=== PATIENT | male | born 1950 | race Caucasian/White ===

== ENCOUNTER 2020-12-30 09:39 | Observation (INO) | payer MEDICARE, SELFPAY ==
[2020-12-30] VITALS (11 sets, daily range): BP systolic 117–174; BP diastolic 57–105; PULSE 56–68; RESP 16–18; TEMP 36.4–37; O2SAT 93–100; BMI 28.5; BMI 30.1
--- NOTE | 2020-12-30 09:51 | RAD_ITS ---
STUDY: X-RAY CHEST REASON FOR EXAM: Male, 70 years old. Weakness TECHNIQUE: Single AP portable view of the chest. COMPARISON: None. FINDINGS: EKG electrodes are seen. There is elevation of the right hemidiaphragm. Mild increased linear markings at the lung bases suggestive of a bibasilar linear atelectasis. There is no demonstrated pleural abnormality. Normal size heart. Normal mediastinum and german. Normal visualized pulmonary arteries. There is atherosclerotic tortuosity of the aortic arch and descending thoracic aorta. There are diffuse degenerative changes of the visualized thoracic spine. There is degenerative osteoarthritis of the bilateral shoulders. There is no demonstrated abnormality of the visualized soft tissue structures of the upper abdomen. RAD/Chest 1 View (Portable) IMPRESSION: Mild degree of the atelectasis at the lung bases. Electronically Signed: Yordan Negro MD at 10:47 EDT , Service support ,
--- NOTE | 2020-12-30 09:51 | CT_ITS ---
STUDY: CT BRAIN WITHOUT CONTRAST REASON FOR EXAM: Male, 70 years old. Headache. Decreased vision in the left eye. RADIATION DOSAGE (If Supplied By Facility): CTDIvol = ( 44.99 ) mGy, DLP = ( 796.11 ) mGycm TECHNIQUE: Transaxial CT imaging of the brain was performed without administration of intravenous contrast material. Individualized dose optimization techniques were used for this CT. COMPARISON: No relevant priors. FINDINGS: Normal soft tissue structures. Normal calvarium. There is mild cerebral atrophy with widening of the extra-axial spaces and ventricular dilatation. There are areas of decreased attenuation within the white matter tracts of the supratentorial brain, consistent with microvascular disease changes. There are small punctate calcifications of the basal ganglia which are seen in the aging brain as a normal variant. Normal brainstem. Normal cerebellum. There is no intracranial hemorrhage. There are no findings of an acute ischemic infarction. Atherosclerotic changes of the cavernous portions of the internal carotid arteries bilaterally. Minimal mucosal thickening along the lateral wall of the right maxillary sinus. CT/Brain/Head without Contrast IMPRESSION: Chronic involutional changes of the brain. Electronically Signed: Yordan Negro MD at 10:32 EDT , Service support ,
--- NOTE | 2020-12-30 09:52 | ED.VIS.STROK ---
HPI History of Present Illness Chief Complaint: Neuro S/Sx Narrative Narrative: Patient developed vision loss in his left eye yesterday morning around 8 AM which is about 26 hours ago. He called his eye doctor for an appointment was seen this morning and was found to have a retinal artery occlusion. He also told me that for the past few days it has been more difficult to grasp objects with his right hands and he has been dropping objects more than normal. He has no sensory deficits, no weakness in the legs. No confusion. [facility] Medical History HLD (hyperlipidemia) HTN (hypertension) Home Medications atorvastatin 10 mg PO DAILY 12/30/20 [History Last Taken Unknown] epinephrine 0.3 mg IM PRN PRN 12/30/20 [History Last Taken Unknown] furosemide 20 mg PO DAILY 12/30/20 [History Last Taken Unknown] levothyroxine 112 mcg PO DAILY 12/30/20 [History Last Taken Unknown] losartan 25 mg PO DAILY 12/30/20 [History Last Taken Unknown] metoprolol succinate 25 mg PO DAILY 12/30/20 [History Last Taken Unknown] Allergy/AdvReac Type Severity Reaction Status Date / Time bee venom protein (honey bee) Allergy Anaphylaxis Verified 12/30/20 09:43 Penicillins Allergy Rash Verified 12/30/20 09:43 Social History Smoking Status: Never smoker ROS ROS ED ROS Narrative Past medical history: Reviewed, see above Medications: Reviewed Social history: Noncontributory Review of systems: All systems negative except as indicated General: No fever Eyes: Left eye vision changes as above ENT: No upper airway congestion, normal voice Neck: No neck pain Cardiovascular: No chest pain Respiratory: No shortness of breath or cough Gastrointestinal: No abdominal pain, nausea vomiting or diarrhea Genitourinary: No dysuria Musculoskeletal: Denies myalgias no difficulty with ambulation Skin: No rash Neurological: No memory loss, confusion or sensory deficit. Slight decreased strength in right hand. Psych: No recent behavioral changes Hematologic: No easy bleeding or easy bruising EXAM Physical Exam Narrative Exam Narrative: Physical exam General: Well nourished, Well developed, No Acute Distress Head: Normocephalic, Atraumatic Eyes: Left eye is dilated from the eye center. Otherwise no obvious gross deformity. ENT: Moist mucous membranes Neck: Supple, Nontender, No lymphadenopathy Cardiovascular: Regular rate, Regular rhythm Respiratory: No distress, CTA bilaterally Abdomen: Soft, Nontender, Nondistended Back: Nontender, Normal Inspection. Negative for: CVA tenderness Extremities: Nontender, No edema Skin: Normal color, No rash Neurological: Alert, Normal Strength, Normal Sensation, no decreased strength on the right hand that I can appreciate compared to the left. Otherwise see NIH stroke scale Psychological: Normal affect Const Vital Signs: 12/30/20 09:41 12/30/20 11:41 Temperature 97.6 F L Temperature Source Temporal Pulse Rate 57 L 61 Respiratory Rate 18 18 Blood Pressure 174/105 H 121/57 H Blood Pressure Mean 128 78 Pulse Ox 100 96 Oxygen Delivery Method Room Air Room Air STROKE Vital Signs/Narrative: Vital Signs Temp Pulse Resp BP Pulse Ox 12/30/20 11:41 61 18 121/57 H 96 12/30/20 09:41 97.6 F L 57 L 18 174/105 H 100 NIHSS Initial: 1a Level of Consciousness: 0 1b LOC Questions (Score 2 if aphasic/stupor): 0 1c LOC Commands (Only score 1st attempt): 0 2 Best Gaze (If aphasic, use reflexive mvmts.): 0 3 Visual: 0 (complete vision loss no hemianopsia) 4 Facial Palsy: 0 5 Motor Arm Right (UN = amputation/fusion): 0 5 Motor Arm Left: 0 6 Motor Leg Right: 0 6 Motor Leg Left: 0 7 Limb ataxia (Only + if out of proportion): 0 8 Sensory (Aphasia/stupor=0 or 1, coma=2): 0 9 Best Language: 0 10 Dysarthria (mute, coma=2, intubated=UN): 0 11 Extinction and Inattention (only scored if +): 0 Total Score: 0 MDM MDM MDM Narrative Medical decision making narrative: Patient has a normal work-up. I will admit for MRI. I did discuss with [facility] stroke neurologist who agrees with admission no intervention is possible at this time. Lab Data Labs: Laboratory Results - last 24 hr 12/30/20 12/30/20 12/30/20 10:00 10:00 10:00 WBC 5.0 RBC 5.14 Hgb 15.1 Hct 47.0 MCV 91.4 MCH 29.4 MCHC 32.1 RDW Std Deviation 46.1 H RDW Coeff of Kaylee 13.5 Plt Count 199 MPV 9.5 Immature Gran % (Auto) 0.400 Neut % (Auto) 56.6 Lymph % (Auto) 22.3 [place] % (Auto) 12.3 H Eos % (Auto) 7.4 H Baso % (Auto) 1.0 Absolute Neuts (auto) 2.9 Absolute Lymphs (auto) 1.12 Nucleated RBC % 0 PT 12.7 INR 1.0 Sodium 139 Potassium 4.5 Chloride 106 Carbon Dioxide 30.0 Anion Gap 3 L BUN 26 H Creatinine 1.36 H Estim Creat Clear Calc 53.89 Est GFR (MDRD) Af Amer 66 Est GFR (MDRD) Non-Af 55 L BUN/Creatinine Ratio 19.1 Glucose 103 Calcium 9.2 Total Bilirubin 0.70 AST 36 ALT 32 Alkaline Phosphatase 108 Troponin I High Sens 34 Total Protein 7.6 Albumin 3.4 Globulin 4.2 Albumin/Globulin Ratio 0.8 L Radiography Diagnostic Testing: Clinical Impression(s) from Imaging Studies Brain CT 12/30/20 09:51 IMPRESSION: Chronic involutional changes of the brain. Electronically Signed: Yordan Negro MD at 10:32 EDT , Service support , Chest X-Ray 12/30/20 09:51 IMPRESSION: Mild degree of the atelectasis at the lung bases. Electronically Signed: Yordan Negro MD at 10:47 EDT , Service support , Discharge Plan Triage Chief Complaint: Neuro S/Sx ED Provider: Donovan Starr Dx/Rx/DC Orders Clinical Impression: Acute retinal artery occlusion, Acute CVA (cerebrovascular accident) Prescriptions: No Action furosemide 40 mg tablet 20 mg PO DAILY RF: 0 atorvastatin 10 mg tablet 10 mg PO DAILY RF: 0 losartan 25 mg tablet 25 mg PO DAILY RF: 0 metoprolol succinate 25 mg tablet extended release 24 hr 25 mg PO DAILY RF: 0 epinephrine 0.3 mg/0.3 mL auto-injector 0.3 mg IM PRN PRN (Reason: Anaphylaxis) RF: 0 levothyroxine 112 mcg tablet 112 mcg PO DAILY RF: 0 Primary Care Provider: Magdalena Landis NP Referrals: Magdalena Landis NP, [employer] [Primary Care Provider] - Disposition Disposition: [facility]
[2020-12-30 10:05] LABS: Absolute Lymphocyte Count 1.12 X10^3/uL (0.83-4.51); Absolute Neutrophil Count 2.9 X10^3/uL (2.0-7.7); Basophil# 0.05 X10^3/uL; Eosinophil# 0.37 X10^3/uL; Eosinophils% 7.4 % (0-5); Hemoglobin 15.1 g/dL (13.0-16.5); Lymphocyte # 1.12 X10^3/ul (0.83-4.51); Lymphocyte % 22.3 % (19-41); Mean Corp Hgb Conc 32.1 g/dL (32-36); Mean Corpuscular Hgb 29.4 pg (27.0-32.0); Mean Corpuscular Volume 91.4 fL (80-94); Mean Platelet Vol. 9.5 fl (6.2-12.0); Monocyte# 0.62 X10^3/uL; Monocyte% 12.3 % (0-10); NRBC Flagged by Analyzer 0 % (0-5); Neutrophil # 2.85 X10^3/uL (2.7-7.7); Neutrophil % 56.6 % (47-70); Platelet Count 199 K/mm3 (150-450); RBC Distribution Width CV 13.5 % (11.6-14.6); RBC Distribution Width SD 46.1 fl (35.1-43.9); Red Blood Count 5.14 M/mm3 (4.6-6.2)
[2020-12-30 10:15] LABS: Prothrombin Time (Protime)PT. 12.7 SECONDS (11.7-14.9)
[2020-12-30 10:22] LABS: ALB/GLOB Ratio 0.8 RATIO (0.9-2.4); AST(SGOT) 36 U/L (15-37); Alanine Aminotransfer ALT/SGPT 32 U/L (16-61); Albumin, Serum 3.4 g/dL (3.2-5.0); Alkaline Phosphatase 108 U/L (45-117); Anion Gap 3 (5-15); BUN 26 mg/dL (7-18); BUN/Creat Ratio 19.1 RATIO (10-20); Calcium,Total 9.2 mg/dL (8.5-10.1); Chloride 106 mmol/L (98-107); Creatinine, Serum 1.36 mg/dL (0.70-1.30); EST Glomerular Filtration Rate 55 mL/min (>60); Est Glom Filt Rate - Afr Amer 66 mL/min (>60); Estimated Creatinine Clearance 53.89 ml/min; Globulin 4.2 g/dL (2.2-4.2); Glucose 103 mg/dL (74-106); Potassium 4.5 mmol/L (3.5-5.1); Protein, Total 7.6 g/dL (6.4-8.2); Sodium Level 139 mmol/L (136-145); Troponin-I HS 34 pg/mL (3.0-78.0)
--- NOTE | 2020-12-30 12:00 | EKG12_ITS ---
Test Reason : DR WHITE Blood Pressure : / mmHG Vent. Rate : 057 BPM Atrial Rate : 092 BPM P-R Int : 000 ms QRS Dur : 154 ms QT Int : 460 ms P-R-T Axes : 000 085 036 degrees QTc Int : 447 ms Sinus vs Ectopic Atrial Rhythm Right bundle branch block Abnormal ECG Confirmed by WARD MARES, JOHN ([id number]), production editor TIARA HASTINGS ([id number]) on 01/02/2021 11:11:01 AM Referred By: WIN Confirmed By:JOHN HOPPER MD
--- NOTE | 2020-12-30 12:51 | HP.PCM.HOS_ITS ---
HPI - General General Date of Admission: 12/30/20 HPI Narrative BLADIMIR MARTÍNEZ, is a 70 M with history of hypertension and dyslipidemia came to ER after he had sudden left eye blindness about 8 AM on 12/29 about 26 hours prior to arrival in the ER. Patient went to see his eye doctor was found to have retinal artery occlusion was told to come to ER. Patient also had difficulty in grasping objects and right hand and has been dropping objects but has resolved now. Denies other numbness tingling sensory deficit, paresthesia or weakness in legs. No altered mental status or confusion. No syncope. Patient states sometimes he gets dizzy intermittently for last 3 to 4 weeks but denied any acute weakness in lower extremity except mentioned above Twelve-lead EKG shows sinus rhythm 57 bpm with right bundle branch block, wide QRS, QTC 467. No previous EKG to compare. CT brain no acute change. No prior history of a stroke, coronary artery disease/OK/cardiac stent, peripheral arterial disease. Patient was a chronic smoker quit 24 years ago. Smoked 3 packs/day since teenage. ER physician and I talked to [facility] neurologist and reviewed the case and he thinks there is no role for any neuro intervention for left retinal ophthalmic artery artery blindness because it is over 24 hours. Patient needs admission for prevention of secondary prevention of stroke. [facility] Medical History HLD (hyperlipidemia) HTN (hypertension) Home Medications atorvastatin 10 mg PO DAILY 12/30/20 [History Last Taken Unknown] epinephrine 0.3 mg IM PRN PRN 12/30/20 [History Last Taken Unknown] furosemide 20 mg PO DAILY 12/30/20 [History Last Taken Unknown] levothyroxine 112 mcg PO DAILY 12/30/20 [History Last Taken Unknown] losartan 25 mg PO DAILY 12/30/20 [History Last Taken Unknown] metoprolol succinate 25 mg PO DAILY 12/30/20 [History Last Taken Unknown] Allergy/AdvReac Type Severity Reaction Status Date / Time bee venom protein (honey bee) Allergy Anaphylaxis Verified 12/30/20 09:43 Penicillins Allergy Rash Verified 12/30/20 09:43 Social History Smoking Status: Never smoker ROS ROS Narrative Constitutional: Denies fatigue and weakness HEENT: As mentioned in HPI reports systems reviewed and no addt'l complaints, except as documented Respiratory/Chest: Denies chest pain, shortness of breath at rest or with exertion Gastrointestinal: Denies coffee ground emesis, hematemesis or vomiting Genitourinary: Denies burning urination or new urinary tract symptoms Musculoskeletal: Reports joint pain and limited range of motion Neurologic: Denies seizure-like activity skin: No ulcer. No rash Endocrinology: Reports systems reviewed and no addt'l complaints, except as documented Hematologic/Lymphatic: Reports systems reviewed and no addt'l complaints, except as documented Rest 12 ROS are negative except as mentioned in HPI Vital Signs Vital Signs Vital Signs: 12/30/20 09:41 12/30/20 11:41 12/30/20 12:35 Temperature 97.6 F L 98.6 F Temperature Source Temporal Temporal Pulse Rate 57 L 61 56 L Respiratory Rate 18 18 18 Blood Pressure 174/105 H 121/57 H 117/102 H Blood Pressure Mean 128 78 107 Pulse Ox 100 96 95 Oxygen Delivery Method Room Air Room Air Room Air Weight Weight: 209 lb 15.845 oz Body Mass Index (BMI) 28.5 Physical Exam Narrative General: Alert, Oriented x3, Cooperative HEENT: Left eye vision: No hand movement or finger counting. Hazy light perception could not tell which direction of light. Right eye vision baseline, wears glasses. Peripheral vision intact in right eye. Oral: No Gingival or Mucosal Lesions/ Ulcerations Neck: Supple, No JVD, Negative Carotid Bruits Lungs: Air entry diminished in bilateral lung bases. No crepitation/rhonchi Cardiovascular: Sinus rhythm, Normal S1, Normal S2, No murmurs Abdomen: Bowel Sounds Present, Soft, Non Tender, Non-Distended : No renal angle tenderness. No suprapubic tenderness. Extremities: No edema, Capillary Refill Less than 3 Seconds Skin: No rashes, No breakdown Musculoskeletal: Muscle power 5/5 at major joints. No Tenderness to Palpation of Joints or Extremities Neurological: Left cranial nerve II lesion. No facial paralysis. DTR 2+/4 and Symmetrical, Neuro grossly intact Psych/Mental Status: Normal Affect, Appropriate. Results Lab / Micro Data Result Diagrams: 12/30/20 10:00 12/30/20 10:00 Labs: Laboratory Results - last 24 hr 12/30/20 10:00: WBC 5.0, RBC 5.14, Hgb 15.1, Hct 47.0, MCV 91.4, MCH 29.4, MCHC 32.1, RDW Std Deviation 46.1 H, RDW Coeff of Kaylee 13.5, Plt Count 199, MPV 9.5, Immature Gran % (Auto) 0.400, Neut % (Auto) 56.6, Lymph % (Auto) 22.3, [place] % (Auto) 12.3 H, Eos % (Auto) 7.4 H, Baso % (Auto) 1.0, Absolute Neuts (auto) 2.9, Absolute Lymphs (auto) 1.12, Nucleated RBC % 0 12/30/20 10:00: PT 12.7, INR 1.0 12/30/20 10:00: Sodium 139, Potassium 4.5, Chloride 106, Carbon Dioxide 30.0, Anion Gap 3 L, BUN 26 H, Creatinine 1.36 H, Estim Creat Clear Calc 53.89, Est GFR (MDRD) Af Amer 66, Est GFR (MDRD) Non-Af 55 L, BUN/Creatinine Ratio 19.1, Glucose 103, Calcium 9.2, Total Bilirubin 0.70, AST 36, ALT 32, Alkaline Phosphatase 108, Troponin I High Sens 34, Total Protein 7.6, Albumin 3.4, Globulin 4.2, Albumin/Globulin Ratio 0.8 L Radiology Impression Brain CT 12/30/20 09:51 IMPRESSION: Chronic involutional changes of the brain. Electronically Signed: Yordan Negro MD at 10:32 EDT , Service support , Chest X-Ray 12/30/20 09:51 IMPRESSION: Mild degree of the atelectasis at the lung bases. Electronically Signed: Yordan Negro MD at 10:47 EDT , Service support , Assessment & Plan Assessment/Plan (1) Acute retinal artery occlusion: (2) Acute CVA (cerebrovascular accident): PLAN: 1. Acute left retinal artery occlusion/acute ischemic stroke: Pat carmen is being admitted in PCU. Unfortunately out of time window for TPA and no role for neuro intervention for stroke. Stroke work-up including MRI brain, CTA head and neck, 2D echo, PT, OT, speech therapy evaluation and SOC neuro consult after work-up is done.. CTA head and neck after IV fluid normal skin hydration for 4 hours. Aspirin, Plavix and high intensity statin. BP and glucose control as per stroke guidelines. Currently blood pressure and glucose are controlled. Troponin normal. Chest within normal limit. 2. Mild acute kidney injury/CKD; unclear: No baseline available to compare. BUN/creatinine 26/1.36. IV fluid rehydration and follow kidney function. Estimated creatinine clearance 54 mL/min. 3. Hypertension and dyslipidemia: Fasting profile and TSH tomorrow a.m. Home medication continued with holding parameters Clinical Impression(s) from Imaging Studies Brain CT 12/30/20 09:51 IMPRESSION: Chronic involutional changes of the brain. Chest X-Ray 12/30/20 09:51 IMPRESSION: Mild degree of the atelectasis at the lung bases. Living will/advanced directive/end of life care: Patient doeshave living will or advanced directive. His eldest daughter is power of compliance attorney for health. After discussion of benefits/risks procedures involved with full code, DNR CC arrest and DNR CC, the patient opted for DNR-CC Arrest with no intubation Patient does not want artificial life support including intubation, tube feed, ventilator and/chest compression, central venous catheter, vasopressor and DC shock if needed Total time spent in [id number] encounter in discussion of advanced directive 16 minutes.
--- NOTE | 2020-12-30 13:18 | ECHOCS_ITS ---
Reason For Study: TIA/CVA Procedure This was a 2D Doppler, Color Flow transthoracic echocardiogram. The study was technically difficult. Contrast injection was performed. Exam performed portable in patient room. Left Ventricle Based on the 2D echocardiographic and contrast enhanced images obtained there appears to be grossly normal left ventricular size, wall motion, and systolic function. The estimated ejection fraction is 55 %. Diastolic function is indeterminate. Right Ventricle Normal RV size. Normal systolic function. Atria Normal left atrium. Normal right atrium. No doppler evidence for ASD. Bubble contrast study negative for right to left interatrial shunt. Mitral Valve There is moderate mitral annular calcification. Extension of the mitral annular calcification onto the base of the posterior mitral valve leaflet. Trivial mitral valve insufficiency. Tricuspid Valve Normal tricuspid valve. Trivial tricuspid valve insufficiency. Unable to estimate RV systolic pressure/pulmonary artery pressure due to technically difficult study. Aortic Valve The aortic valve is not well visualized. Pulmonic Valve The pulmonic valve is not well visualized. Great Vessels Normal sized aortic root. Pericardium/Pleural No pericardial effusion. Medication Performed a rapid injection of agitated mix of 9 cc saline and 1cc air to assess for atrial septal defect. Diluted definity 2ml given slow IV push to enhance endocardial definition. MMode/2D Measurements & Calculations LVIDd: 4.8 cm IVSd: 1.0 cm Ao root diam: 3.7 cm LVIDs: 2.8 cm LVPWd: 1.2 cm RVDd: 4.4 cm FS: 41.1 % LAV(MOD-bp): 45.4 ml LVAd ap4: 39.0 cm2 SV(MOD-sp4): 80.8 ml LAV(MOD-bp) Indexed: 20.6 ml/m2 LVLd ap4: 9.1 cm LAV(MOD-sp2): 36.5 ml EDV(MOD-sp4): 136.8 ml LAV(MOD-sp4): 56.5 ml EDV(sp4-el): 141.9 ml LVAs ap4: 21.8 cm2 LVLs ap4: 7.1 cm ESV(MOD-sp4): 56.0 ml ESV(sp4-el): 57.0 ml EF(MOD-sp4): 59.0 % EF(sp4-el): 59.8 % SV(sp4-el): 84.9 ml LA A4 area: 19.5 cm2 LA dimension(2D): 4.3 cm RA A4 area: 11.2 cm2 Doppler Measurements & Calculations MV E max perry: 56.2 cm/sec Lat Peak E' Perry: 9.2 cm/sec Med Peak E' Perry: 6.3 cm/sec MV A max perry: 75.9 cm/sec E/E' lat: 6.1 E/E' med: 9.0 MV E/A: 0.74 Ao V2 max: 135.9 cm/sec LV V1 max: 95.1 cm/sec PA V2 max: 72.2 cm/sec Ao max P.4 mmHg LV V1 max P.6 mmHg Ao V2 mean: 90.5 cm/sec Ao mean P.6 mmHg Ao V2 VTI: 30.5 cm ECHO/Echo Complete W/ Contrast Interpretation Summary The study was technically difficult. Contrast injection was performed. Based on the 2D echocardiographic and contrast enhanced images obtained there a ppears to be grossly normal left ventricular size, wall motion, and systolic function. The estimated ejection fraction is 55 %. There is moderate mitral annular calcification. Extension of the mitral annular calcification onto the base of the posterior mi tral valve leaflet. Trivial mitral valve insufficiency. Trivial tricuspid valve insufficiency. Unable to estimate RV systolic pressure/pulmonary artery pressure due to techni tate difficult study. Diastolic function is indeterminate. Bubble contrast study negative for right to left interatrial shunt. Ordering Physician: John Perez Referring Physician: Magdalena Landis Performed By: Francia Hicks, RDCS, RVT
--- NOTE | 2020-12-30 13:18 | MRI_ITS ---
STUDY: MRI BRAIN WITHOUT CONTRAST REASON FOR EXAM: Male, 70 years old. stroke -- sudden left eye blindness yesterday TECHNIQUE: Standardized multiplanar fat and water weighted pulse sequences were obtained. COMPARISON: CT earlier today FINDINGS: There is mild cerebral atrophy with widening of the extra-axial spaces and ventricular dilatation. There are a limited number of small white matter hyperintensities, distributed throughout the deep white matter tracts of the cerebral hemispheres, consistent with mild chronic white matter ischemic changes. There is no evidence for recent intracranial ischemia or other cause of cytotoxic edema on diffusion weighted imaging (DWI). Normal T2* images of the brain without demonstrated susceptibility artifact. There is no demonstrated hemosiderin stain. Normal bilateral basal ganglia. Normal thalami. There is no extra-axial fluid accumulation. Normal flow voids within the major intracranial circulation suggesting patency by spin echo criteria. Normal sella turcica, pituitary gland, infundibular stalk, optic chiasm and hypothalamus. Normal tectal plate and pineal gland. Normal midbrain, kerline and medulla. Normal cerebellum. Normal basal cisterns. Normal bilateral temporal bones. Normal bilateral internal auditory canals. There are bilateral ocular lens implants with otherwise normal intraorbital contents. Normal visualized paranasal sinuses. Normal calvarium and skull base. Normal visualized soft tissue structures. Normal visualized upper cervical spine. MRI/Brain without Contrast IMPRESSION: Involutional changes of the brain, as described above. No acute infarct. Electronically Signed: Otoniel Pak MD at 16:32 EDT Tel , Service support ,
[2020-12-30 13:26] LABS: Magnesium 2.1 mg/dL (1.6-2.6)
[2020-12-30] MEDS: Aspirin 81 MG TAB.CHEW PO (13:57)
[2020-12-30] MEDS: Enoxaparin 40 MG/0.4 ML Syringe SC (13:57)
[2020-12-30] MEDS: 0.9% Normal Saline 1,000 ML 100 ML IV (13:58)
[2020-12-30] MEDS: Clopidogrel Bisulfate 75 MG Tablet PO (13:58)
[2020-12-30] MEDS: LORazepam 2 MG/ML Syringe 1 MG IV (14:54)
--- NOTE | 2020-12-30 15:56 | CT_ITS ---
We are attempting to reach an attending provider to discuss findings. An addendum with communication details will be sent when the communication is complete. STUDY: CTA HEAD AND NECK WITH CONTRAST REASON FOR EXAM: Male, 70 years old. Neuro deficit, acute, stroke suspected RADIATION DOSAGE (If Supplied By Facility): CTDIvol = ( 35.08 ) mGy, DLP = ( 837.53 ) mGycm TECHNIQUE: CT angiography was performed with a multi-detector CT scanner. Data acquisition was obtained from the skull base through the vertex following intravenous administration of IV 100mL Isovue-370. MIP images were reconstructed from the axial data set. Post-processing of the angiographic images was performed, with multiplanar reformation and 3D reconstruction. Individualized dose optimization techniques were used for this CT. COMPARISON: No relevant priors. FINDINGS: Normal bilateral petrous carotid arteries. Normal right cavernous carotid artery with a normal supraclinoid bifurcation. Normal left cavernous carotid artery with a normal supraclinoid bifurcation. Normal right A1 segments of the anterior cerebral artery. Normal left A1 segments of the anterior cerebral artery. Normal intact anterior communicating artery (ACOM). Normal bilateral A2 segments of the anterior cerebral arteries. Normal right M1 and M2 segments of the middle cerebral arteries, with a normal M1 bifurcation. Normal left M1 and M2 segments of the middle cerebral arteries, with a normal M1 bifurcation. Normal right posterior communicating artery (PCOM). Normal left posterior communicating artery (PCOM). Normal bilateral vertebral arteries. Normal basilar artery with a normal basilar bifurcation. The visualized bilateral superior cerebellar (SCA) arteries are normal. Normal bilateral P1, P2 and visualized P3 segments of the posterior cerebral arteries. There is no demonstrated aneurysm of the [place]. There is no demonstrated abnormality of the visualized brain. AORTIC ARCH: Normal visualized aortic arch. Normal origins of the brachiocephalic, left common carotid, and left subclavian arteries. RIGHT CAROTID ARTERIES: Normal right common carotid artery (CCA). There is mild atherosclerotic plaque formation with minimal narrowing of the right carotid bulb. There is mild atherosclerotic plaque formation of the origin of the right internal carotid artery with less than 50% cross sectional diameter stenosis. Normal visualized cervical portion of the right internal carotid artery. Normal origin of the right external carotid artery (ECA). LEFT CAROTID ARTERIES: Normal left common carotid artery (CCA). There is moderate atherosclerotic plaque formation with moderate narrowing of the carotid bulb. There is moderate atherosclerotic plaque formation of the origin of the left internal carotid artery with an estimated stenosis of 50-69% stenosis. Normal visualized cervical portion of the left internal carotid artery. Normal origin of the left external carotid artery (ECA). VERTEBRAL ARTERIES: Calcified plaque of the origin the right vertebral artery produces a focal severe (80%) stenosis. Left vertebral artery is widely patent. CT/STROKE CTA Head AND Neck W/Con IMPRESSION: 1. Normal CTA Head with contrast. 2. Mild (20%) stenosis right carotid stenosis. 3. Moderate (60%) left carotid stenosis. 4. Calcified plaque of the origin of the right vertebral artery producing a focal severe (80%) stenosis. Left vertebral artery is widely patent. Electronically Signed: Otoniel Pak MD at 17:35 EDT Tel , Service support ,
--- NOTE | 2020-12-30 17:28 | PCS.PANDOC ---
PANDEMIC DOCUMENTATION INITIATED: Date: 10/10/2020 Time: 190
--- NOTE | 2020-12-30 19:29 | TELEMED_ITS ---
[facility] Tele[facility] has confirmed receipt of a request for visit. This document confirms receipt of the order initiating the consult. To find the results of the consultation, please view the patient's reports for the scanned Telemed Consult.
[2020-12-31 03:00] VITALS: PULSE 55
[2020-12-31 04:00] VITALS: BP 132/82; PULSE 58; RESP 16; TEMP 36.6; O2SAT 92
--- NOTE | 2020-12-31 05:55 | EKG12_ITS ---
Test Reason : AM EKG Blood Pressure : / mmHG Vent. Rate : 058 BPM Atrial Rate : 058 BPM P-R Int : 216 ms QRS Dur : 162 ms QT Int : 468 ms P-R-T Axes : 043 102 043 degrees QTc Int : 459 ms Sinus bradycardia with sinus arrhythmia with 1st degree A-V block Right bundle branch block Abnormal ECG Confirmed by WARD MARES, JOHN ([id number]), editor & co founder TIARA HASTINGS ([id number]) on 01/03/2021 9:00:08 AM Referred By: DR CARDENAS Confirmed By:JOHN HOPPER MD
[2020-12-31] MEDS: Levothyroxine 112 MCG Tablet PO (06:38)
[2020-12-31 06:50] VITALS: PULSE 58
[2020-12-31 07:26] VITALS: O2SAT 91
[2020-12-31 08:27] LABS: Cholesterol 149 mg/dL (200); High Density Lipoprotein 59 mg/dL; Thyroid Stim Hormone (TSH) 0.75 uIU/mL (0.358-3.74); Triglycerides 46 mg/dL; Very Low Density Lipoprotein 9 mg/dL (5-40)
[2020-12-31 08:52] VITALS: BP 138/90; PULSE 65; RESP 18; TEMP 36.3; O2SAT 93
[2020-12-31] MEDS: Furosemide 20 MG Tablet PO (09:03)
[2020-12-31 09:07] VITALS: BP 138/90; PULSE 65
[2020-12-31] MEDS: Enoxaparin 40 MG/0.4 ML Syringe SC (09:07)
[2020-12-31] MEDS: Metoprolol(XL)Succ 25 MG Tablet PO (09:07)
[2020-12-31] MEDS: Aspirin 81 MG TAB.CHEW PO (09:07)
[2020-12-31] MEDS: Losartan Potassium 25 MG Tablet PO (09:07)
[2020-12-31] MEDS: Clopidogrel Bisulfate 300 MG Tablet PO (09:11)
[2020-12-31] MEDS: 0.9% Saline Lock 10 ML Syringe IV (09:11)
[2020-12-31 09:12] LABS: Erythrocyte Sedimentation Rate 38 mm/hr (0-20)
[2020-12-31 09:58] LABS: Hemoglobin A1c 6.1 % (3.8-5.6)
--- NOTE | 2020-12-31 10:42 | PCM.DC ---
Discharge Instructions Diet Discharge Diet: Low fat / Low cholesterol and 2000 mg Sodium Diet Activity Discharge Activity: Return to Normal Activity Weight Bearing Status: Weight bearing as tolerated Dressing / Incision Call your doctor if you observe: Fever of 101 or Higher, Coldness, Increased Pain, Numbness or Tingling, Change in Color, Inability to urinate, Inability to have a bowel movement, Shortness of breath, Dizziness, Fainting spells, Swelling in the ankles, Chest pain, Prolonged hiccupping, Increased palpitations (irregular heartbeat), Calf discomfort and Uncontrolled pain Follow Up Care Test Results: Test results from this visit will be discussed in further detail at your follow-up appointment, if applicable. Discharge Plan Admission Admit Date/Time: 12/30/20 12:52 Primary Reason for Your Visit: Left retinal artery occlusion Attending Provider: John Perez Primary Care Provider: Magdalena Landis NP Instructions Additional Instructions / Restrictions: 30-day event monitor. 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 Follow-up with Dr. Henson after 30-day event monitor. Discharge Orders/Prescriptions Prescriptions: New clopidogrel 75 mg Tablet 75 mg PO DAILY Qty: 21 RF: 0 aspirin 81 mg Tablet,Chewable 81 mg PO BREAKFAST Qty: 30 RF: 2 atorvastatin 40 mg tablet 40 mg PO QHS Qty: 30 RF: 2 Continued furosemide 40 mg tablet 20 mg PO DAILY RF: 0 losartan 25 mg tablet 25 mg PO DAILY RF: 0 metoprolol succinate 25 mg tablet extended release 24 hr 25 mg PO DAILY RF: 0 epinephrine 0.3 mg/0.3 mL auto-injector 0.3 mg IM PRN PRN (Reason: Anaphylaxis) RF: 0 levothyroxine 112 mcg tablet 112 mcg PO DAILY RF: 0 Discontinued atorvastatin 10 mg tablet 10 mg PO DAILY RF: 0 Other Ambulatory Orders: 30-Day Event Recorder (Routine) Location: None Selected Ordered By: Dr. John Perez Referrals / Follow Up: Jefferson Larkin MD [STAFF PHYSICIAN] - Within 2 Weeks (for left eye vision loss or left optic nerve palsy) Nathaniel Harmon MD [STAFF PHYSICIAN] - Within 1 Month (for Left carotid stenosis or Left vertebral stenosis) Magdalena Landis NP, WAREHOUSE LEAD-C [Primary Care Provider] - Within 2 Weeks Disposition Disposition (needs filled in before D/C Order can be placed): Home, Self Care
--- NOTE | 2020-12-31 10:43 | DS.PCM_ITS ---
Providers Date of Admission: 12/30/20 Date of Discharge: 12/31/20 Primary Care Physician: BHAVANA Corona Reason For Visit: JUAREZ,CVA Diagnosis Discharge Diagnosis (1) Acute retinal artery occlusion: Status: Acute Code(s): H34.9 - Unspecified retinal vascular occlusion (2) Acute CVA (cerebrovascular accident): Status: Acute Code(s): I63.9 - Cerebral infarction, unspecified Medications at Discharge Home Medications epinephrine 0.3 mg IM PRN PRN 12/30/20 furosemide 20 mg PO DAILY 12/30/20 levothyroxine 112 mcg PO DAILY 12/30/20 losartan 25 mg PO DAILY 12/30/20 metoprolol succinate 25 mg PO DAILY 12/30/20 aspirin 81 mg PO BREAKFAST #30 tab 12/31/20 atorvastatin 40 mg PO QHS #30 tab 12/31/20 clopidogrel 75 mg PO DAILY #21 tab 12/31/20 Hospital Course Summary of Care Provided Hospital Course: This 70-year-old question gentleman with history hypertension dyslipidemia was sent to ER by [facility] for sudden left eye blindness happened at about 8 AM on 12/29 patient was seen in ER after 26-hour. Patient was admitted in PCU for further assessment and evaluation and secondary prevention of a stroke. Twelve-lead EKG shows normal sinus rhythm with right bundle branch block. [facility] neurologist was consulted in the ED and found no neuro intervention indicated after 24 hours because of a small ophthalmic artery. His hospital course as follows 1. Acute left retinal artery occlusion: Stroke work-up including MRI brain, CTA head and neck, 2D echo, PT, OT, speech therapy evaluation and [facility] neuro consult was done as per protocol.CT head was negative acute intracranial abnormality. MRI brain did not show acute infarct. CTA head normal but CTA neck showed 50 to 69% stenosis of left ICA and focal calcific plaque of right vertebral artery origin stenosis about 80%. 2D echo no PFO or ASD. EF 55%. A1c 6.1% suggestive of prediabetes. BP in acceptable limit electrolytes within normal limit. TSH 0.75. Fasting profile within normal limit. ESR 38 mm/h, elevated. Patient does not have temporal headache and usually GCA ESR exceed 50 mm or but ESR sensitivity is 84%. Overall it seems a vascular event from left carotid artery stenosis. I discussed with vascular surgeon Dr. Nathaniel Harmon and he agrees with the plan of continuation of medical treatment and follow-up in the office. Patient started on aspirin and Plavix loading dose and continue to hold antiplatelet for 21 days and then lifelong aspirin 81 mg daily. High intensity atorvastatin 40 mg daily. 30-day event monitor authorized by Dr. Henson. Follow-up outpatient neurology Dr. Larkin, [facility], Dr. Nathaniel Harmon and PCP. Discharge medications and follow-up instructions discussed with the patient and his daughter who is RN near the bedside 2. Mild acute kidney injury/CKD; unclear: No baseline available to compare. BUN/creatinine 26/1.36 mildly elevated from my normal 1.30. Patient was well hydrated with normal saline after contrast study. Follow with PCP 3. Hypertension and dyslipidemia: As mentioned above Discharge medication reconciliation done. Discharge follow-up instructions c ompleted. Discharge process discussed with the patient and all questions were answered to patient's satisfaction. Total time spent, exact 35 minutes on discharge meds reconciliation, examination, coordination of care with nurses and ancillary staff, review of imaging and blood test and discussion with the patient on follow-up instructions Clinical Impression(s) from Imaging Studies Brain CT 12/30/20 09:51 IMPRESSION: Chronic involutional changes of the brain. Electronically Signed: Yordan Negro MD at 10:32 EDT , Service support , Chest X-Ray 12/30/20 09:51 IMPRESSION: Mild degree of the atelectasis at the lung bases. Electronically Signed: Yordan Negro MD at 10:47 EDT , Service support , Brain MRI 12/30/20 13:18 IMPRESSION: Involutional changes of the brain, as described above. No acute infarct. Electronically Signed: Otoniel Pak MD at 16:32 EDT Tel , Service support , Echocardiogram 12/30/20 13:18 Interpretation Summary The study was technically difficult. Contrast injection was performed. Based on the 2D echocardiographic and contrast enhanced images obtained there appears to be grossly normal left ventricular size, wall motion, and systolic function. The estimated ejection fraction is 55 %. There is moderate mitral annular calcification. Extension of the mitral annular calcification onto the base of the posterior mitral valve leaflet. Trivial mitral valve insufficiency. Trivial tricuspid valve insufficiency. Unable to estimate RV systolic pressure/pulmonary artery pressure due to technically difficult study. Diastolic function is indeterminate. Bubble contrast study negative for right to left interatrial shunt. Head/Neck CTA 12/30/20 15:56 IMPRESSION: 1. Normal CTA Head with contrast. 2. Mild (20%) stenosis right carotid stenosis. 3. Moderate (60%) left carotid stenosis. 4. Calcified plaque of the origin of the right vertebral artery producing a focal severe (80%) stenosis. Left vertebral artery is widely patent. Physical Exam Narrative General: Alert, Oriented x3, Cooperative HEENT: Left eye vision: No hand movement or finger counting. Hazy light perception could not tell which direction of light. Right eye vision baseline, wears glasses. Peripheral vision intact in right eye. Oral: No Gingival or Mucosal Lesions/ Ulcerations Neck: Supple, No JVD, Negative Carotid Bruits Lungs: Air entry diminished in bilateral lung bases. No crepitation/rhonchi Cardiovascular: Sinus rhythm, Normal S1, Normal S2, No murmurs Abdomen: Bowel Sounds Present, Soft, Non Tender, Non-Distended : No renal angle tenderness. No suprapubic tenderness. Extremities: No edema, Capillary Refill Less than 3 Seconds Skin: No rashes, No breakdown Musculoskeletal: Muscle power 5/5 at major joints. No Tenderness to Palpation of Joints or Extremities Neurological: Left cranial nerve II lesion. No facial paralysis. DTR 2+/4 and Symmetrical, Neuro grossly intact Psych/Mental Status: Normal Affect, Appropriate. Weight / BMI Weight Weight: 216 lb 4 oz Body Mass Index (BMI) 30.1 ABG / Lab / Microbiology Data Result Diagrams: 12/30/20 10:00 12/30/20 10:00 Laboratory: Laboratory Results - last 24 hr 12/30/20 10:00: Magnesium 2.1 12/31/20 07:02: Phosphorus 3.0, Triglycerides 46, Cholesterol 149, LDL Cholesterol 81, VLDL Cholesterol 9, HDL Cholesterol 59, TSH 0.75 12/31/20 07:02: ESR 38 H 12/31/20 07:02: Hemoglobin A1c 6.1 H Radiography Diagnostic Testing: Radiology Impression Chest X-Ray 12/30/20 09:51 IMPRESSION: Mild degree of the atelectasis at the lung bases. Electronically Signed: Yordan Negro MD at 10:47 EDT , Service support , Brain MRI 12/30/20 13:18 IMPRESSION: Involutional changes of the brain, as described above. No acute infarct. Electronically Signed: Otoniel Pak MD at 16:32 EDT Tel , Service support , Echocardiogram 12/30/20 13:18 Interpretation Summary The study was technically difficult. Contrast injection was performed. Based on the 2D echocardiographic and contrast enhanced images obtained there appears to be grossly normal left ventricular size, wall motion, and systolic function. The estimated ejection fraction is 55 %. There is moderate mitral annular calcification. Extension of the mitral annular calcification onto the base of the posterior mitral valve leaflet. Trivial mitral valve insufficiency. Trivial tricuspid valve insufficiency. Unable to estimate RV systolic pressure/pulmonary artery pressure due to technically difficult study. Diastolic function is indeterminate. Bubble contrast study negative for right to left interatrial shunt. __ Ordering Physician: John Perez Referring Physician: Magdalena Landis Performed By: Francia Hicks, RDCS, RVT Head/Neck CTA 12/30/20 15:56 IMPRESSION: 1. Normal CTA Head with contrast. 2. Mild (20%) stenosis right carotid stenosis. 3. Moderate (60%) left carotid stenosis. 4. Calcified plaque of the origin of the right vertebral artery producing a focal severe (80%) stenosis. Left vertebral artery is widely patent. Electronically Signed: Otoniel Pak MD at 17:35 EDT Tel , Service support , ADDENDUM: 12/30/20 1742 IMPRESSION: 1. Normal CTA Head with contrast. 2. Mild (20%) stenosis right carotid stenosis. 3. Moderate (60%) left carotid stenosis. 4. Calcified plaque of the origin of the right vertebral artery producing a focal severe (80%) stenosis. Left vertebral artery is widely patent. N.B. : The above Results were Read Back by Otoniel Pak MD to Bennie Leavitt RN, and understanding confirmed on 12/30/2020 17:36:02 (ET). Electronically Signed: Otoniel Pak MD at 17:35 EDT Tel , Service support , D/C Instructions Discharge Diet: Low fat / Low cholesterol and 2000 mg Sodium Diet Weight Bearing Status: Weight bearing as tolerated Call your doctor if you observe: Fever of 101 or Higher, Coldness, Increased Pain, Numbness or Tingling, Change in Color, Inability to urinate, Inability to have a bowel movement, Shortness of breath, Dizziness, Fainting spells, Swelling in the ankles, Chest pain, Prolonged hiccupping, Increased palpitations (irregular heartbeat), Calf discomfort and Uncontrolled pain Meaningful Use Info Meaningful Use Diagnoses (Choose all that apply): None applicable Discharge Plan Admission Admit Date/Time: 12/30/20 12:52 Primary Reason for Your Visit: Left retinal artery occlusion Attending Provider: John Perez Primary Care Provider: Magdalena Landis NP Instructions Additional Instructions / Restrictions: 30-day event monitor. Come to supervisor opening and picking on 01/02 or 01/13 morning. Follow-up with Dr. Henson after 30-day event monitor. Follow-up in the [facility] in 2 weeks Discharge Orders/Prescriptions Prescriptions: New clopidogrel 75 mg Tablet 75 mg PO DAILY Qty: 21 RF: 0 aspirin 81 mg Tablet,Chewable 81 mg PO BREAKFAST Qty: 30 RF: 2 atorvastatin 40 mg tablet 40 mg PO QHS Qty: 30 RF: 2 Continued furosemide 40 mg tablet 20 mg PO DAILY RF: 0 losartan 25 mg tablet 25 mg PO DAILY RF: 0 metoprolol succinate 25 mg tablet extended release 24 hr 25 mg PO DAILY RF: 0 epinephrine 0.3 mg/0.3 mL auto-injector 0.3 mg IM PRN PRN (Reason: Anaphylaxis) RF: 0 levothyroxine 112 mcg tablet 112 mcg PO DAILY RF: 0 Discontinued atorvastatin 10 mg tablet 10 mg PO DAILY RF: 0 Other Ambulatory Orders: 30-Day Event Recorder (Routine) Location: None Selected Ordered By: Dr. John Perez Referrals / Follow Up: Jefferson Larkin MD [STAFF PHYSICIAN] - Within 2 Weeks (for left eye vision loss or left optic nerve palsy) Nathaniel Harmon MD [STAFF PHYSICIAN] - Within 1 Month (for Left carotid stenosis or Left vertebral stenosis) Magdalena Landis NP, CONCRETE CURER-C [Primary Care Provider] - Within 2 Weeks Disposition Disposition (needs filled in before D/C Order can be placed): Home, Self Care Charges/Coding Visit Charges OBSV E&M: 91711 Observation care discharge
== END 2020-12-31 10:39 | disposition home or self-care (01) ==
LOC: ED 11:58 → PCU 13:21
PROVIDERS: Admitting Provider Internal Medicine; Emergency Provider Emergency Medicine; PCP Nurse Practitioner Family; Visit Provider Internal Medicine
DX: H34.12 Central retinal artery occlusion, left eye (principal); I63.9 Cerebral infarction, unspecified; E78.5 Hyperlipidemia, unspecified; R29.700 NIHSS score 0; I12.9 Hypertensive chronic kidney disease with stage 1 through stage 4 chronic kidney disease, or unspecified chronic kidney disease; N18.9 Chronic kidney disease, unspecified; Z79.899 Other long term (current) drug therapy; Z87.891 Personal history of nicotine dependence; I45.10 Unspecified right bundle-branch block
CPT/HCPCS: 36415; 70450; 70496; 70498; 70551; 71045; 80053; 80061; 83036; 83735; 84100; 84443; 84484; 85025; 85610; 85652; 92522; 92610; 93005; 93306; 94762; 96361; 96372; 96374; 99218; 99285; J7030; Q9957; Q9967; A4216; C8929; G0378; J3490

== ENCOUNTER → 2021-01-10 12:07 | Outpatient (CLI) | payer MEDICARE, SELFPAY ==
[2021-01-10 15:18] LABS: Vitamin B12 253 pg/mL (211-911)
[2021-01-12 14:09] LABS: Free Kappa Light Chains 46.2 mg/L (3.3-19.4); Free Lambda Light Chains 44.7 mg/L (5.7-26.3)
== END ==
PROVIDERS: PCP Nurse Practitioner Family; Referring Provider Psychiatry & Neurology Neurology; Visit Provider Psychiatry & Neurology Neurology
DX: G62.9 Polyneuropathy, unspecified (principal)
CPT/HCPCS: 36415; 82607; 82746; 83883

== ENCOUNTER → 2021-01-13 10:38 | Outpatient (CLI) | payer MEDICARE, SELFPAY ==
--- NOTE | 2021-01-13 10:40 | CDU_ITS ---
Reason For Study: Retinal Artery Occlusion Rt. Velocities/BP Lt. Velocities/BP Prox CCA 79/15 cm/sec. Prox CCA 79/13 cm/sec. Mid CCA 70/15 cm/sec. Mid CCA 56/13 cm/sec. Dist CCA 64/17 cm/sec. Dist CCA 64/18 cm/sec. Prox ICA 50/13 cm/sec. Prox ICA 28/11 cm/sec. Mid ICA 51/20 cm/sec. Mid ICA 52/18 cm/sec. Dist ICA 54/17 cm/sec. Dist ICA 65/26 cm/sec. Rt. ICA/CCA = 0.8. Lt. ICA/CCA = 1.2. Prox ECA 63/8 cm/sec. Prox ECA 71/10 cm/sec. Rt. Vert. 37/10 cm/sec. Lt. Vert. 33/14 cm/sec. Right Extracranial There is heterogeneous, irregular atherosclerotic plaque noted in the right common carotid artery. There is heterogeneous, irregular atherosclerotic plaque noted in the right internal carotid artery. There is heterogeneous, irregular atherosclerotic plaque noted in the right external carotid artery. Antegrade flow is noted in the right vertebral artery. Left Extracranial There is heterogeneous, irregular atherosclerotic plaque noted in the left common carotid artery. There is heterogeneous, irregular atherosclerotic plaque noted in the left internal carotid artery. There is heterogeneous, irregular atherosclerotic plaque noted in the left external carotid artery. Antegrade flow is noted in the left vertebral artery. Procedure Carotid Duplex [id number]. This is a Carotid Duplex examination using B-mode, color flow and specral Doppler. Exam performed in department. VL/Carotid Duplex Ultrasound Interpretation Summary Heterogenous focal calcific plaque in the proximal right internal carotid arter y with mild shadowing but less than 50% stenosis of the right internal carotid artery Less than 50% stenosis right external carotid artery Focal irregular calcific plaque with shouting at the proximal left internal car otid artery with less than 50% stenosis Less than 50% stenosis left external carotid artery Patent antegrade vertebral arteries bilaterally Ordering Physician: Jefferson Larkin Referring Physician: Magdalena Landis NP Performed By: Francia Hicks RDCS, RVT
== END ==
PROVIDERS: PCP Nurse Practitioner Family; Referring Provider Psychiatry & Neurology Neurology; Visit Provider Psychiatry & Neurology Neurology
DX: H34.12 Central retinal artery occlusion, left eye (principal); G62.9 Polyneuropathy, unspecified
CPT/HCPCS: 93880

== ENCOUNTER 2021-01-29 17:49 | Inpatient (IN) | payer MEDICARE, SELFPAY ==
[2021-01-29] VITALS (12 sets, daily range): BP systolic 89–114; BP diastolic 64–72; PULSE 69–105; RESP 19–30; TEMP 36.6–37; O2SAT 84–96; BMI 30.4
--- NOTE | 2021-01-29 18:11 | RAD_ITS ---
STUDY: X-RAY CHEST REASON FOR EXAM: Male, 70 years old. cough LOW SPO2, COUGH, WEAKNESS PT HASN''T BEEN EATING OR DRINKING OVER LAST WEEK TECHNIQUE: Frontal view of the chest COMPARISON: 30 December 2020 FINDINGS: Pulmonary volumes are low with elevation of both hemidiaphragms. There is right lower lung opacity and possible left retrocardiac opacity. There is no pneumothorax, pulmonary edema or moderate/large pleural effusions. Cardiac silhouette cannot be evaluated due to obscuration of both heart borders. However, this probably mild cardiomegaly. RAD/Chest 1 View (Portable) IMPRESSION: Presumed right lower lung pneumonia. Electronically Signed: Kaleb Santizo MD at 20:23 EST Tel , Service support ,
--- NOTE | 2021-01-29 18:11 | EKG12_ITS ---
Test Reason : SOB Blood Pressure : / mmHG Vent. Rate : 100 BPM Atrial Rate : 100 BPM P-R Int : 162 ms QRS Dur : 150 ms QT Int : 396 ms P-R-T Axes : 031 102 033 degrees QTc Int : 510 ms Normal sinus rhythm Right bundle branch block Abnormal ECG Confirmed by ARPITA MARES, ABEBA ([id number]), staff editor TIARA HASTINGS ([id number]) on 01/30/2021 10:45:01 AM Referred By: EULOGIO Confirmed By:ABEBA PALM MD
--- NOTE | 2021-01-29 18:13 | ED.VIS.DYS ---
HPI History of Present Illness Chief Complaint: Shortness of Breath Informant: patient Onset/Context/Timing Onset: Weeks (1) Context: gradual Timing: Continuous Quality: Positive for Dyspnea on exertion Worsened by: Exertion Relieved by: Oxygen Associated Symptoms cough and white sputum; Negative for rhinorrhea, ear pain, fever, sore throat or chills Narrative Narrative: Patient presents with shortness of breath that has been getting worse over the last week. Patient states that his breathing is worse with any exertion. Patient states his breathing is better with oxygen. Daughter states she went to check on him today and he was still laying in bed. Daughter states he was confused. Daughter states the confusion improved with oxygen. Patient admits to a cough with some white and brown sputum. Daughter states patient had a low-grade temperature up to 100 at home. Patient denies any chest pain. Patient denies any nausea or vomiting. Patient does admit to a mild headache. Patient admits to generalized weakness. Patient also admits to some neck and back pain. 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) HLD (hyperlipidemia) Hypothyroidism Mitral annular calcification Obstructive sleep apnea Right bundle branch block (RBBB) Right carpal tunnel syndrome Spinal stenosis Venous insufficiency (chronic) (peripheral) Home Medications epinephrine 0.3 mg IM PRN PRN 12/30/20 [History Last Taken Unknown] levothyroxine 112 mcg tablet 112 mcg PO DAILY 01/10/21 [History Last Taken Unknown] apixaban 5 mg tablet 5 mg PO BID #180 tab 01/18/21 [Rx Last Taken Unknown] atorvastatin 40 mg tablet 40 mg PO QHS #90 tab 01/18/21 [Rx Last Taken Unknown] dorzolamide 2 % eye drops 1 drp OPHTHALMIC (EYE) TID 01/18/21 [History Last Taken Unknown] losartan 25 mg tablet 25 mg PO DAILY PRN 01/18/21 [History Last Taken Unknown] prednisolone acetate 1 % eye drops,suspension drp OPHTHALMIC (EYE) 01/18/21 [History Last Taken Unknown] furosemide 40 mg PO DAILY 01/29/21 [History Last Taken Unknown] metoprolol succinate 25 mg PO DAILY 01/29/21 [History Last Taken Unknown] Allergy/AdvReac Type Severity Reaction Status Date / Time bee venom protein (honey bee) Allergy Anaphylaxis Verified 01/29/21 17:56 Penicillins Allergy Rash Verified 01/29/21 17:56 Surgical History History of arthroscopy of right knee History of cataract extraction History of colonoscopy History of elbow surgery History of left heart catheterization (~2009) History of tonsillectomy and adenoidectomy Social History Smoking Status: Never smoker Tobacco: How many years used: 30 Electronic Cigarette Use: not used how long ago did patient quit smoking: quit 24 years ago second hand exposure: No alcohol intake: never substance use type: does not use ROS ROS ED Constitutional Constitutional ED: Denies chills or fever(s) Eyes Eyes: Denies blurry vision or change in vision ENT ENT ED: Denies rhinorrhea or sore throat Cardiovascular Cardiovascular: Denies chest pain or palpitations Respiratory/Chest Respiratory/Chest: Denies cough or dyspnea Gastrointestinal Gastrointestinal: Denies nausea or vomiting Genitourinary Genitourinary ED: Denies dysuria or hematuria Musculoskeletal Musculoskeletal: Reports back pain and neck pain Integumentary Denies abscess or rash Neurologic Neurologic: Reports headache(s) and weakness Allergic/Immunologic Allergic/Immunologic ED: Denies mouth swelling or urticaria EXAM Physical Exam Const Vital Signs: 01/29/21 17:50 01/29/21 17:55 01/29/21 18:02 Temperature 98.6 F 98.6 F Temperature Source Oral Oral Pulse Rate 105 H 99 Respiratory Rate 28 H 30 H Respiratory Effort Short of Breath Respiratory Pattern Tachypnea Blood Pressure 114/65 114/65 Blood Pressure Mean 81 81 Pulse Ox 88 84 Oxygen Delivery Method Room Air Nasal Cannula Oxygen Flow Rate (L/min) 2 4 01/29/21 19:49 01/29/21 19:55 01/29/21 20:10 Temperature 97.8 F Temperature Source Temporal Pulse Rate 93 94 Respiratory Rate 23 H 26 H Respiratory Effort Respiratory Pattern Blood Pressure 99/66 98/64 Blood Pressure Mean 77 75 Pulse Ox 91 89 91 Oxygen Delivery Method Nasal Cannula Nasal Cannula High Flow Oxygen Flow Rate (L/min) 6 6 9 01/29/21 21:00 01/29/21 21:45 01/29/21 22:00 Temperature 97.8 F 98.2 F Temperature Source Oral Temporal Pulse Rate 94 82 Respiratory Rate 22 H 21 H Respiratory Effort Respiratory Pattern Blood Pressure 100/72 89/66 L 89/65 L Blood Pressure Mean 81 73 73 Pulse Ox 92 93 Oxygen Delivery Method Airvo Nasal Cannula Oxygen Flow Rate (L/min) 9 9 01/29/21 23:00 Temperature Temperature Source Pulse Rate 72 Respiratory Rate 19 H Respiratory Effort Respiratory Pattern Blood Pressure 99/64 Blood Pressure Mean 75 Pulse Ox 93 Oxygen Delivery Method Airvo Oxygen Flow Rate (L/min) 9 Positive well nourished and well developed General Appearance ED: well developed HEENT Reports moist mucous membranes Neck supple and no JVD Resp normal respiratory effort Auscultation: rhonchi throughout Cardio regular rate, regular rhythm and no murmurs GI normal to inspection, nondistended, normoactive bowel sounds, non-tender and non-distended Auscultation: normoactive bowel sounds Palpation: soft Extremity normal to inspection General Extremety ED: Negative for edema or tenderness General Extremity: Negative for edema Neuro oriented x3, CN's II-XII intact bilaterally and no sensory deficits noted Sensorium / Orientation: alert Motor Exam: strength 5/5 throughout Psych mental status grossly normal Skin no rashes or lesions noted MDM MDM MDM Narrative Medical decision making narrative: Patient was given 4 puffs of an albuterol inhaler. Patient was given a dose of Decadron. Patient was given a dose of Tylenol. Patient was given some IV fluids. COVID-19 rapid antigen was obtained and was positive. CBC was within normal limits. Comprehensive metabolic profile showed a creatinine of 1.99 which is increased from previous result. Lactate was normal at 1.6. Portable chest x-ray was obtained. There is 1 view. On my interpretation, there is right lower lobe infiltrate. There is a questionable left lower lobe infiltrate. Bony thorax is normal. There is no cardiomegaly. Radiologist also interpreted the x-ray. He agrees with the right lower lobe infiltrate. He does not comment on the left lower lobe. Patient was placed on high flow nasal cannula oxygen. Patient's oxygen improved to 93%. Patient did drop his blood pressure into the 80s. Patient was given another bolus of normal saline. D-dimer was ordered and was elevated at 3.3. Case was discussed with the hospitalist. He will admit the patient to PCU. Patient understands and is agreeable with the plan. All questions were answered. Lab Data Attestation: I reviewed the patient's lab results. Labs: Laboratory Results - last 24 hr 01/29/21 01/29/21 01/29/21 17:27 17:27 18:30 WBC 5.4 RBC 5.54 Hgb 15.6 Hct 48.3 MCV 87.2 MCH 28.2 MCHC 32.3 RDW Std Deviation 43.1 RDW Coeff of Kaylee 13.3 Plt Count 143 L MPV 10.9 Immature Gran % (Auto) 0.200 Neut % (Auto) 74.6 H Lymph % (Auto) 13.1 L [place] % (Auto) 11.9 H Eos % (Auto) 0.0 Baso % (Auto) 0.2 Absolute Neuts (auto) 4.0 Absolute Lymphs (auto) 0.70 L Nucleated RBC % 0 D-Dimer Quant (PE/DVT) Sodium 138 Potassium 3.9 Chloride 103 Carbon Dioxide 27.0 Anion Gap 8 BUN 57 H Creatinine 1.99 H Estim Creat Clear Calc 34.65 Est GFR (MDRD) Af Amer 43 L Est GFR (MDRD) Non-Af 35 L BUN/Creatinine Ratio 28.6 H Glucose 101 Lactic Acid 1.6 Calcium 8.7 Total Bilirubin 0.70 AST 57 H ALT 35 Alkaline Phosphatase 70 Total Protein 7.4 Albumin 2.7 L Globulin 4.7 H Albumin/Globulin Ratio 0.6 L POC Glucose 01/29/21 01/29/21 18:30 21:56 WBC RBC Hgb Hct MCV MCH MCHC RDW Std Deviation RDW Coeff of Kaylee Plt Count MPV Immature Gran % (Auto) Neut % (Auto) Lymph % (Auto) [place] % (Auto) Eos % (Auto) Baso % (Auto) Absolute Neuts (auto) Absolute Lymphs (auto) Nucleated RBC % D-Dimer Quant (PE/DVT) 3.30 H* Sodium Potassium Chloride Carbon Dioxide Anion Gap BUN Creatinine Estim Creat Clear Calc Est GFR (MDRD) Af Amer Est GFR (MDRD) Non-Af BUN/Creatinine Ratio Glucose Lactic Acid Calcium Total Bilirubin AST ALT Alkaline Phosphatase Total Protein Albumin Globulin Albumin/Globulin Ratio POC Glucose 101 Radiography Chest X-Ray - ED: 1 View, Read by ED Physician, Read by Radiologist and Right Infiltrate Diagnostic Testing: Clinical Impression(s) from Imaging Studies Chest X-Ray 01/29/21 18:11 IMPRESSION: Presumed right lower lung pneumonia. Electronically Signed: Kaleb Santizo MD at 20:23 EST Tel , Service support , EKG Initial EKG: Attestation: I personally reviewed and interpreted this EKG as follows: Interpretation: Sinus Rhythm (100), No Acute Injury Pattern and RBBB Prior EKG tracings: available for review Prior: Unchanged (12/31/2020) Treatment and Re-Evaluation Vital Sign Attestation:: Vital signs were reviewed prior to admission. Patient blood pressure is improving after fluids. Remaining vital signs are stable. Discharge Plan Triage Chief Complaint: Shortness of Breath ED Provider: Christofer Navarrete Dx/Rx/DC Orders Clinical Impression: Pneumonia due to COVID-19 virus, Hypoxia Prescriptions: No Action prednisolone acetate 1 % drops,suspension ophthalmic (eye) RF: 0 dorzolamide 2 % drops 1 drp ophthalmic (eye) TID RF: 0 Eliquis 5 mg tablet 5 mg PO BID Qty: 180 RF: 3 atorvastatin 40 mg tablet 40 mg PO QHS Qty: 90 RF: 2 epinephrine 0.3 mg/0.3 mL auto-injector 0.3 mg IM PRN PRN (Reason: Anaphylaxis) RF: 0 levothyroxine 112 mcg tablet 112 mcg PO DAILY RF: 0 losartan 25 mg tablet 25 mg PO DAILY PRN (Reason: blood pressure) RF: 0 furosemide 40 mg tablet 40 mg PO DAILY RF: 0 metoprolol succinate 50 mg tablet extended release 24 hr 25 mg PO DAILY RF: 0 Primary Care Provider: Magdalena Landis NP Referrals: Magdalena Landis [employer], [employer] [Primary Care Provider] - Disposition Disposition: Acute Care Hospital [facility]
[2021-01-29 18:48] LABS: Basophil# 0.01 X10^3/uL; Basophil% 0.2 % (0-1); Hematocrit 48.3 % (40-54); Hemoglobin 15.6 g/dL (13.0-16.5); Lymphocyte % 13.1 % (19-41); Mean Corp Hgb Conc 32.3 g/dL (32-36); Mean Corpuscular Hgb 28.2 pg (27.0-32.0); Mean Corpuscular Volume 87.2 fL (80-94); Mean Platelet Vol. 10.9 fl (6.2-12.0); Monocyte# 0.64 X10^3/uL; Monocyte% 11.9 % (0-10); NRBC Flagged by Analyzer 0 % (0-5); Neutrophil % 74.6 % (47-70); Platelet Count 143 K/mm3 (150-450); RBC Distribution Width CV 13.3 % (11.6-14.6); RBC Distribution Width SD 43.1 fl (35.1-43.9); Red Blood Count 5.54 M/mm3 (4.6-6.2); White Blood Count 5.4 K/mm3 (4.4-11.0)
[2021-01-29 19:02] LABS: ALB/GLOB Ratio 0.6 RATIO (0.9-2.4); AST(SGOT) 57 U/L (15-37); Alanine Aminotransfer ALT/SGPT 35 U/L (16-61); Albumin, Serum 2.7 g/dL (3.2-5.0); Alkaline Phosphatase 70 U/L (45-117); Anion Gap 8 (5-15); BUN 57 mg/dL (7-18); BUN/Creat Ratio 28.6 RATIO (10-20); Calcium,Total 8.7 mg/dL (8.5-10.1); Chloride 103 mmol/L (98-107); Creatinine, Serum 1.99 mg/dL (0.70-1.30); EST Glomerular Filtration Rate 35 mL/min (>60); Est Glom Filt Rate - Afr Amer 43 mL/min (>60); Estimated Creatinine Clearance 34.65 ml/min; Globulin 4.7 g/dL (2.2-4.2); Glucose 101 mg/dL (74-106); Potassium 3.9 mmol/L (3.5-5.1); Protein, Total 7.4 g/dL (6.4-8.2); Sodium Level 138 mmol/L (136-145)
[2021-01-29 19:11] LABS: Lactic Acid 1.6 mmol/L (0.4-1.9)
[2021-01-29] MEDS: Acetaminophen 500 MG Tablet 1000 MG PO (20:40)
[2021-01-29 22:00] LABS: Bedside Glucose 101 mg/dL (70-110)
[2021-01-29] MEDS: dexAMETHasone 4 MG/ML Vial 6 MG IV (22:21)
[2021-01-29] MEDS: 0.9% Normal Saline 1,000 ML 1000 ML IV (22:22)
--- NOTE | 2021-01-29 22:29 | ED.RN ---
UPDATED DAUGHTER TONY CAPPS ON PT'S POSITIVE COVID RESULT, INFORMED OF NO VISITOR POLICY FOR COVID, UPDATED ON TEST RESULTS.
--- NOTE | 2021-01-29 23:24 | PCM.HP.STD ---
HPI - General HPI Narrative BLADIMIR MARTÍNEZ, is a 70 M with multiple comorbidities including COPD, former smoker quit 20 years ago came to ER with shortness of breath mainly on exertion, hypoxia pulse ox 94% on room air, altered mental status as per EMS and not eating drinking for about 1 week. Patient symptomatology onset is about 1 week. EMS found blood sugar 104. BP 115/74. Patient confusion improved outputting on oxygen by EMS. Patient also had low-grade temperature 100 ?F at home, cough clear/brown/greenish as per the daughter. Patient has generalized weakness, mild headache neck and back pain. Rapid Covid antigen positive. Patient is not Covid vaccinated. On 9 L of oxygen, blood pressure on lower side 89/65 patient had 1 L of normal saline bolus in ED and blood pressure improving. Patient's daughter was in ER but left before I saw the patient but ED physician talked to her. Patient is further admitted. Twelve-lead EKG shows normal sinus rhythm, chronic RBBB, QTC 510 ms. Chest x-ray shows right lower lobe pneumonia. Labs reviewed. 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 Thereafter he followed neurologist, Dr Larkin and vascular surgeon, Dr. Nathaniel Harmon for left ICA 50 to 69% stenosis and right vertebral artery stenosis about 80%. 30-day event monitor showed paroxysmal A. fib and patient on Eliquis 5 mg twice daily. Prior to that patient was on aspirin and Plavix. 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/21) HLD (hyperlipidemia) Hypothyroidism Mitral annular calcification Obstructive sleep apnea Right bundle branch block (RBBB) Right carpal tunnel syndrome Spinal stenosis Venous insufficiency (chronic) (peripheral) Home Medications epinephrine 0.3 mg IM PRN PRN 12/30/20 [History Last Taken Unknown] levothyroxine 112 mcg tablet 112 mcg PO DAILY 01/10/21 [History Last Taken Unknown] apixaban 5 mg tablet 5 mg PO BID #180 tab 01/18/21 [Rx Last Taken Unknown] atorvastatin 40 mg tablet 40 mg PO QHS #90 tab 01/18/21 [Rx Last Taken Unknown] dorzolamide 2 % eye drops 1 drp OPHTHALMIC (EYE) TID 01/18/21 [History Last Taken Unknown] losartan 25 mg tablet 25 mg PO DAILY PRN 01/18/21 [History Last Taken Unknown] prednisolone acetate 1 % eye drops,suspension drp OPHTHALMIC (EYE) 01/18/21 [History Last Taken Unknown] furosemide 40 mg PO DAILY 01/29/21 [History Last Taken Unknown] metoprolol succinate 25 mg PO DAILY 01/29/21 [History Last Taken Unknown] Allergy/AdvReac Type Severity Reaction Status Date / Time bee venom protein (honey bee) Allergy Anaphylaxis Verified 01/29/21 17:56 Penicillins Allergy Rash Verified 01/29/21 17:56 Surgical History History of arthroscopy of right knee History of cataract extraction History of colonoscopy History of elbow surgery History of left heart catheterization (~2009) History of tonsillectomy and adenoidectomy Social History Smoking Status: Never smoker Tobacco: How many years used: 30 Electronic Cigarette Use: not used how long ago did patient quit smoking: quit 24 years ago second hand exposure: No alcohol intake: never substance use type: does not use ROS ROS Narrative Constitutional: Reports fatigue and weakness HEENT: Left eye subconjunctival hemorrhage, around the limbus. Left eye blindness. Reports systems reviewed and no addt'l complaints, except as documented Respiratory/Chest: Denies chest pain. Dyspnea on exertion. Gastrointestinal: Denies coffee ground emesis, hematemesis or vomiting Genitourinary: Denies burning urination or new urinary tract symptoms Musculoskeletal: Reports joint pain and limited range of motion Neurologic: Denies seizure-like activity skin: No ulcer. No rash Endocrinology: Reports systems reviewed and no addt'l complaints, except as documented Hematologic/Lymphatic: Reports systems reviewed and no addt'l complaints, except as documented Rest 12 ROS are negative except as mentioned in HPI Vital Signs Vital Signs Vital Signs: 01/29/21 17:50 01/29/21 17:55 01/29/21 18:02 Temperature 98.6 F 98.6 F Temperature Source Oral Oral Pulse Rate 105 H 99 Respiratory Rate 28 H 30 H Respiratory Effort Short of Breath Respiratory Pattern Tachypnea Blood Pressure 114/65 114/65 Blood Pressure Mean 81 81 Pulse Ox 88 84 Oxygen Delivery Method Room Air Nasal Cannula Oxygen Flow Rate (L/min) 2 4 01/29/21 19:49 01/29/21 19:55 01/29/21 20:10 Temperature 97.8 F Temperature Source Temporal Pulse Rate 93 94 Respiratory Rate 23 H 26 H Respiratory Effort Respiratory Pattern Blood Pressure 99/66 98/64 Blood Pressure Mean 77 75 Pulse Ox 91 89 91 Oxygen Delivery Method Nasal Cannula Nasal Cannula High Flow Oxygen Flow Rate (L/min) 6 6 9 01/29/21 21:00 01/29/21 21:45 01/29/21 22:00 Temperature 97.8 F 98.2 F Temperature Source Oral Temporal Pulse Rate 94 82 Respiratory Rate 22 H 21 H Respiratory Effort Respiratory Pattern Blood Pressure 100/72 89/66 L 89/65 L Blood Pressure Mean 81 73 73 Pulse Ox 92 93 Oxygen Delivery Method Airvo Nasal Cannula Oxygen Flow Rate (L/min) 9 9 01/29/21 23:00 Temperature Temperature Source Pulse Rate 72 Respiratory Rate 19 H Respiratory Effort Respiratory Pattern Blood Pressure 99/64 Blood Pressure Mean 75 Pulse Ox 93 Oxygen Delivery Method Airvo Oxygen Flow Rate (L/min) 9 Weight Weight: 212 lb 4.882 oz Body Mass Index (BMI) 30.4 Physical Exam Narrative General: Alert, Oriented x3, Cooperative HEENT: Atraumatic, PERRLA, EOMI, Normocephalic Oral: No Gingival or Mucosal Lesions/ Ulcerations Neck: Supple, No JVD, Negative Carotid Bruits Lungs: Air entry severely diminished more on right side. Right coarse crepitation present. Severe hypoxia and tachypnea. Cardiovascular: Sinus rhythm, mild hypotension, Normal S1, Normal S2, No murmurs Abdomen: Bowel Sounds Present, Soft, Non Tender, Non-Distended : No renal angle tenderness. No suprapubic tenderness. Extremities: No edema, Capillary Refill Less than 3 Seconds Skin: No rashes, No breakdown Musculoskeletal: No Tenderness to Palpation of Joints or Extremities Neurological: Cranial nerves II-XII grossly intact, DTR 2+/4 and Symmetrical, Neuro grossly intact Psych/Mental Status: Normal Affect, Appropriate. Results Lab / Micro Data Result Diagrams: 01/29/21 17:27 01/29/21 17:27 Labs: Laboratory Results - last 24 hr 01/29/21 17:27: WBC 5.4, RBC 5.54, Hgb 15.6, Hct 48.3, MCV 87.2, MCH 28.2, MCHC 32.3, RDW Std Deviation 43.1, RDW Coeff of Kaylee 13.3, Plt Count 143 L, MPV 10.9, Immature Gran % (Auto) 0.200, Neut % (Auto) 74.6 H, Lymph % (Auto) 13.1 L, [place] % (Auto) 11.9 H, Eos % (Auto) 0.0, Baso % (Auto) 0.2, Absolute Neuts (auto) 4.0, Absolute Lymphs (auto) 0.70 L, Nucleated RBC % 0 01/29/21 17:27: Sodium 138, Potassium 3.9, Chloride 103, Carbon Dioxide 27.0, Anion Gap 8, BUN 57 H, Creatinine 1.99 H, Estim Creat Clear Calc 34.65, Est GFR (MDRD) Af Amer 43 L, Est GFR (MDRD) Non-Af 35 L, BUN/Creatinine Ratio 28.6 H, Glucose 101, Calcium 8.7, Total Bilirubin 0.70, AST 57 H, ALT 35, Alkaline Phosphatase 70, Total Protein 7.4, Albumin 2.7 L, Globulin 4.7 H, Albumin/Globulin Ratio 0.6 L 01/29/21 18:30: Lactic Acid 1.6 01/29/21 18:30: D-Dimer Quant (PE/DVT) 3.30 H* 01/29/21 21:56: POC Glucose 101 Micro: Microbiology 01/29/21 20:15 Nasal Secretion SARS-CoV-2 Antigen (Rapid) - Final SARS-CoV-2 (COVID 19) Radiology Impression Chest X-Ray 01/29/21 18:11 IMPRESSION: Presumed right lower lung pneumonia. Electronically Signed: Kaleb Santizo MD at 20:23 EST Tel , Service support , Assessment & Plan Assessment/Plan (1) Pneumonia due to COVID-19 virus: PLAN: 1. Acute hypoxic respiratory failure secondary to COVID-19 pneumonia with history of possible COPD and ex-smoker: Patient is being admitted in PCU. ABG ordered. Oxygen therapy, airVo, noninvasive pressure. Started on dexamethasone and remdesivir. Pneumonia work-up ordered. Inflammatory markers ordered. ID consult to consider baricitinib. 2. Acute kidney injury on CKD stage III, prerenal with signs of hypotension and hypovolemia: BUN/creatinine elevated, 57/1.99 IV fluid normal saline 1.5 L ordered in the ER. Thereafter Ringer lactate 100 mill per hour. Monitor kidney function electrolytes. 3 acute encephalopathy mostly metabolic from hypoxia: Resolved after putting on oxygen. Continue oxygen therapy 4. Recent left retinal arterial occlusion, persistent left eye blindness for which patient was admitted and discharged on 12/31/2020. Left carotid stenosis and right vertebral artery stenosis: Thereafter patient was found paroxysmal A. fib on Eliquis. Patient is following neurologist Dr. Larkin, vascular surgeon Dr. Nathaniel Harmon and nursing unit coordinator Dr. Stephen. Currently patient in sinus rhythm. Continue Eliquis, Metoprolol succinate and high intensity statin. Home eyedrops continued. Patient had left recent cataract surgery therefore corneal limbus subconjunctival hemorrhages. 5. Hypertension and dyslipidemia currently patient blood pressure is on lower side. Home medication reconciliation done. Advanced directive: Patient does have living will or advanced directive. His eldest daughter is power of contract attorney for health. After discussion of benefits/risks procedures involved with full code, DNR CC arrest and DNR CC, the patient opted for DNR-CC Arrest with no intubation Patient does not want artificial life support including intubation, tube feed, ventilator and/chest compression, central venous catheter, vasopressor and DC shock if needed Total time spent in [id number] encounter in discussion of advanced directive 16 minutes. Charges/Coding Visit Charges Inpatient E&M: 64919 Init Hosp L3 Procedures Hospitalists Procedures: 31684 Advncd Care Plan 30 Min
[2021-01-30] VITALS (22 sets, daily range): BP systolic 86–111; BP diastolic 59–77; PULSE 50–81; RESP 14–23; TEMP 36.1–37.2; O2SAT 90–95; BMI 29.2
[2021-01-30 00:01] LABS: Magnesium 2.4 mg/dL (1.6-2.6)
[2021-01-30 00:47] LABS: CPK Total, Creatine Kinase 390 U/L (39-308); LDH 433 U/L (87-241)
[2021-01-30] MEDS: Lactated Ringers 1,000 ML 100 ML IV (01:01)
[2021-01-30 01:21] LABS: Fibrinogen 562 mg/dl (203-444)
[2021-01-30] MEDS: APIXABAN 5 MG TABLET PO ×3 (02:14→22:57)
[2021-01-30 02:26] LABS: Allen Test Positive; Base Excess -4 mmol/L (-2 to +2); Bicarbonate 21.9 mmol/L (22-26); Blood Gas Specimen Type ART; O2 Delivery Device Cannula; PO2 63 mmHG (75-100); SITE L Radial; SO2 91 % (95-99); Total Carbon Dioxide 23 mmol/L; pCO2 38.5 mmHg (35-45); pH 7.36 (7.35-7.45)
[2021-01-30] MEDS: Dorzolamide 2% 10ml Bottle 1 DRP OPHTHALMIC ×3 (06:57→22:59)
[2021-01-30] MEDS: 0.9% Saline Lock 10 ML Syringe IV ×2 (07:01→23:01)
[2021-01-30 07:11] LABS: Absolute Lymphocyte Count 0.36 X10^3/uL (0.83-4.51); Absolute Neutrophil Count 3.4 X10^3/uL (2.0-7.7); Basophil# 0.01 X10^3/uL; Basophil% 0.2 % (0-1); Hematocrit 44.8 % (40-54); Hemoglobin 14.6 g/dL (13.0-16.5); Lymphocyte # 0.36 X10^3/ul (0.83-4.51); Lymphocyte % 8.8 % (19-41); Mean Corp Hgb Conc 32.6 g/dL (32-36); Mean Corpuscular Hgb 29.1 pg (27.0-32.0); Mean Corpuscular Volume 89.4 fL (80-94); Mean Platelet Vol. 10.7 fl (6.2-12.0); Monocyte# 0.33 X10^3/uL; Monocyte% 8.1 % (0-10); NRBC Flagged by Analyzer 0 % (0-5); Neutrophil # 3.36 X10^3/uL (2.7-7.7); Neutrophil % 82.4 % (47-70); POSITIVE DIFFERENTIAL YES; Platelet Count 120 K/mm3 (150-450); RBC Distribution Width CV 13.7 % (11.6-14.6); Red Blood Count 5.01 M/mm3 (4.6-6.2); White Blood Count 4.1 K/mm3 (4.4-11.0)
[2021-01-30 07:18] LABS: Differential Indicated SCAN CRITERIA MET
[2021-01-30 07:51] LABS: ALB/GLOB Ratio 0.5 RATIO (0.9-2.4); AST(SGOT) 52 U/L (15-37); Alanine Aminotransfer ALT/SGPT 33 U/L (16-61); Albumin, Serum 2.2 g/dL (3.2-5.0); Alkaline Phosphatase 60 U/L (45-117); Anion Gap 8 (5-15); BUN 61 mg/dL (7-18); BUN/Creat Ratio 29.6 RATIO (10-20); Calcium,Total 8.1 mg/dL (8.5-10.1); Chloride 106 mmol/L (98-107); Creatinine, Serum 2.06 mg/dL (0.70-1.30); EST Glomerular Filtration Rate 34 mL/min (>60); Est Glom Filt Rate - Afr Amer 41 mL/min (>60); Estimated Creatinine Clearance 33.47 ml/min; Globulin 4.4 g/dL (2.2-4.2); Glucose 160 mg/dL (74-106); Phosphorus 4.5 mg/dL (2.5-4.9); Potassium 4.2 mmol/L (3.5-5.1); Protein, Total 6.6 g/dL (6.4-8.2); Sodium Level 139 mmol/L (136-145)
[2021-01-30] MEDS: Furosemide 40 MG Tablet PO (10:12)
[2021-01-30] MEDS: Levothyroxine 112 MCG Tablet PO (10:12)
[2021-01-30] MEDS: dexAMETHasone 4 MG Tablet 6 MG PO (10:12)
[2021-01-30] MEDS: Metoprolol(XL)Succ 25 MG Tablet PO (10:13)
[2021-01-30] MEDS: Albuterol 2.5 MG/3 ML VIAL.NEB. INHALATION (10:15)
--- NOTE | 2021-01-30 11:41 | CPS ---
CALLED TO PT'S ROOM FOR DECREASED SATURATION. UPON ENTERING PT'S ROOM SATURATION WAS 90-93% ON 15 LPM. PT SHOWED NO SIGNS OF DISTRESS. DR CRAMER ENTERED ROOM PRIOR TO THERAPIST LEAVING AND WAS INFORMED OF THE ABOVE. DR CRAMER AND THIS THERAPIST AGREED TO HOLD OFF AND JUST HAVE AIRVO ON STANDBY AT THIS TIME. PT'S NURSE WAS ALSO UPDATED.
[2021-01-30] MEDS: Acetaminophen 325 MG Tablet 650 MG PO (12:32)
[2021-01-30 13:16] LABS: Pathologist Review Reviewed
--- NOTE | 2021-01-30 14:18 | CASEMGMT ---
DAVON SIDHU assessment: Initial transition planning/care coordination assessment. RN NAHUM introduced self and role at [facility] [place], pt voices understanding and consents to assessment. Pt is on 15L nc and speaks in full sentences without distress. Pt is A/Ox4 and answers all questions appropriately. Care providers, pharmacy, and demographics verified. Presentation: Pt has not been eating/drinking x1 week, c/o increased weakness and SOB, pt c/o cough Admitting dx: COVID pna PCP: Boby Specialists: Trae, neuro; Faustino, surgeon; Hailee, cardio Preferred Pharmacy: [facility] Insurance: [employer] Prescription Benefit: [employer] Living Will/HPOA: Pt states has LW/HPOA and is aware that they are not on file at [facility] [place]. Pt states his daughter, Kendra Nielsen, is HPOA. LNOK: Kendra Nielsen, daughter; Ani Yan, daughter Living Arrangements: Pt states lives alone in 1 story home with 4 steps in and states no concerns at home. Pt states is independent with ADL's. Transportation: Pt states drives self and states no transportation concerns. DME/HHC: Pt states has a cane and walker at home. Pt states no need for any further DME and states no preference for DME company, if qualifies for home oxygen at discharge. Pt states no hx of HHC or SNF. Pt states no concerns with going home at time of discharge. Pt states is currently on leave of absence from work d/t recent eye problem. Pt states does not smoke cigarettes or drink ETOH. Pt voices no further concerns/needs. CM to follow for any further discharge planning/needs. Advised pt to ask for CM if any further questions/concerns/needs arise, voices understanding. Pt Goal: Home Plan: Home,pending therapy recommendations, home oxygen testing. [place] DAVON SIDHU
--- NOTE | 2021-01-30 14:38 | CON.PCM.ID_ITS ---
Assessment & Plan Assessment/Plan (1) Pneumonia due to COVID-19 virus: PLAN: Sx started 01/21. Unvaccinated. Isolate for 20 days until 02/09. Recommend vaccine once out of isolation. On dex, remdesivir. Reviewed EUA and risks/benefits, we agree to start baricitinib. CRP 100. Will follow, thank you (2) Hypoxia: HPI Consult Data Date of Consult: 01/30/21 HPI Narrative HPI Narrative: BLADIMIR MARTÍNEZ, is a 70 M who presented 01/29 with sx starting 01/21, c/o headache, cough, diarrhea, aches, fatigue, yellow sputum, dyspnea. Some change in taste/smell. Unvaccinated. Lives alone, has been around daughter, asymptomatic, has not been tested. Admitted here on dex and remdesivir. Now on 15L. Full ROS performed and neg except as noted above. 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) HLD (hyperlipidemia) Hypothyroidism Mitral annular calcification Obstructive sleep apnea Right bundle branch block (RBBB) Right carpal tunnel syndrome Spinal stenosis Venous insufficiency (chronic) (peripheral) Home Medications epinephrine 0.3 mg IM PRN PRN 12/30/20 [History Last Taken Unknown] levothyroxine 112 mcg tablet 112 mcg PO DAILY 01/10/21 [History Last Taken Unknown] apixaban 5 mg tablet 5 mg PO BID #180 tab 01/18/21 [Rx Last Taken Unknown] atorvastatin 40 mg tablet 40 mg PO QHS #90 tab 01/18/21 [Rx Last Taken Unknown] dorzolamide 2 % eye drops 1 drp OPHTHALMIC (EYE) TID 01/18/21 [History Last Taken Unknown] losartan 25 mg tablet 25 mg PO DAILY PRN 01/18/21 [History Last Taken Unknown] prednisolone acetate 1 % eye drops,suspension drp OPHTHALMIC (EYE) 01/18/21 [History Last Taken Unknown] furosemide 40 mg PO DAILY 01/29/21 [History Last Taken Unknown] metoprolol succinate 25 mg PO DAILY 01/29/21 [History Last Taken Unknown] Allergy/AdvReac Type Severity Reaction Status Date / Time bee venom protein (honey bee) Allergy Anaphylaxis Verified 01/29/21 17:56 Penicillins Allergy Rash Verified 01/29/21 17:56 Surgical History History of arthroscopy of right knee History of cataract extraction History of colonoscopy History of elbow surgery History of left heart catheterization (~2009) History of tonsillectomy and adenoidectomy Social History Smoking Status: Former smoker Tobacco: How many years used: 30 Electronic Cigarette Use: not used how long ago did patient quit smoking: quit 24 years ago second hand exposure: No alcohol intake: never substance use type: does not use Physical Exam Const alert and oriented x3 General Appearance: cooperative Exam Limitations: no limitations HEENT normocephalic and head/scalp atraumatic Eyes PERRL and EOMs intact bilaterally Neck supple and No nodes Resp Auscultation: diminished lung sounds Cardio regular rate and regular rhythm GI normal to inspection, nondistended, normoactive bowel sounds Extremity no clubbing, cyanosis or edema Skin no rashes or lesions noted Neuro CN's II-XII intact bilaterally Medical Records Data Medical Nutrition Assessment Dietitian: Malnutrition Criteria Met Start: 01/30/21 12:20 Freq: Status: Active Protocol: Document 01/30/21 12:22 (Rec: 01/30/21 12:22 [id number]) Nutrition Malnutrition Evidence of Malnutrition Exists Yes Malnutrition (severe): Acute Illness/Injury Evidenced By Suboptimal Energy Intake ( Severe),Weight Loss (Severe) Clinical Problem Acute Disease or Injury Related Malnutrition Etiology severe, acute malnutrition r/t inadequate energy intake w/ acute COVID illness Signs/Symptoms as evidenced by reported decreased PO intake estimated to be meeting <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 Lab / Micro Data Result Diagrams: 01/30/21 06:15 01/30/21 06:15 Labs: Laboratory Results - last 24 hr 01/29/21 17:27: WBC 5.4, RBC 5.54, Hgb 15.6, Hct 48.3, MCV 87.2, MCH 28.2, MCHC 32.3, RDW Std Deviation 43.1, RDW Coeff of Kaylee 13.3, Plt Count 143 L, MPV 10.9, Immature Gran % (Auto) 0.200, Neut % (Auto) 74.6 H, Lymph % (Auto) 13.1 L, [place] % (Auto) 11.9 H, Eos % (Auto) 0.0, Baso % (Auto) 0.2, Absolute Neuts (auto) 4.0, Absolute Lymphs (auto) 0.70 L, Nucleated RBC % 0 01/29/21 17:27: Sodium 138, Potassium 3.9, Chloride 103, Carbon Dioxide 27.0, Anion Gap 8, BUN 57 H, Creatinine 1.99 H, Estim Creat Clear Calc 34.65, Est GFR (MDRD) Af Amer 43 L, Est GFR (MDRD) Non-Af 35 L, BUN/Creatinine Ratio 28.6 H, Glucose 101, Calcium 8.7, Total Bilirubin 0.70, AST 57 H, ALT 35, Alkaline Phosphatase 70, Total Protein 7.4, Albumin 2.7 L, Globulin 4.7 H, Albumin/Globu [place] Ratio 0.6 L 01/29/21 17:27: Magnesium 2.4 01/29/21 17:27: B-Natriuretic Peptide 55.0 01/29/21 18:30: Lactic Acid 1.6 01/29/21 18:30: D-Dimer Quant (PE/DVT) 3.30 H* 01/29/21 18:30: Fibrinogen 562 H 01/29/21 18:30: Lactate Dehydrogenase 433 H, Total Creatine Kinase 390 H, C- React Prot Ext Range 98.70 H 01/29/21 21:56: POC Glucose 101 01/30/21 06:15: Procalcitonin 0.40 H 01/30/21 06:15: WBC 4.1 L, RBC 5.01, Hgb 14.6, Hct 44.8, MCV 89.4, MCH 29.1, MCHC 32.6, RDW Std Deviation 45.0 H, RDW Coeff of Kaylee 13.7, Plt Count 120 L, MPV 10.7, Immature Gran % (Auto) 0.500, Neut % (Auto) 82.4 H, Lymph % (Auto) 8.8 L, [place] % (Auto) 8.1, Eos % (Auto) 0.0, Baso % (Auto) 0.2, Absolute Neuts (auto) 3.4, Absolute Lymphs (auto) 0.36 L, Nucleated RBC % 0, Diff Path Review Reviewed 01/30/21 06:15: Sodium 139, Potassium 4.2, Chloride 106, Carbon Dioxide 25.0, Anion Gap 8, BUN 61 H, Creatinine 2.06 H, Estim Creat Clear Calc 33.47, Est GFR (MDRD) Af Amer 41 L, Est GFR (MDRD) Non-Af 34 L, BUN/Creatinine Ratio 29.6 H, Glucose 160 H, Calcium 8.1 L, Phosphorus 4.5, Total Bilirubin 0.60, AST 52 H, ALT 33, Alkaline Phosphatase 60, Total Protein 6.6, Albumin 2.2 L, Globulin 4.4 H, Albumin/Globulin Ratio 0.5 L Micro: Microbiology 01/30/21 02:00 Mucosa - Nasopharyngeal Respiratory Panel (PCR) - Final 01/29/21 20:15 Nasal Secretion SARS-CoV-2 Antigen (Rapid) - Final SARS-CoV-2 (COVID 19) ABG Data ABG results: ABG 01/30/21 02:19 Specimen Type ART Sample Site L Radial pH 7.36 Bicarbonate Actual 21.9 L Total CO2 23 Base Excess -4 L O2 Saturation 91 L ABG pCO2 38.5 ABG pO2 63 L Pranay Test Positive O2 Delivery Device Cannula Liter Flow 9.0 Radiology Impression Chest X-Ray 01/29/21 18:11 IMPRESSION: Presumed right lower lung pneumonia. Electronically Signed: Kaleb Santizo MD at 20:23 EST Tel , Service support ,
--- NOTE | 2021-01-30 15:39 | PN.HOSP_ITS ---
Subjective Subjective Increased FiO2 requirements. Asks if he can get the vaccine. Objective Data Objective Data Vital Signs: Vital Signs Temp Pulse Resp BP Pulse Ox 36.1 C L 67 18 96/63 94 01/30/21 15:03 01/30/21 15:03 01/30/21 15:03 01/30/21 15:03 01/30/21 15:03 Oxygen Flow Rate (L/min) 15 Oxygen Delivery Method Nasal Cannula Weight: 92.3 kg Body Mass Index (BMI) 29.2 Intake & Output: Intake and Output for Last 24 Hours 01/28/21 01/29/21 01/30/21 23:59 23:59 23:59 Intake Total 1500 / 1500 1733.33 / 1733.33 Output Total 500 / 500 Balance 1500 / 1500 1233.33 / 1233.33 Medical Nutrition Assessment Dietitian: Malnutrition Criteria Met Start: 01/30/21 12:20 Freq: Status: Active Protocol: Document 01/30/21 12:22 (Rec: 01/30/21 12:22 [id number]) Nutrition Malnutrition Evidence of Malnutrition Exists Yes Malnutrition (severe): Acute Illness/Injury Evidenced By Suboptimal Energy Intake ( Severe),Weight Loss (Severe) Clinical Problem Acute Disease or Injury Related Malnutrition Etiology severe, acute malnutrition r/t inadequate energy intake w/ acute COVID illness Signs/Symptoms as evidenced by reported decreased PO intake estimated to be meeting <50% of 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 Lab / Micro Data Result Diagrams: 01/30/21 06:15 01/30/21 06:15 Labs: Laboratory Results - last 24 hr 01/29/21 17:27: WBC 5.4, RBC 5.54, Hgb 15.6, Hct 48.3, MCV 87.2, MCH 28.2, MCHC 32.3, RDW Std Deviation 43.1, RDW Coeff of Kaylee 13.3, Plt Count 143 L, MPV 10.9, Immature Gran % (Auto) 0.200, Neut % (Auto) 74.6 H, Lymph % (Auto) 13.1 L, [place] % (Auto) 11.9 H, Eos % (Auto) 0.0, Baso % (Auto) 0.2, Absolute Neuts (auto) 4.0, Absolute Lymphs (auto) 0.70 L, Nucleated RBC % 0 01/29/21 17:27: Sodium 138, Potassium 3.9, Chloride 103, Carbon Dioxide 27.0, Anion Gap 8, BUN 57 H, Creatinine 1.99 H, Estim Creat Clear Calc 34.65, Est GFR (MDRD) Af Amer 43 L, Est GFR (MDRD) Non-Af 35 L, BUN/Creatinine Ratio 28.6 H, Glucose 101, Calcium 8.7, Total Bilirubin 0.70, AST 57 H, ALT 35, Alkaline Phosphatase 70, Total Protein 7.4, Albumin 2.7 L, Globulin 4.7 H, Albumin/Globulin Ratio 0.6 L 01/29/21 17:27: Magnesium 2.4 01/29/21 17:27: B-Natriuretic Peptide 55.0 01/29/21 18:30: Lactic Acid 1.6 01/29/21 18:30: D-Dimer Quant (PE/DVT) 3.30 H* 01/29/21 18:30: Fibrinogen 562 H 01/29/21 18:30: Lactate Dehydrogenase 433 H, Total Creatine Kinase 390 H, C- React Prot Ext Range 98.70 H 01/29/21 21:56: POC Glucose 101 01/30/21 06:15: Procalcitonin 0.40 H 01/30/21 06:15: WBC 4.1 L, RBC 5.01, Hgb 14.6, Hct 44.8, MCV 89.4, MCH 29.1, MCHC 32.6, RDW Std Deviation 45.0 H, RDW Coeff of Kaylee 13.7, Plt Count 120 L, MPV 10.7, Immature Gran % (Auto) 0.500, Neut % (Auto) 82.4 H, Lymph % (Auto) 8.8 L, [place] % (Auto) 8.1, Eos % (Auto) 0.0, Baso % (Auto) 0.2, Absolute Neuts (auto) 3.4, Absolute Lymphs (auto) 0.36 L, Nucleated RBC % 0, Diff Path Review Reviewed 01/30/21 06:15: Sodium 139, Potassium 4.2, Chloride 106, Carbon Dioxide 25.0, Anion Gap 8, BUN 61 H, Creatinine 2.06 H, Estim Creat Clear Calc 33.47, Est GFR (MDRD) Af Amer 41 L, Est GFR (MDRD) Non-Af 34 L, BUN/Creatinine Ratio 29.6 H, Glucose 160 H, Calcium 8.1 L, Phosphorus 4.5, Total Bilirubin 0.60, AST 52 H, ALT 33, Alkaline Phosphatase 60, Total Protein 6.6, Albumin 2.2 L, Globulin 4.4 H, Albumin/Globulin Ratio 0.5 L Micro: Microbiology 01/30/21 00:19 Urine, Clean Catch Streptococcus pneumoniae Antigen (M - Final 01/30/21 00:19 Urine, Clean Catch Legionella Antigen - Final 01/30/21 02:00 Mucosa - Nasopharyngeal Respiratory Panel (PCR) - Final 01/29/21 20:15 Nasal Secretion SARS-CoV-2 Antigen (Rapid) - Final SARS-CoV-2 (COVID 19) ABG Data ABG results: ABG 01/30/21 02:19 Specimen Type ART Sample Site L Radial pH 7.36 Bicarbonate Actual 21.9 L Total CO2 23 Base Excess -4 L O2 Saturation 91 L ABG pCO2 38.5 ABG pO2 63 L Pranay Test Positive O2 Delivery Device Cannula Liter Flow 9.0 Radiography Diagnostic Testing: Radiology Impression Chest X-Ray 01/29/21 18:11 IMPRESSION: Presumed right lower lung pneumonia. Electronically Signed: Kaleb Santizo MD at 20:23 EST Tel , Service support , Physical Exam Const alert Constitutional Narrative: no respiratory distress. no conversational dyspnea. HEENT head/scalp atraumatic Head and Scalp: normocephalic Resp normal respiratory effort and no retractions Resp Narrative: coarse breath sounds. Cardio regular rate, regular rhythm, S1 normal heart sound and S2 normal heart sound GI normal to inspection, nondistended, normoactive bowel sounds, soft to palpation, non-tender and non-distended Assessment & Plan Assessment/Plan (1) Pneumonia due to COVID-19 virus: (2) Acute respiratory failure with hypoxia: PLAN: 1. acute hypoxic respiratory failure 2/2 COVID 19 increased FiO2 requirements. on 15l, may need Airvo verified code status--DNRCCA, no intubation. I explained to urgency for intubation at this time 2. Acute COVID 19 pneumonia unvaccinated onset 01/21, quarantine through 02/09 on dex, rem-d, baricitinib 3. metabolic encephalopathy resolved 2/2 hypoxia and COVID 19, no additional work up at this time 4. Recent left retinal arterial occlusion may be due pafib 5. Pafib on apixaban metoprolol succinate 6. VTE prophylaxis: not indicated. 7. Code status: DNR CCA, no intubation. Charges/Coding Visit Charges Inpatient E&M: 49171 Subs Hosp L2
[2021-01-30] MEDS: Atorvastatin Calcium 40 MG Tablet PO (22:57)
[2021-01-31] VITALS (18 sets, daily range): BP systolic 99–127; BP diastolic 67–87; PULSE 58–91; RESP 14–28; TEMP 35–36.3; O2SAT 83–95
[2021-01-31] MEDS: Acetaminophen 325 MG Tablet 650 MG PO ×3 (02:55→23:18)
[2021-01-31] MEDS: Dorzolamide 2% 10ml Bottle 1 DRP OPHTHALMIC ×3 (06:39→23:06)
[2021-01-31 07:12] LABS: Absolute Lymphocyte Count 0.56 X10^3/uL (0.83-4.51); Basophil# 0.01 X10^3/uL; Basophil% 0.1 % (0-1); Hemoglobin 15.1 g/dL (13.0-16.5); Lymphocyte # 0.56 X10^3/ul (0.83-4.51); Lymphocyte % 7.9 % (19-41); Mean Corp Hgb Conc 32.1 g/dL (32-36); Mean Corpuscular Hgb 28.7 pg (27.0-32.0); Mean Corpuscular Volume 89.4 fL (80-94); Monocyte# 0.44 X10^3/uL; Monocyte% 6.2 % (0-10); NRBC Flagged by Analyzer 0 % (0-5); Neutrophil # 5.99 X10^3/uL (2.7-7.7); POSITIVE DIFFERENTIAL YES; Platelet Count 160 K/mm3 (150-450); RBC Distribution Width CV 13.9 % (11.6-14.6); RBC Distribution Width SD 45.7 fl (35.1-43.9); Red Blood Count 5.26 M/mm3 (4.6-6.2); White Blood Count 7.1 K/mm3 (4.4-11.0)
[2021-01-31 07:15] LABS: Differential Indicated SCAN CRITERIA MET
--- NOTE | 2021-01-31 07:31 | PCS.PANDOC ---
PANDEMIC DOCUMENTATION INITIATED: Date: 10/10/2020 Time: 190
[2021-01-31 07:39] LABS: ALB/GLOB Ratio 0.5 RATIO (0.9-2.4); AST(SGOT) 42 U/L (15-37); Alanine Aminotransfer ALT/SGPT 31 U/L (16-61); Albumin, Serum 2.4 g/dL (3.2-5.0); Alkaline Phosphatase 66 U/L (45-117); Anion Gap 8 (5-15); BUN 71 mg/dL (7-18); BUN/Creat Ratio 35.7 RATIO (10-20); Calcium,Total 8.4 mg/dL (8.5-10.1); Chloride 109 mmol/L (98-107); Creatinine, Serum 1.99 mg/dL (0.70-1.30); EST Glomerular Filtration Rate 35 mL/min (>60); Est Glom Filt Rate - Afr Amer 43 mL/min (>60); Estimated Creatinine Clearance 34.65 ml/min; Globulin 4.5 g/dL (2.2-4.2); Glucose 141 mg/dL (74-106); Potassium 3.8 mmol/L (3.5-5.1); Protein, Total 6.9 g/dL (6.4-8.2); Sodium Level 142 mmol/L (136-145)
[2021-01-31] MEDS: prednisoLONE eye drops (5 mL) 1 DROP OPTH.BTL 1 DRP LEFT EYE ×4 (09:25→23:13)
[2021-01-31] MEDS: dexAMETHasone 4 MG Tablet 6 MG PO (09:25)
[2021-01-31] MEDS: Levothyroxine 112 MCG Tablet PO (09:25)
[2021-01-31] MEDS: Furosemide 40 MG Tablet PO (09:26)
[2021-01-31] MEDS: APIXABAN 5 MG TABLET PO ×2 (09:26→23:03)
[2021-01-31] MEDS: Metoprolol(XL)Succ 25 MG Tablet PO (09:26)
--- NOTE | 2021-01-31 15:19 | PCM.PN.HOSP ---
Subjective Subjective Increased oxygen requirements. Was not tolerating BiPAP and put on air Vo. Pulse ox was still dropping into the 80s percent despite high percent FiO2. Objective Data Objective Data Vital Signs: Vital Signs Temp Pulse Resp BP Pulse Ox 35.3 C L 59 L 22 H 104/75 93 01/31/21 12:00 01/31/21 15:00 01/31/21 13:27 01/31/21 12:00 01/31/21 13:27 Oxygen Flow Rate (L/min) 60 Oxygen Delivery Method Bi-pap Weight: 92.3 kg Body Mass Index (BMI) 29.2 Intake & Output: Intake and Output for Last 24 Hours 01/29/21 01/30/21 01/31/21 23:59 23:59 23:59 Intake Total 1500 / 1500 2108.33 / 2108.33 540 / 540 Output Total 1300 / 1300 350 / 350 Balance 1500 / 1500 808.33 / 808.33 190 / 190 Medical Nutrition Assessment Dietitian: Malnutrition Criteria Met Start: 01/30/21 12:20 Freq: Status: Active Protocol: Document 01/30/21 12:22 AG (Rec: 01/30/21 12:22 [id number]) Nutrition Malnutrition Evidence of Malnutrition Exists Yes Malnutrition (severe): Acute Illness/Injury Evidenced By Suboptimal Energy Intake ( Severe),Weight Loss (Severe) Clinical Problem Acute Disease or Injury Related Malnutrition Etiology severe, acute malnutrition r/t inadequate energy intake w/ acute COVID illness Signs/Symptoms as evidenced by reported decreased PO intake estimated to be meeting <50% of 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 Lab / Micro Data Result Diagrams: 01/31/21 06:40 01/31/21 06:40 Labs: Laboratory Results - last 24 hr 01/31/21 06:40: WBC 7.1, RBC 5.26, Hgb 15.1, Hct 47.0, MCV 89.4, MCH 28.7, MCHC 32.1, RDW Std Deviation 45.7 H, RDW Coeff of Kaylee 13.9, Plt Count 160, MPV 11.0, Immature Gran % (Auto) 0.800, Neut % (Auto) 85.0 H, Lymph % (Auto) 7.9 L, [place] % (Auto) 6.2, Eos % (Auto) 0.0, Baso % (Auto) 0.1, Absolute Neuts (auto) 6.0, Absolute Lymphs (auto) 0.56 L, Nucleated RBC % 0, Differential Comment COMMENT 01/31/21 06:40: Sodium 142, Potassium 3.8, Chloride 109 H, Carbon Dioxide 25.0, Anion Gap 8, BUN 71 H, Creatinine 1.99 H, Estim Creat Clear Calc 34.65, Est GFR (MDRD) Af Amer 43 L, Est GFR (MDRD) Non-Af 35 L, BUN/Creatinine Ratio 35.7 H, Glucose 141 H, Calcium 8.4 L, Total Bilirubin 0.40, AST 42 H, ALT 31, Alkaline Phosphatase 66, Total Protein 6.9, Albumin 2.4 L, Globulin 4.5 H, Albumin/Globulin Ratio 0.5 L Micro: Microbiology 01/30/21 10:45 Sputum, Expectorated/Coughed Gram Stain - Final 01/30/21 10:45 Sputum, Expectorated/Coughed Respiratory Culture - Preliminary Appears to be normal respiratory ralph. Further studies to follow. 01/30/21 00:19 Urine, Clean Catch Streptococcus pneumoniae Antigen (M - Final 01/30/21 00:19 Urine, Clean Catch Legionella Antigen - Final 01/30/21 02:00 Mucosa - Nasopharyngeal Respiratory Panel (PCR) - Final 01/29/21 20:15 Nasal Secretion SARS-CoV-2 Antigen (Rapid) - Final SARS-CoV-2 (COVID 19) Physical Exam Const alert and no apparent distress HEENT head/scalp atraumatic, moist oral mucous membranes and oropharynx normal Head and Scalp: normocephalic Resp normal respiratory effort and no retractions Resp Narrative: coarse breath sounds bilaterally. Cardio regular rate, regular rhythm, S1 normal heart sound and S2 normal heart sound GI normal to inspection, nondistended, normoactive bowel sounds, soft to palpation, non-tender and non-distended Assessment & Plan Assessment/Plan (1) Pneumonia due to COVID-19 virus: (2) Acute respiratory failure with hypoxia: PLAN: 1. acute hypoxic respiratory failure continues to worsen 2/2 COVID 19 increased FiO2 requirements. now on BiPAP verified code status--DNRCCA, no intubation. I explained to urgency for intubation at this time resp panel, strep Ag, leg Ag negative, SCx so far negative. 2. Acute COVID 19 pneumonia unvaccinated onset 01/21, quarantine through 02/09 on dex, rem-d, baricitinib 3. metabolic encephalopathy resolved 2/2 hypoxia and COVID 19, no additional work up at this time 4. Recent left retinal arterial occlusion may be due pafib 5. Pafib on apixaban metoprolol succinate 6. VTE prophylaxis: not indicated. Advance care planning: Spent additional 20 minutes discussed with the patient about CODE STATUS. I explained to him that given his current status and the fact that he is worsening that if he does not tolerate BiPAP the next that would be intubation. But he does not want to be intubated. Told him that if he does want to be debated that he would likely . Said he want talk to his family. Spoke with his family and then got back to us. Went back to his room and verify the patient wants to be full code now. I strongly encouraged patient to use BiPAP in case his respiratory status got worse. Charges/Coding Visit Charges Inpatient E&M: 74837 Subs Hosp L2 Procedures Hospitalists Procedures: 79860 Advncd Care Plan 30 Min
[2021-01-31] MEDS: Furosemide 40 MG/4 ML Vial IV (15:51)
[2021-01-31] MEDS: 0.9% Saline Lock 10 ML Syringe IV ×2 (15:51→23:07)
[2021-01-31] MEDS: Atorvastatin Calcium 40 MG Tablet PO (23:03)
[2021-02-01] VITALS (35 sets, daily range): BP systolic 91–133; BP diastolic 63–106; PULSE 48–82; RESP 14–26; TEMP 36.3–36.7; O2SAT 84–100
[2021-02-01] MEDS: Dorzolamide 2% 10ml Bottle 1 DRP OPHTHALMIC ×3 (05:47→21:22)
[2021-02-01 06:57] LABS: Absolute Lymphocyte Count 0.52 X10^3/uL (0.83-4.51); Absolute Neutrophil Count 8.7 X10^3/uL (2.0-7.7); Basophil# 0.02 X10^3/uL; Basophil% 0.2 % (0-1); Hematocrit 48.1 % (40-54); Hemoglobin 15.4 g/dL (13.0-16.5); Lymphocyte # 0.52 X10^3/ul (0.83-4.51); Lymphocyte % 5.3 % (19-41); Mean Corpuscular Hgb 28.3 pg (27.0-32.0); Mean Corpuscular Volume 88.3 fL (80-94); Mean Platelet Vol. 10.8 fl (6.2-12.0); Monocyte# 0.49 X10^3/uL; NRBC Flagged by Analyzer 0 % (0-5); Neutrophil # 8.69 X10^3/uL (2.7-7.7); Neutrophil % 88.9 % (47-70); POSITIVE DIFFERENTIAL YES; Platelet Count 179 K/mm3 (150-450); RBC Distribution Width CV 14.1 % (11.6-14.6); RBC Distribution Width SD 45.4 fl (35.1-43.9); Red Blood Count 5.45 M/mm3 (4.6-6.2); White Blood Count 9.8 K/mm3 (4.4-11.0)
[2021-02-01 07:06] LABS: Differential Indicated SCAN CRITERIA MET
[2021-02-01 07:35] LABS: ALB/GLOB Ratio 0.5 RATIO (0.9-2.4); AST(SGOT) 43 U/L (15-37); Alanine Aminotransfer ALT/SGPT 35 U/L (16-61); Albumin, Serum 2.4 g/dL (3.2-5.0); Alkaline Phosphatase 73 U/L (45-117); Anion Gap 10 (5-15); BUN 78 mg/dL (7-18); Calcium,Total 8.7 mg/dL (8.5-10.1); Chloride 106 mmol/L (98-107); Globulin 4.6 g/dL (2.2-4.2); Glucose 141 mg/dL (74-106); Potassium 3.9 mmol/L (3.5-5.1); Sodium Level 143 mmol/L (136-145)
[2021-02-01 08:33] LABS: Differential Comment SCANNED
[2021-02-01] MEDS: dexAMETHasone 4 MG/ML Vial 6 MG IV (10:06)
[2021-02-01] MEDS: 0.9% Saline Lock 10 ML Syringe IV (10:08)
[2021-02-01] MEDS: APIXABAN 5 MG TABLET PO ×2 (10:08→21:23)
[2021-02-01] MEDS: Levothyroxine 112 MCG Tablet PO (10:09)
[2021-02-01] MEDS: Metoprolol(XL)Succ 25 MG Tablet PO (10:09)
[2021-02-01] MEDS: Senna/Docusate Sodium 1 Tablet 2 TABLET PO ×2 (10:16→21:23)
--- NOTE | 2021-02-01 10:21 | CON.PCM.CC_ITS ---
Assessment & Plan Assessment/Plan (1) Acute respiratory failure with hypoxia: (2) Pneumonia due to COVID-19 virus: (3) Stenosis of left internal carotid artery: (4) Chronic kidney disease (CKD): (5) Obstructive sleep apnea: PLAN: RECOMMENDATIONS: 1. Complete Remdesivir (02/02/2021), Decadron (02/03/2021) and baricitinib (02/12/2021) as ordered 2. Attempt BiPAP rescue, but may need intubation in the next 24 hours 3. Initiate stool softener 4. Hold baseline ARB. Diuresis as needed for euvolemia 5. Encourage prone positioning, Acapella and incentive spirometer as tolerated 6. Initiate bronchodilators IMPRESSIONS: 1. Acute hypoxic respiratory failure secondary to COVID-19 High clinical suspicion for concomitant COPD given increased AP diameter and diminished breath sounds. Will initiate patient on bronchodilators with DuoNeb. Patient is on maximal therapy for COVID-19. Will repeat chest x-ray to ensure there is not a secondary process such as a pneumomediastinum. Initial infiltrates were not very suggestive of this level of hypoxia. Patient did have an elevation of both hemidiaphragms on initial chest x-ray. Discussed with the patient. Will attempt BiPAP for an additional 24 hours, but if unable to take significant breaks up to Airvo, anticipate intubation in the next 24 hours. Encourage patient to use prone positioning. Patient does have an elevated hemoglobin at baseline. Unclear if this represents hemoconcentration versus possible chronic oxygen requirement. 2. Acute kidney injury on CKD stage III Patient with a creatinine of 1.36 in December. Diuretics and ARB have been held. Slowly improving. No indication for renal replacement therapy at this time. Will attempt diuresis intermittently. 3. Recent retinal artery occlusion/paroxysmal A. fib/nonvaccinated status/advanced age Complicates care, management, recovery and prognosis. Patient has been on anticoagulation, so concomitant PE is unlikely. Okay to continue with metopr olol. If patient does develop a pneumomediastinum, rate may be difficult to control. TIME: 32 minutes critical care time spent addressing patient's acute hypoxic respiratory failure, acute kidney injury, review of all data and collaboration with care team HPI Consult Data Date of Consult: 02/01/21 HPI Narrative HPI Narrative: BLADIMIR MARTÍNEZ is a 70 M, with past medical history listed below, who presents to [facility] on 01/29/2021 secondary to progressive shortness of breath that been getting worse over the last week. Patient states he started to have symptoms on the Saturday after Thanksgi. Patient reportedly was confused and had reported a cough productive of white to brown phlegm. Patient did have a low-grade temperature at home, but denied any nausea, vomiting or chest pain. Patient did have a mild headache reported and also reported some neck and back pain. In the ED, patient was afebrile, but saturating only 88% on room air at rest. Patient was tachycardic, but normotensive. Patient required up to 9 L nasal cannula to maintain saturations while in the ER. Patient was given albuterol and a dose of Decadron. COVID-19 testing was positive. Laboratory work-up s howed a white blood cell count of 5.4, hemoglobin of 15.6 and a platelet count of 143. Chemistry showed a BUN of 59 and a creatinine of 1.99. Lactate was within normal limits. D-dimer was elevated at 3.3 and chest x-ray showed elevation of bilateral hemidiaphragms with a possible right lower lobe infiltrate. EKG showed sinus rhythm with a right bundle branch. The patient was admitted to the floor for further evaluation. Since being on the floor, patient's hypoxia has continued to worsen. Patient got to the point where he was requiring 100% BiPAP to maintain saturations. Per the hospitalist, patient changed his CODE STATUS to a full code, so was transferred to the intensive care unit for further evaluation. Patient reportedly has been able to take short breaks for meds only. On my evaluation, patient felt subjectively slightly improved compared to previous. Patient was reporting significant dry mouth and a tightness in his abdomen. Patient believes his last bowel movement was over 4 days ago. Patient does carry diagnosis of COPD, but states he has never had a pulmonary function test, used inhalers or fail career development specialist. Patient did quit sometime ago. Patient does admit that he is not vaccinated against COVID-19. Patient has been followed by vascular surgery and ophthalmology for recent hemorrhagic glaucoma. Review of systems otherwise negative from a constitutional, HEENT, respiratory, cardiovascular, GI, genitourinary, musculoskeletal, skin, neurologic, psych iatric and hematologic system unless stated above. 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) HLD (hyperlipidemia) Hypothyroidism Mitral annular calcification Obstructive sleep apnea Right bundle branch block (RBBB) Right carpal tunnel syndrome Spinal stenosis Venous insufficiency (chronic) (peripheral) Home Medications epinephrine 0.3 mg IM PRN PRN 12/30/20 [History Last Taken Unknown] levothyroxine 112 mcg tablet 112 mcg PO DAILY 01/10/21 [History Last Taken Unknown] apixaban 5 mg tablet 5 mg PO BID #180 tab 01/18/21 [Rx Last Taken Unknown] atorvastatin 40 mg tablet 40 mg PO QHS #90 tab 01/18/21 [Rx Last Taken Unknown] dorzolamide 2 % eye drops 1 drp OPHTHALMIC (EYE) TID 01/18/21 [History Last Taken Unknown] losartan 25 mg tablet 25 mg PO DAILY PRN 01/18/21 [History Last Taken Unknown] prednisolone acetate 1 % eye drops,suspension 1 drp OPHTHALMIC (EYE) 4X/DAY 01/18/21 [History Last Taken Unknown] furosemide 40 mg PO DAILY 01/29/21 [History Last Taken Unknown] metoprolol succinate 25 mg PO DAILY 01/29/21 [History Last Taken Unknown] Allergy/AdvReac Type Severity Reaction Status Date / Time bee venom protein (honey bee) Allergy Anaphylaxis Verified 01/29/21 17:56 Penicillins Allergy Rash Verified 01/29/21 17:56 Surgical History History of arthroscopy of right knee History of cataract extraction History of colonoscopy History of elbow surgery History of left heart catheterization (~2009) History of tonsillectomy and adenoidectomy Social History Smoking Status: Former smoker Tobacco: How many years used: 30 Electronic Cigarette Use: not used how long ago did patient quit smoking: quit 24 years ago second hand exposure: No alcohol intake: never substance use type: does not use ROS ROS Narrative See HPI Physical Exam Const alert Constitutional Narrative: General Appearance: anxious, ill appearing Positive for acutely and on BiPAP Nutritional Appearance: obese HEENT head/scalp atraumatic Head and Scalp: normocephalic Eyes PERRL, EOMs intact bilaterally and no scleral icterus Neck full ROM Lymph Lymphatic: lymphadenopathy Lymphadenopathy Laterality: bilateral Positive for multiple Chest Chest: abnormal inspection of the chest barrel chest and symmetrical chest wall rise; Negative for crepitus Resp no retractions Effort and Inspection: tachypneic and prolonged expiratory phase Auscultation: diminished lung sounds; Negative for rales, rhonchi or wheezes Cardio regular rate, S1 normal heart sound, S2 normal heart sound, no murmurs, no rub and no gallops Rhythm: abnormal rhythm irregularly irregular GI soft to palpation, non-tender and non-distended Inspection: Negative for abdominal distention Palpation: tender suprapubic; Negative for guarding or ascites no CVA tenderness Extremity no clubbing, cyanosis or edema Skin no rashes or lesions noted Skin Narrative: Dermal atrophy appreciated Neuro oriented x3, CN's II-XII intact bilaterally and moves all extremities Psych cooperative Activity / Motor Behavior: restless Mood & Affect: anxious Medical Records Data Medical Nutrition Assessment Dietitian: Malnutrition Criteria Met Start: 01/30/21 12:20 Freq: Status: Active Protocol: Document 01/30/21 12:22 (Rec: 01/30/21 12:22 [id number]) Nutrition Malnutrition Evidence of Malnutrition Exists Yes Malnutrition (severe): Acute Illness/Injury Evidenced By Suboptimal Energy Intake ( Severe),Weight Loss (Severe) Clinical Problem Acute Disease or Injury Related Malnutrition Etiology severe, acute malnutrition r/t inadequate energy intake w/ acute COVID illness Signs/Symptoms as evidenced by reported decreased PO intake estimated to be meeting <50% of estimated nutritional needs x1 week MARKETING COMMUNICATIONS COORDINATOR, 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 Lab / Micro Data Result Diagrams: 02/01/21 06:26 02/01/21 06:26 Labs: Laboratory Results - last 24 hr 02/01/21 06:26: WBC 9.8, RBC 5.45, Hgb 15.4, Hct 48.1, MCV 88.3, MCH 28.3, MCHC 32.0, RDW Std Deviation 45.4 H, RDW Coeff of Kaylee 14.1, Plt Count 179, MPV 10.8, Immature Gran % (Auto) 0.600, Neut % (Auto) 88.9 H, Lymph % (Auto) 5.3 L, [place] % (Auto) 5.0, Eos % (Auto) 0.0, Baso % (Auto) 0.2, Absolute Neuts (auto) 8.7 H, Absolute Lymphs (auto) 0.52 L, Nucleated RBC % 0, Differential Comment SCANNED 02/01/21 06:26: Sodium 143, Potassium 3.9, Chloride 106, Carbon Dioxide 27.0, Anion Gap 10, BUN 78 H, Creatinine 1.80 H, Estim Creat Clear Calc 38.30, Est GFR (MDRD) Af Amer 48 L, Est GFR (MDRD) Non-Af 40 L, BUN/Creatinine Ratio 43.3 H, Glucose 141 H, Calcium 8.7, Total Bilirubin 0.50, AST 43 H, ALT 35, Alkaline Phosphatase 73, Total Protein 7.0, Albumin 2.4 L, Globulin 4.6 H, Albumin/Globulin Ratio 0.5 L Micro: Microbiology 01/30/21 10:45 Sputum, Expectorated/Coughed Gram Stain - Final 01/30/21 10:45 Sputum, Expectorated/Coughed Respiratory Culture - Final Streptococcus group G 01/29/21 18:40 Blood Culture (Wb) - Anticubital Right Blood Culture - Preliminary No growth in 48 hours. 01/29/21 18:30 Blood Culture (Wb) - Anticubital Left Blood Culture - Preliminary No growth in 48 hours. Charges/Coding Procedures Hospitalists Procedures: [id number] [facility] 1st Hr
[2021-02-01] MEDS: prednisoLONE eye drops (5 mL) 1 DROP OPTH.BTL 1 DRP LEFT EYE ×4 (10:26→21:22)
--- NOTE | 2021-02-01 11:50 | RAD_ITS ---
STUDY: X-RAY CHEST REASON FOR EXAM: Male, 70 years old. Worsening hypoxia with COVID TECHNIQUE: Single AP portable view of the chest. COMPARISON: Comparison is made with prior study dated 01/29/2021. FINDINGS: EKG electrodes are seen. Limited inspiratory effort. Persistent increased markings at the lung bases worse on the right side suggests of bibasilar atelectasis. There has been a mild degree of improvement. Normal size heart. Normal mediastinum and german. Normal visualized pulmonary arteries. Normal visualized aortic arch and descending thoracic aorta. Normal visualized thoracic spine. Normal visualized ribs, clavicles, and shoulders. Gaseous distention of the colon. RAD/Chest 1 View (Portable) IMPRESSION: Limited inspiratory effort and residual bibasilar atelectasis. There has been improvement as compared to prior study. Electronically Signed: Yordan Negro MD at 12:33 EST , Service support ,
--- NOTE | 2021-02-01 12:25 | PCM.PN.HOSP ---
Subjective Subjective Has been on 100% FiO2 with BiPAP. Complains of dry mouth. Objective Data Objective Data Vital Signs: Vital Signs Temp Pulse Resp BP Pulse Ox 36.3 C L 75 24 H 131/81 H 95 02/01/21 12:00 02/01/21 12:00 02/01/21 12:00 02/01/21 12:00 02/01/21 12:00 Oxygen Flow Rate (L/min) 100 Oxygen Delivery Method Bi-pap Weight: 92.3 kg Body Mass Index (BMI) 29.2 Intake & Output: Intake and Output for Last 24 Hours 01/30/21 01/31/21 02/01/21 23:59 23:59 23:59 Intake Total 2108.33 / 2108.33 660 / 660 780 / 780 Output Total 1300 / 1300 1025 / 1025 775 / 775 Balance 808.33 / 808.33 -365 / -365 Medical Nutrition Assessment Dietitian: Malnutrition Criteria Met Start: 01/30/21 12:20 Freq: Status: Active Protocol: Document 01/30/21 12:22 (Rec: 01/30/21 12:22 [id number]) Nutrition Malnutrition Evidence of Malnutrition Exists Yes Malnutrition (severe): Acute Illness/Injury Evidenced By Suboptimal Energy Intake ( Severe),Weight Loss (Severe) Clinical Problem Acute Disease or Injury Related Malnutrition Etiology severe, acute malnutrition r/t inadequate energy intake w/ acute COVID illness Signs/Symptoms as evidenced by reported decreased PO intake estimated to be meeting <50% of estimated nutritional needs x1 week ROSS LIFT OPERATOR, 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 Lab / Micro Data Result Diagrams: 02/01/21 06:26 02/01/21 06:26 Labs: Laboratory Results - last 24 hr 02/01/21 06:26: WBC 9.8, RBC 5.45, Hgb 15.4, Hct 48.1, MCV 88.3, MCH 28.3, MCHC 32.0, RDW Std Deviation 45.4 H, RDW Coeff of Kaylee 14.1, Plt Count 179, MPV 10.8, Immature Gran % (Auto) 0.600, Neut % (Auto) 88.9 H, Lymph % (Auto) 5.3 L, [place] % (Auto) 5.0, Eos % (Auto) 0.0, Baso % (Auto) 0.2, Absolute Neuts (auto) 8.7 H, Absolute Lymphs (auto) 0.52 L, Nucleated RBC % 0, Differential Comment SCANNED 02/01/21 06:26: Sodium 143, Potassium 3.9, Chloride 106, Carbon Dioxide 27.0, Anion Gap 10, BUN 78 H, Creatinine 1.80 H, Estim Creat Clear Calc 38.30, Est GFR (MDRD) Af Amer 48 L, Est GFR (MDRD) Non-Af 40 L, BUN/Creatinine Ratio 43.3 H, Glucose 141 H, Calcium 8.7, Total Bilirubin 0.50, AST 43 H, ALT 35, Alkaline Phosphatase 73, Total Protein 7.0, Albumin 2.4 L, Globulin 4.6 H, Albumin/Globulin Ratio 0.5 L Micro: Microbiology 01/30/21 10:45 Sputum, Expectorated/Coughed Gram Stain - Final 01/30/21 10:45 Sputum, Expectorated/Coughed Respiratory Culture - Final Streptococcus group G 01/29/21 18:40 Blood Culture (Wb) - Anticubital Right Blood Culture - Preliminary No growth in 48 hours. 01/29/21 18:30 Blood Culture (Wb) - Anticubital Left Blood Culture - Preliminary No growth in 48 hours. 01/30/21 00:19 Urine, Clean Catch Streptococcus pneumoniae Antigen (M - Final 01/30/21 00:19 Urine, Clean Catch Legionella Antigen - Final 01/30/21 02:00 Mucosa - Nasopharyngeal Respiratory Panel (PCR) - Final 01/29/21 20:15 Nasal Secretion SARS-CoV-2 Antigen (Rapid) - Final SARS-CoV-2 (COVID 19) Physical Exam Const alert and no apparent distress Constitutional Narrative: on BiPAP. HEENT head/scalp atraumatic and moist oral mucous membranes Head and Scalp: normocephalic Eyes PERRL and EOMs intact bilaterally Neck no lymphadenopathy Resp normal respiratory effort, no retractions, no use of accessory muscles and clear to auscultation bilaterally Cardio regular rate, regular rhythm, S1 normal heart sound and S2 normal heart sound GI normal to inspection, nondistended, normoactive bowel sounds, soft to palpation, non-tender and non-distended Extremity normal to inspection and full ROM Assessment & Plan Assessment/Plan (1) Pneumonia due to COVID-19 virus: (2) Acute respiratory failure with hypoxia: PLAN: 1. acute hypoxic respiratory failure continues to worsen 2/2 COVID 19 increased FiO2 requirements. now on BiPAP verified code status--DNRCCA, no intubation. I explained to urgency for intubation at this time resp panel, strep Ag, leg Ag negative, SCx so far negative. 02/01: transfer to ICU. [facility] consult. 2. Acute COVID 19 pneumonia unvaccinated onset 01/21, quarantine through 02/09 on dex, rem-d, baricitinib 3. metabolic encephalopathy resolved 2/2 hypoxia and COVID 19, no additional work up at this time 4. Recent left retinal arterial occlusion may be due pafib 5. Pafib on apixaban metoprolol succinate 6. VTE prophylaxis: not indicated. Charges/Coding Visit Charges Inpatient E&M: 14334 Subs Hosp L2
[2021-02-01 14:09] LABS: BUN/Creat Ratio 98.7 RATIO (10-20); Creatinine, Serum 0.79 mg/dL (0.70-1.30); EST Glomerular Filtration Rate 102 mL/min (>60); Est Glom Filt Rate - Afr Amer 124 mL/min (>60); Estimated Creatinine Clearance 68.94 ml/min
--- NOTE | 2021-02-01 17:22 | NURSING ---
pt resting in bed, RT just changed to airvo at 1700 settings 60L, 91%. Oral care given and swabbed mouth
[2021-02-01] MEDS: Ipratropium/Albuterol Sulfate 3 ML AMPUL.NEB INHALATION (18:45)
[2021-02-01] MEDS: Atorvastatin Calcium 40 MG Tablet PO (21:23)
--- NOTE | 2021-02-01 22:00 | NURSING ---
Pt primafit leaking, complete bath and bed change. pt placed on bipap.
[2021-02-02] VITALS (36 sets, daily range): BP systolic 90–158; BP diastolic 55–127; PULSE 42–66; RESP 14–30; TEMP 35.5–36.4; O2SAT 89–97
--- NOTE | 2021-02-02 00:07 | CPS ---
Patient transitioned to AVAPS BiPAP mode for low saturations on 100% 08/10. Pulse ox still remaining 92-93% after being increased from 70% FiO2 after initially putting on BiPAP for tonight.
--- NOTE | 2021-02-02 04:40 | NURSING ---
Pt wakes for lab draw. Pt requesting water, mouth swabbed.
[2021-02-02 04:51] LABS: Absolute Lymphocyte Count 0.57 X10^3/uL (0.83-4.51); Absolute Neutrophil Count 6.9 X10^3/uL (2.0-7.7); Basophil# 0.03 X10^3/uL; Basophil% 0.4 % (0-1); Hematocrit 49.8 % (40-54); Lymphocyte # 0.57 X10^3/ul (0.83-4.51); Lymphocyte % 7.1 % (19-41); Mean Corp Hgb Conc 32.1 g/dL (32-36); Mean Corpuscular Hgb 28.4 pg (27.0-32.0); Mean Corpuscular Volume 88.5 fL (80-94); Mean Platelet Vol. 10.8 fl (6.2-12.0); Monocyte# 0.48 X10^3/uL; NRBC Flagged by Analyzer 0 % (0-5); Neutrophil # 6.85 X10^3/uL (2.7-7.7); Neutrophil % 85.4 % (47-70); POSITIVE DIFFERENTIAL YES; POSITIVE MORPHOLOGY YES; Platelet Count 177 K/mm3 (150-450); RBC Distribution Width SD 45.4 fl (35.1-43.9); Red Blood Count 5.63 M/mm3 (4.6-6.2)
[2021-02-02 04:54] LABS: Differential Indicated SCAN CRITERIA MET
[2021-02-02 05:09] LABS: ALB/GLOB Ratio 0.5 RATIO (0.9-2.4); AST(SGOT) 39 U/L (15-37); Alanine Aminotransfer ALT/SGPT 35 U/L (16-61); Albumin, Serum 2.3 g/dL (3.2-5.0); Alkaline Phosphatase 77 U/L (45-117); Anion Gap 6 (5-15); BUN 65 mg/dL (7-18); BUN/Creat Ratio 45.8 RATIO (10-20); Calcium,Total 8.6 mg/dL (8.5-10.1); Chloride 109 mmol/L (98-107); Creatinine, Serum 1.42 mg/dL (0.70-1.30); EST Glomerular Filtration Rate 52 mL/min (>60); Est Glom Filt Rate - Afr Amer 63 mL/min (>60); Estimated Creatinine Clearance 48.55 ml/min; Glucose 185 mg/dL (74-106); Potassium 5.4 mmol/L (3.5-5.1); Protein, Total 7.3 g/dL (6.4-8.2); Sodium Level 142 mmol/L (136-145)
[2021-02-02 05:12] LABS: Differential Comment SCANNED
[2021-02-02] MEDS: Dorzolamide 2% 10ml Bottle 1 DRP OPHTHALMIC ×3 (06:39→20:15)
[2021-02-02] MEDS: Ipratropium/Albuterol Sulfate 3 ML AMPUL.NEB INHALATION ×3 (07:11→19:25)
--- NOTE | 2021-02-02 08:11 | PN.CC_ITS ---
Assessment & Plan Assessment/Plan (1) Acute respiratory failure with hypoxia: (2) Pneumonia due to COVID-19 virus: (3) Stenosis of left internal carotid artery: (4) Chronic kidney disease (CKD): (5) Obstructive sleep apnea: PLAN: RECOMMENDATIONS: 1. Complete Remdesivir (02/02/2021), Decadron (02/03/2021) and baricitinib (02/12/2021) as ordered 2. Attempt BiPAP breaks as tolerated. Continue BiPAP with sleep 3. Increase activity as tolerated 4. Hold baseline ARB. Diuresis as needed for euvolemia 5. Encourage prone positioning, Acapella and incentive spirometer as tolerated 6. Continue to monitor in intensive care unit IMPRESSIONS: 1. Acute hypoxic respiratory failure secondary to COVID-19 High clinical suspicion for concomitant COPD given increased AP diameter and diminished breath sounds. Will initiate patient on bronchodilators with DuoNeb. Patient is on maximal therapy for COVID-19. Chest x-ray yesterday showed some improvement in infiltrates. Initial infiltrates were not very suggestive of this level of hypoxia. Patient did have continued elevation of both hemidiaphragms on chest x-ray. Discussed with the patient. Patient was able to tolerate Airvo for significant amount of time yesterday. We will cont inue with conservative supplementation of oxygen. Encourage patient to use prone positioning. Patient does have an elevated hemoglobin at baseline. Unclear if this represents hemoconcentration versus possible chronic oxygen requirement. 2. Acute kidney injury on CKD stage III Improving. Patient with a creatinine of 1.36 in December. Diuretics and ARB have been held. No indication for renal replacement therapy at this time. Will attempt diuresis intermittently. 3. Recent retinal artery occlusion/paroxysmal A. fib/nonvaccinated status/advanced age Complicates care, management, recovery and prognosis. Patient has been on anticoagulation, so concomitant PE is unlikely. Okay to continue with metoprolol. If patient does develop a pneumomediastinum, rate may be difficult to control. Subjective Subjective Patient did okay overnight. No acute issues were reported. Patient was able to tolerate Airvo yesterday evening and BiPAP overnight. Patient continues to have a cough with intermittent production. Objective Data Objective Data Vital Signs: Vital Signs Temp Pulse Resp BP Pulse Ox 35.5 C L 51 L 24 H 141/127 H 90 02/02/21 04:00 02/02/21 07:11 02/02/21 07:11 02/02/21 07:00 02/02/21 07:11 Oxygen Flow Rate (L/min) 60 Oxygen Delivery Method Bi-pap Weight: 92.4 kg Body Mass Index (BMI) 29.2 Intake & Output: Intake and Output for Last 24 Hours 01/31/21 02/01/21 02/02/21 23:59 23:59 23:59 Intake Total 660 / 660 1680.88 / 1692.38 146.01 / 146.01 Output Total 1025 / 1025 775 / 775 500 / 500 Balance -365 / -365 905.88 / 917.38 -353.99 / -353.99 Medical Nutrition Assessment Dietitian: Malnutrition Criteria Met Start: 01/30/21 12:20 Freq: Status: Active Protocol: Document 01/30/21 12:22 (Rec: 01/30/21 12:22 [id number]) Nutrition Malnutrition Evidence of Malnutrition Exists Yes Malnutrition (severe): Acute Illness/Injury Evidenced By Suboptimal Energy Intake ( Severe),Weight Loss (Severe) Clinical Problem Acute Disease or Injury Related Malnutrition Etiology severe, acute malnutrition r/t inadequate energy intake w/ acute COVID illness Signs/Symptoms as evidenced by reported decreased PO intake estimated to be meeting <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 Lab / Micro Data Result Diagrams: 02/02/21 04:40 02/02/21 04:40 Labs: Laboratory Results - last 24 hr 02/01/21 06:26: Differential Comment SCANNED 02/01/21 06:26: Creatinine 0.79, Estim Creat Clear Calc 68.94, Est GFR (MDRD) Af Amer 124, Est GFR (MDRD) Non-Af 102, BUN/Creatinine Ratio 98.7 H 02/02/21 04:40: WBC 8.0, RBC 5.63, Hgb 16.0, Hct 49.8, MCV 88.5, MCH 28.4, MCHC 32.1, RDW Std Deviation 45.4 H, RDW Coeff of Kaylee 14.0, Plt Count 177, MPV 10.8, Immature Gran % (Auto) 1.100 H, Neut % (Auto) 85.4 H, Lymph % (Auto) 7.1 L, [place] % (Auto) 6.0, Eos % (Auto) 0.0, Baso % (Auto) 0.4, Absolute Neuts (auto) 6.9, Absolute Lymphs (auto) 0.57 L, Nucleated RBC % 0, Differential Comment SCANNED 02/02/21 04:40: Sodium 142, Potassium 5.4 H, Chloride 109 H, Carbon Dioxide 27.0, Anion Gap 6, BUN 65 H, Creatinine 1.42 H, Estim Creat Clear Calc 48.55, Est GFR (MDRD) Af Amer 63, Est GFR (MDRD) Non-Af 52 L, BUN/Creatinine Ratio 45.8 H, Glucose 185 H, Calcium 8.6, Total Bilirubin 0.50, AST 39 H, ALT 35, Alkaline Phosphatase 77, Total Protein 7.3, Albumin 2.3 L, Globulin 5.0 H, Albumin/Globulin Ratio 0.5 L Micro: Microbiology 01/30/21 10:45 Sputum, Expectorated/Coughed Gram Stain - Final 01/30/21 10:45 Sputum, Expectorated/Coughed Respiratory Culture - Final Streptococcus group G 01/29/21 18:40 Blood Culture (Wb) - Anticubital Right Blood Culture - Preliminary No growth in 48 hours. 01/29/21 18:30 Blood Culture (Wb) - Anticubital Left Blood Culture - Preliminary No growth in 48 hours. 01/30/21 00:19 Urine, Clean Catch Streptococcus pneumoniae Antigen (M - Fi nal 01/30/21 00:19 Urine, Clean Catch Legionella Antigen - Final 01/30/21 02:00 Mucosa - Nasopharyngeal Respiratory Panel (PCR) - Final 01/29/21 20:15 Nasal Secretion SARS-CoV-2 Antigen (Rapid) - Final SARS-CoV-2 (COVID 19) Radiography Diagnostic Testing: Radiology Impression Chest X-Ray 02/01/21 11:50 IMPRESSION: Limited inspiratory effort and residual bibasilar atelectasis. There has been improvement as compared to prior study. Electronically Signed: Yordan Negro MD at 12:33 EST , Service support , Physical Exam Const alert Constitutional Narrative: General Appearance: anxious, ill appearing Positive for acutely and on BiPAP Nutritional Appearance: obese HEENT head/scalp atraumatic Head and Scalp: normocephalic Eyes PERRL, EOMs intact bilaterally and no scleral icterus Neck full ROM Lymph Lymphatic: lymphadenopathy Lymphadenopathy Laterality: bilateral Chest Chest: abnormal inspection of the chest barrel chest and symmetrical chest wall rise; Negative for crepitus Resp no retractions Effort and Inspection: tachypneic and prolonged expiratory phase Auscultation: diminished lung sounds; Negative for rales, rhonchi or wheezes Cardio regular rate, S1 normal heart sound, S2 normal heart sound, no murmurs, no rub and no gallops Rhythm: abnormal rhythm irregularly irregular GI soft to palpation, non-tender and non-distended Inspection: Negative for abdominal distention Palpation: tender suprapubic; Negative for guarding or ascites no CVA tenderness Extremity no clubbing, cyanosis or edema Skin no rashes or lesions noted Skin Narrative: Dermal atrophy appreciated Neuro oriented x3, CN's II-XII intact bilaterally and moves all extremities Psych cooperative Activity / Motor Behavior: restless Mood & Affect: anxious Charges/Coding Visit Charges Inpatient E&M: 96824 Subs Hosp L3
[2021-02-02] MEDS: dexAMETHasone 4 MG/ML Vial 6 MG IV (08:40)
[2021-02-02] MEDS: Levothyroxine 112 MCG Tablet PO (08:41)
[2021-02-02] MEDS: APIXABAN 5 MG TABLET PO ×2 (08:45→20:14)
[2021-02-02] MEDS: prednisoLONE eye drops (5 mL) 1 DROP OPTH.BTL 1 DRP LEFT EYE ×4 (08:46→20:14)
[2021-02-02] MEDS: CHLORHEXIDINE GLUC 2% CLOTH 1 EACH TOWELETTE TOPICAL (08:51)
--- NOTE | 2021-02-02 10:36 | PCM.PN.ID ---
Physical Exam Narrative Breathing a little better, no fever, no n/v/d Const alert and no apparent distress General Appearance: cooperative Resp clear to auscultation bilaterally Auscultation: diminished lung sounds Cardio regular rate and regular rhythm GI normal to inspection, nondistended, normoactive bowel sounds Skin no rashes or lesions noted ID ID: Route of nutrition/ use of supplements: [] Nutritional Intake: [] IV Site: [] Beckman Catheter: [] Assessment & Plan Assessment/Plan (1) Pneumonia due to COVID-19 virus: PLAN: Sx started 01/21. Unvaccinated. Isolate for 20 days until 02/09. Recommend vaccine once out of isolation. On dex, completed remdesivir. On baricitinib. CRP 100. Sputum with strep, completes ceftriaxone 02/05. Will follow (2) Hypoxia:
--- NOTE | 2021-02-02 15:23 | PN.HOSP_ITS ---
Subjective Subjective Weaned to Airvo. Breathing well at this time. Objective Data Objective Data Vital Signs: Vital Signs Temp Pulse Resp BP Pulse Ox 36.4 C L 65 18 100/70 90 02/02/21 09:00 02/02/21 15:00 02/02/21 15:00 02/02/21 15:00 02/02/21 15:00 Oxygen Flow Rate (L/min) 60 Oxygen Delivery Method Airvo Weight: 92.4 kg Body Mass Index (BMI) 29.2 Intake & Output: Intake and Output for Last 24 Hours 01/31/21 02/01/21 02/02/21 23:59 23:59 23:59 Intake Total 660 / 660 1680.88 / 1692.38 383.09 / 383.09 Output Total 1025 / 1025 775 / 775 500 / 500 Balance -365 / -365 905.88 / 917.38 -116.91 / -116.91 Medical Nutrition Assessment Dietitian: Malnutrition Criteria Met Start: 01/30/21 12:20 Freq: Status: Active Protocol: Document 01/30/21 12:22 AG (Rec: 01/30/21 12:22 [id number]) Nutrition Malnutrition Evidence of Malnutrition Exists Yes Malnutrition (severe): Acute Illness/Injury Evidenced By Suboptimal Energy Intake ( Severe),Weight Loss (Severe) Clinical Problem Acute Disease or Injury Related Malnutrition Etiology severe, acute malnutrition r/t inadequate energy intake w/ acute COVID illness Signs/Symptoms as evidenced by reported decreased PO intake estimated to be meeting <50% of estimated nutritional needs x1 week [employer], 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 Lab / Micro Data Result Diagrams: 02/02/21 04:40 02/02/21 04:40 Labs: Laboratory Results - last 24 hr 02/02/21 04:40: WBC 8.0, RBC 5.63, Hgb 16.0, Hct 49.8, MCV 88.5, MCH 28.4, MCHC 32.1, RDW Std Deviation 45.4 H, RDW Coeff of Kaylee 14.0, Plt Count 177, MPV 10.8, Immature Gran % (Auto) 1.100 H, Neut % (Auto) 85.4 H, Lymph % (Auto) 7.1 L, [place] % (Auto) 6.0, Eos % (Auto) 0.0, Baso % (Auto) 0.4, Absolute Neuts (auto) 6.9, Absolute Lymphs (auto) 0.57 L, Nucleated RBC % 0, Differential Comment SCANNED 02/02/21 04:40: Sodium 142, Potassium 5.4 H, Chloride 109 H, Carbon Dioxide 27.0, Anion Gap 6, BUN 65 H, Creatinine 1.42 H, Estim Creat Clear Calc 48.55, Est GFR (MDRD) Af Amer 63, Est GFR (MDRD) Non-Af 52 L, BUN/Creatinine Ratio 45.8 H, Glucose 185 H, Calcium 8.6, Total Bilirubin 0.50, AST 39 H, ALT 35, Alkaline Phosphatase 77, Total Protein 7.3, Albumin 2.3 L, Globulin 5.0 H, Albumin/Globulin Ratio 0.5 L Micro: Microbiology 01/30/21 10:45 Sputum, Expectorated/Coughed Gram Stain - Final 01/30/21 10:45 Sputum, Expectorated/Coughed Respiratory Culture - Final Streptococcus group G 01/29/21 18:40 Blood Culture (Wb) - Anticubital Right Blood Culture - Preliminary No growth in 48 hours. 01/29/21 18:30 Blood Culture (Wb) - Anticubital Left Blood Culture - Preliminary No growth in 48 hours. 01/30/21 00:19 Urine, Clean Catch Streptococcus pneumoniae Antigen (M - Final 01/30/21 00:19 Urine, Clean Catch Legionella Antigen - Final 01/30/21 02:00 Mucosa - Nasopharyngeal Respiratory Panel (PCR) - Final 01/29/21 20:15 Nasal Secretion SARS-CoV-2 Antigen (Rapid) - Final SARS-CoV-2 (COVID 19) Physical Exam Const alert and no apparent distress Constitutional Narrative: up in chair. Resp normal respiratory effort, no retractions, no use of accessory muscles and clear to auscultation bilaterally Cardio regular rate, regular rhythm, S1 normal heart sound and S2 normal heart sound GI normal to inspection, nondistended, normoactive bowel sounds, soft to palpation, non-tender and non-distended Extremity normal to inspection Assessment & Plan Assessment/Plan (1) Pneumonia due to COVID-19 virus: (2) Acute respiratory failure with hypoxia: PLAN: 1. acute hypoxic respiratory failure continues to worsen 2/2 COVID 19 and Strep pneumonia increased FiO2 requirements. now on BiPAP verified code status--DNRCCA, no intubation. I explained to urgency for intubation at this time resp panel, strep Ag, leg Ag negative, SCx so far negative. 02/01: transfer to ICU. [facility] consult. 2. Acute COVID 19 pneumonia unvaccinated onset 01/21, quarantine through 02/09 on dex, rem-d, baricitinib 3. Streptococcal pneumonia on CTX 4. metabolic encephalopathy resolved 2/2 hypoxia and COVID 19, no additional work up at this time 5. Recent left retinal arterial occlusion may be due pafib 6. Pafib on apixaban metoprolol succinate 7. VTE prophylaxis: not indicated. Charges/Coding Visit Charges Inpatient E&M: 14204 Subs Hosp L2
[2021-02-02] MEDS: Atorvastatin Calcium 40 MG Tablet PO (20:14)
[2021-02-02] MEDS: Senna/Docusate Sodium 1 Tablet 2 TABLET PO (20:14)
[2021-02-02] MEDS: 0.9% Saline Lock 10 ML Syringe IV (20:33)
[2021-02-03] VITALS (38 sets, daily range): BP systolic 80–146; BP diastolic 55–89; PULSE 50–98; RESP 14–33; TEMP 36.1–38.3; O2SAT 86–97
[2021-02-03] MEDS: Ipratropium/Albuterol Sulfate 3 ML AMPUL.NEB INHALATION ×4 (02:00→19:07)
--- NOTE | 2021-02-03 02:36 | EKG12_ITS ---
Test Reason : ARYTHMIA Blood Pressure : / mmHG Vent. Rate : 062 BPM Atrial Rate : 062 BPM P-R Int : 196 ms QRS Dur : 150 ms QT Int : 494 ms P-R-T Axes : 028 090 030 degrees QTc Int : 501 ms Normal sinus rhythm Right bundle branch block Abnormal ECG When compared with ECG of 29-JAN-2021 18:28, Vent. rate has decreased BY 38 BPM Confirmed by ARPITA MARES, ABEBA ([id number]), clinical editor TIARA HASTINGS ([id number]) on 02/07/2021 7:35:58 AM Referred By: BELA Confirmed By:ABEBA PALM MD
[2021-02-03 03:14] LABS: Absolute Lymphocyte Count 0.64 X10^3/uL (0.83-4.51); Absolute Neutrophil Count 8.2 X10^3/uL (2.0-7.7); Basophil# 0.03 X10^3/uL; Basophil% 0.3 % (0-1); Hematocrit 49.7 % (40-54); Hemoglobin 16.2 g/dL (13.0-16.5); Lymphocyte # 0.64 X10^3/ul (0.83-4.51); Lymphocyte % 6.7 % (19-41); Mean Corp Hgb Conc 32.6 g/dL (32-36); Mean Corpuscular Hgb 28.7 pg (27.0-32.0); Mean Corpuscular Volume 88.1 fL (80-94); Mean Platelet Vol. 10.8 fl (6.2-12.0); Monocyte# 0.53 X10^3/uL; Monocyte% 5.6 % (0-10); NRBC Flagged by Analyzer 0 % (0-5); Neutrophil # 8.24 X10^3/uL (2.7-7.7); Neutrophil % 86.5 % (47-70); Platelet Count 192 K/mm3 (150-450); RBC Distribution Width CV 13.8 % (11.6-14.6); RBC Distribution Width SD 44.4 fl (35.1-43.9); Red Blood Count 5.64 M/mm3 (4.6-6.2); White Blood Count 9.5 K/mm3 (4.4-11.0)
[2021-02-03 04:11] LABS: ALB/GLOB Ratio 0.5 RATIO (0.9-2.4); AST(SGOT) 34 U/L (15-37); Alanine Aminotransfer ALT/SGPT 32 U/L (16-61); Albumin, Serum 2.4 g/dL (3.2-5.0); Alkaline Phosphatase 79 U/L (45-117); Anion Gap 7 (5-15); BUN 55 mg/dL (7-18); Calcium,Total 8.5 mg/dL (8.5-10.1); Chloride 110 mmol/L (98-107); EST Glomerular Filtration Rate 70 mL/min (>60); Est Glom Filt Rate - Afr Amer 85 mL/min (>60); Estimated Creatinine Clearance 62.68 ml/min; Globulin 4.6 g/dL (2.2-4.2); Glucose 176 mg/dL (74-106); Potassium 4.3 mmol/L (3.5-5.1); Sodium Level 142 mmol/L (136-145)
[2021-02-03] MEDS: Dorzolamide 2% 10ml Bottle 1 DRP OPHTHALMIC ×3 (06:17→20:14)
--- NOTE | 2021-02-03 07:17 | PN.CC_ITS ---
Assessment & Plan Assessment/Plan (1) Acute respiratory failure with hypoxia: (2) Pneumonia due to COVID-19 virus: (3) Stenosis of left internal carotid artery: (4) Chronic kidney disease (CKD): (5) Obstructive sleep apnea: PLAN: RECOMMENDATIONS: 1. Completed Remdesivir. Continue Decadron (02/03/2021) and baricitinib (02/12/2021) as ordered 2. Attempt BiPAP breaks as tolerated. Continue BiPAP with sleep 3. Increase activity as tolerated 4. Hold baseline ARB. Diuresis as needed for euvolemia 5. Encourage prone positioning, Acapella and incentive spirometer as tolerated 6. Continue to monitor in intensive care unit IMPRESSIONS: 1. Acute hypoxic respiratory failure secondary to COVID-19 High clinical suspicion for concomitant COPD given increased AP diameter and diminished breath sounds. Will initiate patient on bronchodilators with DuoNeb. Patient is on maximal therapy for COVID-19. Chest x-ray yesterday showed some improvement in infiltrates. Initial infiltrates were not very suggestive of this level of hypoxia. Patient did have continued elevation of both hemidiaphragms on chest x-ray. Discussed with the patient. Patient was able to tolerate Airvo for significant amount of time yesterday evening. We wi ll continue with conservative supplementation of oxygen. Encourage patient to use prone positioning. Patient does have an elevated hemoglobin at baseline. Unclear if this represents hemoconcentration versus possible chronic oxygen requirement that was not addressed prior to the hospitalization. 2. Acute kidney injury on CKD stage III Improving. Patient with a creatinine of 1.36 in December. Diuretics and ARB have been held. No indication for renal replacement therapy at this time. Will attempt diuresis intermittently. 3. Recent retinal artery occlusion/paroxysmal A. fib/nonvaccinated status/advanced age Complicates care, management, recovery and prognosis. Patient has been on anticoagulation, so concomitant PE is unlikely. Okay to continue with metoprolol. If patient does develop a pneumomediastinum, rate may be difficult to control. Addendum 4:05 PM: Patient perseverating on water throughout the day. Patient was removing BiPAP and desaturating into the 50s and 60s. Patient started to use accessory muscles for respiration. Patient's daughter was contacted and patient was intubated emergently. Intubation Indication: Hypoxia Consent was obtained from: Emergent The patient was placed in the appropriate sniffing position. Preoxygenated sedation via BiPAP was provided for a minimum of 3 minutes. The patient had continuous cardiac as well as pulse oximetry monitoring during the procedure. Procedure sedation was provided by the administration of 100 of succinylcholine and 20 mg of etomidate. Video laryngoscopy was then performed using a number 4 blade, which revealed a grade 1 view. A 8 mm endotracheal tube was visualized advancing between the cords to the level of 25 cm at the lip. The stylette was then removed and discarded. Tube placement was confirmed by fogging in the tube along with equal and bilateral breath sounds. Colorimetric change was visualized on the CO2 meter. The cuff was then inflated and the tube secured using a commercially available device. A good pulse oximetry waveform was seen on the monitor throughout the procedure. A portable chest x-ray has been ordered to confirm appropriate placement. The patient tolerated the procedure well. TIME: 35 minutes of critical care time, in addition to morning assessment, was spent addressing patient's acute hypoxic respiratory failure, confirmation of CODE STATUS, review of all data and collaboration with care team (3 PM to 4 PM) Subjective Subjective Patient did okay overnight. Patient was resistant to go on to BiPAP with sleep. This morning, patient is perseverating on a dry mouth. Patient subjectively feels unchanged from a breathing standpoint compared to yesterday. Objective Data Objective Data Vital Signs: Vital Signs Temp Pulse Resp BP Pulse Ox 36.3 C L 65 25 H 124/73 H 95 02/03/21 04:00 02/03/21 07:16 02/03/21 07:16 02/03/21 07:00 02/03/21 07:16 Oxygen Flow Rate (L/min) 60 Oxygen Delivery Method Bi-pap Weight: 92.4 kg Body Mass Index (BMI) 29.2 Intake & Output: Intake and Output for Last 24 Hours 02/01/21 02/02/21 02/03/21 23:59 23:59 23:59 Intake Total 1680.88 / 1692.38 840.51 / 852.01 69.00 / 69.00 Output Total 775 / 775 1600 / 1600 650 / 650 Balance 905.88 / 917.38 -759.49 / -747.99 -581.00 / -581.00 Medical Nutrition Assessment Dietitian: Malnutrition Criteria Met Start: 01/30/21 12:20 Freq: Status: Active Protocol: Document 01/30/21 12:22 AG (Rec: 01/30/21 12:22 [id number]) Nutrition Malnutrition Evidence of Malnutrition Exists Yes Malnutrition (severe): Acute Illness/Injury Evidenced By Suboptimal Energy Intake ( Severe),Weight Loss (Severe) Clinical Problem Acute Disease or Injury Related Malnutrition Etiology severe, acute malnutrition r/t inadequate energy intake w/ acute COVID illness Signs/Symptoms as evidenced by reported decreased PO intake estimated to be meeting <50% of estimated nutritional needs x1 week [employer] CHEMI[employer], 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 Lab / Micro Data Result Diagrams: 02/03/21 03:00 02/03/21 03:00 Labs: Laboratory Results - last 24 hr 02/03/21 03:00: WBC 9.5, RBC 5.64, Hgb 16.2, Hct 49.7, MCV 88.1, MCH 28.7, MCHC 32.6, RDW Std Deviation 44.4 H, RDW Coeff of Kaylee 13.8, Plt Count 192, MPV 10.8, Immature Gran % (Auto) 0.900, Neut % (Auto) 86.5 H, Lymph % (Auto) 6.7 L, [place] % (Auto) 5.6, Eos % (Auto) 0.0, Baso % (Auto) 0.3, Absolute Neuts (auto) 8.2 H, Absolute Lymphs (auto) 0.64 L, Nucleated RBC % 0 02/03/21 03:00: Sodium 142, Potassium 4.3, Chloride 110 H, Carbon Dioxide 25.0, Anion Gap 7, BUN 55 H, Creatinine 1.10, Estim Creat Clear Calc 62.68, Est GFR (MDRD) Af Amer 85, Est GFR (MDRD) Non-Af 70, BUN/Creatinine Ratio 50.0 H, Glucose 176 H, Calcium 8.5, Total Bilirubin 0.50, AST 34, ALT 32, Alkaline Phosphatase 79, Total Protein 7.0, Albumin 2.4 L, Globulin 4.6 H, Albumin/Globulin Ratio 0.5 L Micro: Microbiology 01/30/21 10:45 Sputum, Expectorated/Coughed Gram Stain - Final 01/30/21 10:45 Sputum, Expectorated/Coughed Respiratory Culture - Final Streptococcus group G 01/29/21 18:40 Blood Culture (Wb) - Anticubital Right Blood Culture - Preliminary No growth in 48 hours. 01/29/21 18:30 Blood Culture (Wb) - Anticubital Left Blood Culture - Preliminary No growth in 48 hours. 01/30/21 00:19 Urine, Clean Catch Streptococcus pneumoniae Antigen (M - Final 01/30/21 00:19 Urine, Clean Catch Legionella Antigen - Final 01/30/21 02:00 Mucosa - Nasopharyngeal Respiratory Panel (PCR) - Final 01/29/21 20:15 Nasal Secretion SARS-CoV-2 Antigen (Rapid) - Final SARS-CoV-2 (COVID 19) Physical Exam Const alert Constitutional Narrative: Up in the chair General Appearance: anxious, ill appearing Positive for acutely and on BiPAP Nutritional Appearance: obese HEENT head/scalp atraumatic Head and Scalp: normocephalic Eyes PERRL, EOMs intact bilaterally and no scleral icterus Neck full ROM Lymph Lymphatic: lymphadenopathy Lymphadenopathy Laterality: bilateral Chest Chest: abnormal inspection of the chest barrel chest and symmetrical chest wall rise; Negative for crepitus Resp no retractions Effort and Inspection: tachypneic and prolonged expiratory phase Auscultation: diminished lung sounds; Negative for rales, rhonchi or wheezes Cardio regular rate, S1 normal heart sound, S2 normal heart sound, no murmurs, no rub and no gallops Rhythm: abnormal rhythm irregularly irregular GI soft to palpation, non-tender and non-distended Inspection: Negative for abdominal distention Palpation: tender suprapubic; Negative for guarding or ascites no CVA tenderness Extremity no clubbing, cyanosis or edema Skin no rashes or lesions noted Skin Narrative: Dermal atrophy appreciated Neuro oriented x3, CN's II-XII intact bilaterally and moves all extremities Psych cooperative Activity / Motor Behavior: restless Mood & Affect: anxious Charges/Coding Visit Charges Inpatient E&M: 30349 Subs Hosp L3 Multi Select Codes Hospitalists' Procedures Procedures: 14196 Critial Care 1st Hr
--- NOTE | 2021-02-03 10:16 | PN.HOSP_ITS ---
Subjective Subjective Wants ice chips. Tolerating Airvo. Objective Data Objective Data Vital Signs: Vital Signs Temp Pulse Resp BP Pulse Ox 36.3 C L 61 22 H 124/73 H 92 02/03/21 04:00 02/03/21 08:00 02/03/21 08:00 02/03/21 07:00 02/03/21 08:00 Oxygen Flow Rate (L/min) 60 Oxygen Delivery Method Airvo Weight: 92.4 kg Body Mass Index (BMI) 29.2 Intake & Output: Intake and Output for Last 24 Hours 02/01/21 02/02/21 02/03/21 23:59 23:59 23:59 Intake Total 1680.88 / 1692.38 840.51 / 852.01 69.00 / 69.00 Output Total 775 / 775 1600 / 1600 650 / 650 Balance 905.88 / 917.38 -759.49 / -747.99 -581.00 / -581.00 Medical Nutrition Assessment Dietitian: Malnutrition Criteria Met Start: 01/30/21 12:20 Freq: Status: Active Protocol: Document 01/30/21 12:22 AG (Rec: 01/30/21 12:22 [id number]) Nutrition Malnutrition Evidence of Malnutrition Exists Yes Malnutrition (severe): Acute Illness/Injury Evidenced By Suboptimal Energy Intake ( Severe),Weight Loss (Severe) Clinical Problem Acute Disease or Injury Related Malnutrition Etiology severe, acute malnutrition r/t inadequate energy intake w/ acute COVID illness Signs/Symptoms as evidenced by reported decreased PO intake estimated to be meeting <50% of estimated nutritional needs x1 week [employer]CHITECT, 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 Lab / Micro Data Result Diagrams: 02/03/21 03:00 02/03/21 03:00 Labs: Laboratory Results - last 24 hr 02/03/21 03:00: WBC 9.5, RBC 5.64, Hgb 16.2, Hct 49.7, MCV 88.1, MCH 28.7, MCHC 32.6, RDW Std Deviation 44.4 H, RDW Coeff of Kaylee 13.8, Plt Count 192, MPV 10.8, Immature Gran % (Auto) 0.900, Neut % (Auto) 86.5 H, Lymph % (Auto) 6.7 L, [place] % (Auto) 5.6, Eos % (Auto) 0.0, Baso % (Auto) 0.3, Absolute Neuts (auto) 8.2 H, Absolute Lymphs (auto) 0.64 L, Nucleated RBC % 0 02/03/21 03:00: Sodium 142, Potassium 4.3, Chloride 110 H, Carbon Dioxide 25.0, Anion Gap 7, BUN 55 H, Creatinine 1.10, Estim Creat Clear Calc 62.68, Est GFR (MDRD) Af Amer 85, Est GFR (MDRD) Non-Af 70, BUN/Creatinine Ratio 50.0 H, Glucose 176 H, Calcium 8.5, Total Bilirubin 0.50, AST 34, ALT 32, Alkaline Phosphatase 79, Total Protein 7.0, Albumin 2.4 L, Globulin 4.6 H, Albumin/Globulin Ratio 0.5 L Micro: Microbiology 01/30/21 10:45 Sputum, Expectorated/Coughed Gram Stain - Final 01/30/21 10:45 Sputum, Expectorated/Coughed Respiratory Culture - Final Streptococcus group G 01/29/21 18:40 Blood Culture (Wb) - Anticubital Right Blood Culture - Preliminary No growth in 48 hours. 01/29/21 18:30 Blood Culture (Wb) - Anticubital Left Blood Culture - Preliminary No growth in 48 hours. 01/30/21 00:19 Urine, Clean Catch Streptococcus pneumoniae Antigen (M - Final 01/30/21 00:19 Urine, Clean Catch Legionella Antigen - Final 01/30/21 02:00 Mucosa - Nasopharyngeal Respiratory Panel (PCR) - Final 01/29/21 20:15 Nasal Secretion SARS-CoV-2 Antigen (Rapid) - Final SARS-CoV-2 (COVID 19) Physical Exam Const alert and no apparent distress Resp normal respiratory effort and no retractions Resp Narrative: coarse BS Cardio regular rate, regular rhythm, S1 normal heart sound and S2 normal heart sound GI normal to inspection, nondistended, normoactive bowel sounds, soft to palpation, non-tender and non-distended Extremity normal to inspection Assessment & Plan Assessment/Plan (1) Pneumonia due to COVID-19 virus: (2) Acute respiratory failure with hypoxia: PLAN: 1. acute hypoxic respiratory failure continues to worsen 2/2 COVID 19 and Strep pneumonia increased FiO2 requirements. now on BiPAP verified code status--DNRCCA, no intubation. I explained to urgency for intubation at this time resp panel, strep Ag, leg Ag negative, SCx so far negative. 02/01: transfer to ICU. [facility] consult. 2. Acute COVID 19 pneumonia unvaccinated onset 01/21, quarantine through 02/09 on dex, rem-d, baricitinib 3. Streptococcal pneumonia on CTX 4. metabolic encephalopathy resolved 2/2 hypoxia and COVID 19, no additional work up at this time 5. Recent left retinal arterial occlusion may be due pafib 6. Pafib on apixaban metoprolol succinate 7. VTE prophylaxis: not indicated. Charges/Coding Visit Charges Inpatient E&M: 88473 Subs Hosp L2
[2021-02-03] MEDS: CHLORHEXIDINE GLUC 2% CLOTH 1 EACH TOWELETTE TOPICAL (10:30)
[2021-02-03] MEDS: APIXABAN 5 MG TABLET PO ×2 (10:39→20:13)
[2021-02-03] MEDS: dexAMETHasone 4 MG/ML Vial 6 MG IV (10:40)
[2021-02-03] MEDS: Levothyroxine 112 MCG Tablet PO (10:40)
[2021-02-03] MEDS: Senna/Docusate Sodium 1 Tablet 2 TABLET PO ×2 (10:43→20:12)
[2021-02-03] MEDS: prednisoLONE eye drops (5 mL) 1 DROP OPTH.BTL 1 DRP LEFT EYE ×4 (10:47→20:14)
[2021-02-03] MEDS: Etomidate 20 MG/10 ML Vial IV (15:50)
--- NOTE | 2021-02-03 15:51 | NURSING ---
etom 20 , # 8 et tube inserted 25 lip color change,, og inserted,
[2021-02-03] MEDS: Propofol 10MG/Ml 1,000 MG/100 ML Bottle 22.2 MG CONT INF ×2 (16:00→21:10)
--- NOTE | 2021-02-03 16:00 | RAD_ITS ---
STUDY: X-RAY CHEST REASON FOR EXAM: Male, 70 years old. et tube placement TECHNIQUE: Frontal view COMPARISON: 02/01/2021. FINDINGS: Nasogastric tube in the stomach. Endotracheal tube with tip 35 mm above the will. The lungs are not fully expanded. Bibasilar infiltrate/atelectasis. Normal size heart. Normal mediastinum and german. Normal visualized pulmonary arteries. Normal visualized aortic arch and descending thoracic aorta. Degenerative changes of the thoracic spine. Normal visualized ribs, clavicles, and shoulders. There is no demonstrated abnormality of the visualized soft tissue structures of the upper abdomen. RAD/Chest 1 View (Portable) IMPRESSION: Bibasilar infiltrate/atelectasis. Electronically Signed: Malik Sabillon DO at 16:34 EST Tel [phone], Service support ,
--- NOTE | 2021-02-03 16:03 | NURSING ---
succinycholine [address] willett
--- NOTE | 2021-02-03 16:06 | NURSING ---
portable chest xray completed
[2021-02-03 17:41] LABS: Allen Test Positive; Base Excess -2 mmol/L (-2 to +2); Bicarbonate 23.5 mmol/L (22-26); Blood Gas Specimen Type ART; FI02 100; Mode AC; O2 Delivery Device Adult Vent; PEEP 8; PO2 66 mmHG (75-100); RR 14; SITE R Radial; SO2 92 % (95-99); Total Carbon Dioxide 25 mmol/L; Vt 450; pCO2 40.8 mmHg (35-45); pH 7.37 (7.35-7.45)
[2021-02-03 18:02] LABS: CPK Total, Creatine Kinase 110 U/L (39-308); Triglycerides 56 mg/dL
[2021-02-03] MEDS: Atorvastatin Calcium 40 MG Tablet PO (20:13)
[2021-02-03] MEDS: Dexmedetomidine 1,000 mcg in 0.9% NS 240 mL 34.7 MCG CONT INF (23:00)
[2021-02-04] VITALS (35 sets, daily range): BP systolic 93–118; BP diastolic 56–78; PULSE 62–76; RESP 12–71; TEMP 38.1–38.6; O2SAT 90–95
[2021-02-04] MEDS: Acetaminophen 650 MG/20 ML UDC PO ×4 (01:00→20:11)
[2021-02-04] MEDS: Ipratropium/Albuterol Sulfate 3 ML AMPUL.NEB INHALATION ×4 (01:40→19:21)
[2021-02-04] MEDS: Propofol 10MG/Ml 1,000 MG/100 ML Bottle 22.2 MG CONT INF (01:50)
[2021-02-04] MEDS: CHLORHEXIDINE GLUC 2% CLOTH 1 EACH TOWELETTE TOPICAL ×2 (02:56→10:11)
[2021-02-04 04:01] LABS: Absolute Lymphocyte Count 0.27 X10^3/uL (0.83-4.51); Absolute Neutrophil Count 10.9 X10^3/uL (2.0-7.7); Basophil# 0.02 X10^3/uL; Basophil% 0.2 % (0-1); Hematocrit 49.3 % (40-54); Hemoglobin 15.5 g/dL (13.0-16.5); Lymphocyte # 0.27 X10^3/ul (0.83-4.51); Lymphocyte % 2.3 % (19-41); Mean Corp Hgb Conc 31.4 g/dL (32-36); Mean Corpuscular Hgb 28.2 pg (27.0-32.0); Mean Corpuscular Volume 89.6 fL (80-94); Mean Platelet Vol. 10.7 fl (6.2-12.0); Monocyte# 0.53 X10^3/uL; Monocyte% 4.5 % (0-10); NRBC Flagged by Analyzer 0 % (0-5); Neutrophil # 10.89 X10^3/uL (2.7-7.7); Neutrophil % 92.2 % (47-70); POSITIVE DIFFERENTIAL YES; Platelet Count 160 K/mm3 (150-450); RBC Distribution Width CV 14.1 % (11.6-14.6); RBC Distribution Width SD 46.2 fl (35.1-43.9); White Blood Count 11.8 K/mm3 (4.4-11.0)
[2021-02-04 04:10] LABS: Differential Indicated SCAN CRITERIA MET
[2021-02-04 04:26] LABS: Anion Gap 7 (5-15); BUN 44 mg/dL (7-18); BUN/Creat Ratio 37.3 RATIO (10-20); Chloride 111 mmol/L (98-107); Creatinine, Serum 1.18 mg/dL (0.70-1.30); EST Glomerular Filtration Rate 65 mL/min (>60); Est Glom Filt Rate - Afr Amer 78 mL/min (>60); Estimated Creatinine Clearance 58.43 ml/min; Glucose 219 mg/dL (74-106); Potassium 5.1 mmol/L (3.5-5.1); Sodium Level 143 mmol/L (136-145)
[2021-02-04] MEDS: Dorzolamide 2% 10ml Bottle 1 DRP OPHTHALMIC ×3 (05:24→22:04)
[2021-02-04 06:17] LABS: Differential Comment SCANNED
[2021-02-04] MEDS: Propofol 10MG/Ml 1,000 MG/100 ML Bottle 16.6 MG CONT INF ×2 (07:10→14:03)
--- NOTE | 2021-02-04 07:13 | PN.CC_ITS ---
Assessment & Plan Assessment/Plan (1) Acute respiratory failure with hypoxia: (2) Pneumonia due to COVID-19 virus: (3) Stenosis of left internal carotid artery: (4) Chronic kidney disease (CKD): (5) Obstructive sleep apnea: PLAN: RECOMMENDATIONS: 1. Completed Remdesivir and Decadron. Continue baricitinib (02/12/2021) as ordered 2. Continue to titrate sedation to goal RASS 3. Spontaneous breathing and awakening trials per protocol. Wean oxygen and PEEP to maintain sats greater than 90% 4. Hold baseline ARB. Diuresis as needed for euvolemia 5. Likely challenge with diuretics tomorrow IMPRESSIONS: 1. Acute hypoxic respiratory failure secondary to COVID-19 High clinical suspicion for concomitant COPD given increased AP diameter and diminished breath sounds. Will initiate patient on bronchodilators with DuoNeb. Patient is on maximal therapy for COVID-19. Chest x-ray yesterday showed some improvement in infiltrates. Initial infiltrates were not very suggestive of this level of hypoxia. Patient did have continued elevation of both hemidiaphragms on chest x-ray. Patient with agitation on BiPAP therapy ultimately leading to intubation on 02/03/2021. We will continue to wean FiO2 and PEEP as tolerated. Spontaneous breathing trials per protocol. Likely challenge with diuretics tomorrow. 2. Acute kidney injury on CKD stage III Improving. Patient with a creatinine of 1.36 in December. Diuretics and ARB have been held. No indication for renal replacement therapy at this time. Will attempt diuresis intermittently. 3. Recent retinal artery occlusion/paroxysmal A. fib/nonvaccinated status/advanced age Complicates care, management, recovery and prognosis. Patient has been on anticoagulation, so concomitant PE is unlikely. Okay to continue with metoprolol. If patient does develop a pneumomediastinum, rate may be difficult to control. Rate is well controlled at this time. TIME: 32 minutes of critical care time was spent addressing patient's acute hypoxic respiratory failure, review of all data and collaboration with care team Subjective Subjective Patient did okay overnight. Patient was intubated yesterday afternoon without complication. Patient is still requiring significant sedation to maintain ventilator synchrony. Objective Data Objective Data Vital Signs: Vital Signs Temp Pulse Resp BP Pulse Ox 38.4 C H 72 13 103/68 92 02/04/21 04:00 02/04/21 07:01 02/04/21 07:01 02/04/21 07:00 02/04/21 07:01 Oxygen Flow Rate (L/min) 60 Oxygen Delivery Method Mechanical Ventilator Weight: 91.1 kg Body Mass Index (BMI) 29.2 Intake & Output: Intake and Output for Last 24 Hours 02/02/21 02/03/21 02/04/21 23:59 23:59 23:59 Intake Total 840.51 / 852.01 843.92 / 970.82 570.34 / 570.34 Output Total 1600 / 1600 1350 / 1675 450 / 450 Balance -759.49 / -747.99 -506.08 / -704.18 120.34 / 120.34 Medical Nutrition Assessment Dietitian: Malnutrition Criteria Met Start: 01/30/21 12:20 Freq: Status: Active Protocol: Document 02/03/21 11:44 RMA (Rec: 02/03/21 11:45 RMA [id number]) Nutrition Malnutrition Evidence of Malnutrition Exists Yes Malnutrition (severe): Acute Illness/Injury Evidenced By Suboptimal Energy Intake ( Severe),Weight Loss (Severe) Intake Problem Inadequate Oral Intake Etiology r/t resp. failure Signs/Symptoms as evidenced by no PO intake x 2 days Status Active Problem Clinical Problem Acute Disease or Injury Related Malnutrition Etiology severe, acute malnutrition r/t inadequate energy intake w/ acute COVID illness Signs/Symptoms as evidenced by reported decreased PO intake estimated to be meeting <50% of estimated nutritional needs x1 week [employer], unintentional wt loss of 12.8#/6% wt loss x 1 month Status Active Problem Recommendation Dietitian Recommendations/Changes Will order Clear liquid diet w / ensure clear as per verbal order Dr. Sierra in rounds today. Recommend advance PO diet as tolerated to regular, no added salt diet. Adjust ONS as diet advanced to solid food. Lab / Micro Data Result Diagrams: 02/04/21 03:55 02/04/21 03:55 Labs: Laboratory Results - last 24 hr 02/03/21 03:00: Total Creatine Kinase 110, Triglycerides 56 02/04/21 03:55: Sodium 143, Potassium 5.1, Chloride 111 H, Carbon Dioxide 25.0, Anion Gap 7, BUN 44 H, Creatinine 1.18, Estim Creat Clear Calc 58.43, Est GFR (MDRD) Af Amer 78, Est GFR (MDRD) Non-Af 65, BUN/Creatinine Ratio 37.3 H, Glucose 219 H, Calcium 8.0 L 02/04/21 03:55: WBC 11.8 H, RBC 5.50, Hgb 15.5, Hct 49.3, MCV 89.6, MCH 28.2, MCHC 31.4 L, RDW Std Deviation 46.2 H, RDW Coeff of Kaylee 14.1, Plt Count 160, MPV 10.7, Immature Gran % (Auto) 0.800, Neut % (Auto) 92.2 H, Lymph % (Auto) 2.3 L, [place] % (Auto) 4.5, Eos % (Auto) 0.0, Baso % (Auto) 0.2, Absolute Neuts (auto) 10.9 H, Absolute Lymphs (auto) 0.27 L, Nucleated RBC % 0, Differential Comment SCANNED Micro: Microbiology 01/29/21 18:30 Blood Culture (Wb) - Anticubital Left Blood Culture - Final No growth in 5 days. 01/29/21 18:40 Blood Culture (Wb) - Anticubital Right Blood Culture - Final No growth in 5 days. 01/30/21 10:45 Sputum, Expectorated/Coughed Gram Stain - Final 01/30/21 10:45 Sputum, Expectorated/Coughed Respiratory Culture - Final Streptococcus group G 01/30/21 00:19 Urine, Clean Catch Streptococcus pneumoniae Antigen (M - Final 01/30/21 00:19 Urine, Clean Catch Legionella Antigen - Final 01/30/21 02:00 Mucosa - Nasopharyngeal Respiratory Panel (PCR) - Final 01/29/21 20:15 Nasal Secretion SARS-CoV-2 Antigen (Rapid) - Final SARS-CoV-2 (COVID 19) ABG Data ABG results: ABG 02/03/21 17:34 Specimen Type ART Sample Site R Radial pH 7.37 Bicarbonate Actual 23.5 Total CO2 25 Base Excess -2 O2 Saturation 92 L O2 % 100 ABG pCO2 40.8 ABG pO2 66 L Pranay Test Positive Respiration Rate 14 O2 Delivery Device Adult Vent Vent Mode AC Tidal Volume 450 POC PEEP 8 Radiography Diagnostic Testing: Radiology Impression Chest X-Ray 02/03/21 16:00 IMPRESSION: Bibasilar infiltrate/atelectasis. Electronically Signed: Malik Sabillon DO at 16:34 EST Tel [phone], Service support , Physical Exam Const alert Constitutional Narrative: Good vent synchrony General Appearance: ill appearing Positive for acutely, intubated and patient mechanically ventilated Nutritional Appearance: obese HEENT head/scalp atraumatic Head and Scalp: normocephalic Eyes PERRL, EOMs intact bilaterally and no scleral icterus Neck full ROM Lymph Lymphatic: lymphadenopathy Lymphadenopathy Laterality: bilateral Chest Chest: abnormal inspection of the chest barrel chest and symmetrical chest wall rise; Negative for crepitus Resp no retractions Effort and Inspection: prolonged expiratory phase Auscultation: diminished lung sounds; Negative for rales, rhonchi or wheezes Cardio regular rate, S1 normal heart sound, S2 normal heart sound, no murmurs, no rub and no gallops Rhythm: abnormal rhythm irregularly irregular GI soft to palpation, non-tender and non-distended Inspection: Negative for abdominal distention Palpation: tender suprapubic; Negative for guarding or ascites no CVA tenderness Extremity no clubbing, cyanosis or edema Skin no rashes or lesions noted Skin Narrative: Dermal atrophy appreciated Neuro oriented x3, CN's II-XII intact bilaterally and moves all extremities Psych cooperative Activity / Motor Behavior: restless Mood & Affect: anxious Charges/Coding Procedures Hospitalists Procedures: 03960 Critial Care 1st Hr
[2021-02-04] MEDS: Levothyroxine 112 MCG Tablet PO (08:34)
[2021-02-04] MEDS: Metoprolol(XL)Succ 25 MG Tablet PO (08:34)
[2021-02-04] MEDS: Senna/Docusate Sodium 1 Tablet 2 TABLET PO ×2 (08:34→22:02)
[2021-02-04] MEDS: dexAMETHasone 4 MG/ML Vial 6 MG IV (08:35)
[2021-02-04] MEDS: prednisoLONE eye drops (5 mL) 1 DROP OPTH.BTL 1 DRP LEFT EYE ×4 (08:35→22:05)
[2021-02-04] MEDS: APIXABAN 5 MG TABLET PO ×2 (08:35→22:02)
[2021-02-04] MEDS: Dexmedetomidine 1,000 mcg in 0.9% NS 240 mL 18.5 MCG CONT INF (09:59)
[2021-02-04] MEDS: Chlorhexidine 15 ML PO ×2 (10:11→22:01)
--- NOTE | 2021-02-04 11:58 | PCM.PN.HOSP ---
Subjective Subjective Intubated yesterday. Objective Data Objective Data Vital Signs: Vital Signs Temp Pulse Resp BP Pulse Ox 38.5 C H 67 19 H 94/58 L 91 02/04/21 10:00 02/04/21 11:15 02/04/21 11:15 02/04/21 11:00 02/04/21 11:15 Oxygen Flow Rate (L/min) 60 Oxygen Delivery Method Mechanical Ventilator Weight: 91.1 kg Body Mass Index (BMI) 29.2 Intake & Output: Intake and Output for Last 24 Hours 02/02/21 02/03/21 02/04/21 23:59 23:59 23:59 Intake Total 840.51 / 852.01 843.92 / 970.82 837.89 / 837.89 Output Total 1600 / 1600 1350 / 1675 675 / 675 Balance -759.49 / -747.99 -506.08 / -704.18 162.89 / 162.89 Medical Nutrition Assessment Dietitian: Malnutrition Criteria Met Start: 01/30/21 12:20 Freq: Status: Active Protocol: Document 02/03/21 11:44 RMA (Rec: 02/03/21 11:45 RMA [id number]) Nutrition Malnutrition Evidence of Malnutrition Exists Yes Malnutrition (severe): Acute Illness/Injury Evidenced By Suboptimal Energy Intake ( Severe),Weight Loss (Severe) Intake Problem Inadequate Oral Intake Etiology r/t resp. failure Signs/Symptoms as evidenced by no PO intake x 2 days Status Active Problem Clinical Problem Acute Disease or Injury Related Malnutrition Etiology severe, acute malnutrition r/t inadequate energy intake w/ acute COVID illness Signs/Symptoms as evidenced by reported decreased PO intake estimated to be meeting <50% of estimated nutritional needs x1 week INJURY/SAFETY HAZARD ASSESSMENT, unintentional wt loss of 12.8#/6% wt loss x 1 month Status Active Problem Recommendation Dietitian Recommendations/Changes Will order Clear liquid diet w / ensure clear as per verbal order Dr. Sierra in rounds today. Recommend advance PO diet as tolerated to regular, no added salt diet. Adjust ONS as diet advanced to solid food. Lab / Micro Data Result Diagrams: 02/04/21 03:55 02/04/21 03:55 Labs: Laboratory Results - last 24 hr 02/03/21 03:00: Total Creatine Kinase 110, Triglycerides 56 02/04/21 03:55: Sodium 143, Potassium 5.1, Chloride 111 H, Carbon Dioxide 25.0, Anion Gap 7, BUN 44 H, Creatinine 1.18, Estim Creat Clear Calc 58.43, Est GFR (MDRD) Af Amer 78, Est GFR (MDRD) Non-Af 65, BUN/Creatinine Ratio 37.3 H, Glucose 219 H, Calcium 8.0 L 02/04/21 03:55: WBC 11.8 H, RBC 5.50, Hgb 15.5, Hct 49.3, MCV 89.6, MCH 28.2, MCHC 31.4 L, RDW Std Deviation 46.2 H, RDW Coeff of Kaylee 14.1, Plt Count 160, MPV 10.7, Immature Gran % (Auto) 0.800, Neut % (Auto) 92.2 H, Lymph % (Auto) 2.3 L, [place] % (Auto) 4.5, Eos % (Auto) 0.0, Baso % (Auto) 0.2, Absolute Neuts (auto) 10.9 H, Absolute Lymphs (auto) 0.27 L, Nucleated RBC % 0, Differential Comment SCANNED Micro: Microbiology 02/03/21 16:10 Sputum, Expectorated/Coughed Respiratory Culture - Preliminary Culture exhibits no growth. 01/29/21 18:30 Blood Culture (Wb) - Anticubital Left Blood Culture - Final No growth in 5 days. 01/29/21 18:40 Blood Culture (Wb) - Anticubital Right Blood Culture - Final No growth in 5 days. 01/30/21 10:45 Sputum, Expectorated/Coughed Gram Stain - Final 01/30/21 10:45 Sputum, Expectorated/Coughed Respiratory Culture - Final Streptococcus group G 01/30/21 00:19 Urine, Clean Catch Streptococcus pneumoniae Antigen (M - Final 01/30/21 00:19 Urine, Clean Catch Legionella Antigen - Final 01/30/21 02:00 Mucosa - Nasopharyngeal Respiratory Panel (PCR) - Final 01/29/21 20:15 Nasal Secretion SARS-CoV-2 Antigen (Rapid) - Final SARS-CoV-2 (COVID 19) ABG Data ABG results: ABG 02/03/21 17:34 Specimen Type ART Sample Site R Radial pH 7.37 Bicarbonate Actual 23.5 Total CO2 25 Base Excess -2 O2 Saturation 92 L O2 % 100 ABG pCO2 40.8 ABG pO2 66 L Pranay Test Positive Respiration Rate 14 O2 Delivery Device Adult Vent Vent Mode AC Tidal Volume 450 POC PEEP 8 Radiography Diagnostic Testing: Radiology Impression Chest X-Ray 02/03/21 16:00 IMPRESSION: Bibasilar infiltrate/atelectasis. Electronically Signed: Malik Sabillon, DO at 16:34 EST Tel [phone], Service support , Physical Exam Const Constitutional Narrative: intubated and sedated Resp Resp Narrative: coarse BS bilaterally Cardio regular rate, regular rhythm, S1 normal heart sound and S2 normal heart sound Extremity normal to inspection Assessment & Plan Assessment/Plan (1) Pneumonia due to COVID-19 virus: (2) Acute respiratory failure with hypoxia: PLAN: 1. acute hypoxic respiratory failure continues to worsen 2/2 COVID 19 and Strep pneumonia verified code status--DNRCCA, no intubation. I explained to urgency for intubation at this time resp panel, strep Ag, leg Ag negative, SCx so far negative. 02/01: transfer to ICU. CCM consult. 02/03: intubted 02/04: requiring propofol, fentanyl and dexmedetomidine gtt for sedation 2. Acute COVID 19 pneumonia unvaccinated onset 01/21, quarantine through 02/09 on dex and baricitinib remdesivir completed 3. Streptococcal pneumonia on CTX 4. metabolic encephalopathy resolved 2/2 hypoxia and COVID 19, no additional work up at this time 5. Recent left retinal arterial occlusion may be due pafib 6. Pafib on apixaban metoprolol succinate 7. VTE prophylaxis: not indicated. Charges/Coding Visit Charges Inpatient E&M: 78911 Subs Hosp L2
[2021-02-04] MEDS: Vital High Protein 1,000 ML 20 ML GT (15:03)
--- NOTE | 2021-02-04 21:44 | NURSING ---
titration of propofol not accurate. Stating bottle is infused but actually about 50% still remains. Unsure of cause for error.
[2021-02-04] MEDS: Atorvastatin Calcium 40 MG Tablet PO (22:02)
[2021-02-04] MEDS: Dexmedetomidine 1,000 mcg in 0.9% NS 240 mL 16.2 MCG CONT INF (23:29)
[2021-02-05] VITALS (35 sets, daily range): BP systolic 87–109; BP diastolic 59–73; PULSE 63–88; RESP 12–21; TEMP 37.4–38.9; O2SAT 84–95
[2021-02-05] MEDS: Propofol 10MG/Ml 1,000 MG/100 ML Bottle 11.1 MG CONT INF ×2 (00:10→04:07)
[2021-02-05] MEDS: CHLORHEXIDINE GLUC 2% CLOTH 1 EACH TOWELETTE TOPICAL ×2 (00:26→08:32)
[2021-02-05] MEDS: Ipratropium/Albuterol Sulfate 3 ML AMPUL.NEB INHALATION ×4 (01:33→19:19)
[2021-02-05 02:56] LABS: Absolute Lymphocyte Count 0.27 X10^3/uL (0.83-4.51); Absolute Neutrophil Count 9.3 X10^3/uL (2.0-7.7); Basophil# 0.01 X10^3/uL; Basophil% 0.1 % (0-1); Hematocrit 48.5 % (40-54); Hemoglobin 15.2 g/dL (13.0-16.5); Lymphocyte # 0.27 X10^3/ul (0.83-4.51); Lymphocyte % 2.6 % (19-41); Mean Corp Hgb Conc 31.3 g/dL (32-36); Mean Corpuscular Hgb 28.3 pg (27.0-32.0); Mean Corpuscular Volume 90.3 fL (80-94); Mean Platelet Vol. 11.2 fl (6.2-12.0); Monocyte# 0.59 X10^3/uL; Monocyte% 5.7 % (0-10); NRBC Flagged by Analyzer 0 % (0-5); Neutrophil % 90.5 % (47-70); POSITIVE DIFFERENTIAL YES; Platelet Count 149 K/mm3 (150-450); RBC Distribution Width CV 14.2 % (11.6-14.6); RBC Distribution Width SD 46.7 fl (35.1-43.9); Red Blood Count 5.37 M/mm3 (4.6-6.2); White Blood Count 10.3 K/mm3 (4.4-11.0)
[2021-02-05 03:06] LABS: Differential Indicated SCAN CRITERIA MET
[2021-02-05 03:14] LABS: Anion Gap 5 (5-15); BUN 41 mg/dL (7-18); BUN/Creat Ratio 34.5 RATIO (10-20); Calcium,Total 8.3 mg/dL (8.5-10.1); Chloride 111 mmol/L (98-107); Creatinine, Serum 1.19 mg/dL (0.70-1.30); EST Glomerular Filtration Rate 64 mL/min (>60); Est Glom Filt Rate - Afr Amer 77 mL/min (>60); Estimated Creatinine Clearance 57.94 ml/min; Glucose 242 mg/dL (74-106); Potassium 4.6 mmol/L (3.5-5.1); Sodium Level 141 mmol/L (136-145)
[2021-02-05] MEDS: Furosemide 40 MG/4 ML Vial IV (06:11)
[2021-02-05] MEDS: Dorzolamide 2% 10ml Bottle 1 DRP OPHTHALMIC ×3 (06:11→22:47)
--- NOTE | 2021-02-05 06:41 | PCM.PN.INT ---
Assessment & Plan Assessment/Plan (1) Acute respiratory failure with hypoxia: (2) Pneumonia due to COVID-19 virus: (3) Stenosis of left internal carotid artery: (4) Chronic kidney disease (CKD): (5) Obstructive sleep apnea: PLAN: RECOMMENDATIONS: 1. Completed Remdesivir and Decadron. Continue baricitinib (02/12/2021) as ordered 2. Continue to titrate sedation to goal RASS 3. Spontaneous breathing and awakening trials per protocol. Wean oxygen and PEEP to maintain sats greater than 90% 4. Hold baseline ARB. Diuresis as needed for euvolemia 5. Challenge with diuretics IMPRESSIONS: 1. Acute hypoxic respiratory failure secondary to COVID-19 High clinical suspicion for concomitant COPD given increased AP diameter and diminished breath sounds. Will initiate patient on bronchodilators with DuoNeb. Patient is on maximal therapy for COVID-19. Chest x-ray yesterday showed some improvement in infiltrates. Initial infiltrates were not very suggestive of this level of hypoxia. Patient did have continued elevation of both hemidiaphragms on chest x-ray. Patient with agitation on BiPAP therapy ultimately leading to intubation on 02/03/2021. We will continue to wean FiO2 and PEEP as tolerated. Spontaneous breathing trials per protocol. We will challenge with diuretics today. Post intubation sputum is not showing any significant bacterial load. Patient chronically on anticoagulation, so PE unlikely 2. Acute kidney injury on CKD stage III Improving. Patient with a creatinine of 1.36 in December. Diuretics and ARB have been held. No indication for renal replacement therapy at this time. Will attempt diuresis intermittently. 3. Recent retinal artery occlusion/paroxysmal A. fib/nonvaccinated status/advanced age Complicates care, management, recovery and prognosis. Patient has been on anticoagulation, so concomitant PE is unlikely. Okay to continue with metoprolol. If patient does develop a pneumomediastinum, rate may be difficult to control. Rate is well controlled at this time. TIME: 35 minutes of critical care time was spent addressing patient's acute hypoxic respiratory failure, review of all data and collaboration with care team Subjective Subjective Patient did okay overnight. Patient did have significant fever, but remained hemodynamically stable. Patient continues to be difficult to sedate requiring propofol, Precedex and fentanyl. Patient has been placed on tube feeds and is tolerating. Objective Data Objective Data Vital Signs: Vital Signs Temp Pulse Resp BP Pulse Ox 38.3 C H 67 18 101/59 L 90 02/05/21 03:00 02/05/21 05:05 02/05/21 05:05 02/05/21 03:00 02/05/21 05:05 Oxygen Flow Rate (L/min) 60 Oxygen Delivery Method Mechanical Ventilator Weight: 90.5 kg Body Mass Index (BMI) 29.2 Intake & Output: Intake and Output for Last 24 Hours 02/03/21 02/04/21 02/05/21 23:59 23:59 23:59 Intake Total 843.92 / 970.82 1572.18 / 2238.23 1269.50 / 1269.50 Output Total 1350 / 1675 1125 / 1550 675 / 675 Balance -506.08 / -704.18 447.18 / 688.23 594.50 / 594.50 Medical Nutrition Assessment Dietitian: Malnutrition Criteria Met Start: 01/30/21 12:20 Freq: Status: Active Protocol: Document 02/04/21 13:30 RMA (Rec: 02/04/21 13:31 RMA [id number]) Nutrition Malnutrition Evidence of Malnutrition Exists Yes Malnutrition (severe): Acute Illness/Injury Evidenced By Suboptimal Energy Intake ( Severe),Weight Loss (Severe) Intake Problem Inadequate Oral Intake Etiology r/t resp. failure, increased oxygen needs and need for intubation Signs/Symptoms as evidenced by NPO and need for TF support Status Active Problem Clinical Problem Acute Disease or Injury Related Malnutrition Etiology severe, acute malnutrition r/t inadequate energy intake w/ acute COVID illness Signs/Symptoms as evidenced by reported decreased PO intake estimated to be meeting <50% of estimated nutritional needs x1 week [employer] DUSTING, unintentional wt loss of 12.8#/6% wt loss x 1 month Status Active Problem Recommendation Dietitian Recommendations/Changes NPO; Will order TF to start with Vital HP @ 20 ml/hr and increase as tolerated by 10ml/ hr Q 6-8 hours, advance until goal rate 50ml/hr achieved. Flush with 150ml water Q 4 hours. TF at goal and free water flushes will provide 1200kcal, 105 gm protein and 1903 ml free water per day. Will monitor TF tolerance as established, wt, labs and follow-up with need to adjust enteral nutrition support. Lab / Micro Data Result Diagrams: 02/05/21 02:30 02/05/21 02:30 Labs: Laboratory Results - last 24 hr 02/05/21 02:30: Sodium 141, Potassium 4.6, Chloride 111 H, Carbon Dioxide 25.0, Anion Gap 5, BUN 41 H, Creatinine 1.19, Estim Creat Clear Calc 57.94, Est GFR (MDRD) Af Amer 77, Est GFR (MDRD) Non-Af 64, BUN/Creatinine Ratio 34.5 H, Glucose 242 H, Calcium 8.3 L 02/05/21 02:30: WBC 10.3, RBC 5.37, Hgb 15.2, Hct 48.5, MCV 90.3, MCH 28.3, MCHC 31.3 L, RDW Std Deviation 46.7 H, RDW Coeff of Kaylee 14.2, Plt Count 149 L, MPV 11.2, Immature Gran % (Auto) 1.100 H, Neut % (Auto) 90.5 H, Lymph % (Auto) 2.6 L, [place] % (Auto) 5.7, Eos % (Auto) 0.0, Baso % (Auto) 0.1, Absolute Neuts (auto) 9.3 H, Absolute Lymphs (auto) 0.27 L, Nucleated RBC % 0 Micro: Microbiology 02/03/21 16:10 Sputum, Expectorated/Coughed Gram Stain - Final 02/03/21 16:10 Sputum, Expectorated/Coughed Respiratory Culture - Preliminary Culture exhibits no growth. 01/29/21 18:30 Blood Culture (Wb) - Anticubital Left Blood Culture - Final No growth in 5 days. 01/29/21 18:40 Blood Culture (Wb) - Anticubital Right Blood Culture - Final No growth in 5 days. 01/30/21 10:45 Sputum, Expectorated/Coughed Gram Stain - Final 01/30/21 10:45 Sputum, Expectorated/Coughed Respiratory Culture - Final Streptococcus group G 01/30/21 00:19 Urine, Clean Catch Streptococcus pneumoniae Antigen (M - Final 01/30/21 00:19 Urine, Clean Catch Legionella Antigen - Final 01/30/21 02:00 Mucosa - Nasopharyngeal Respiratory Panel (PCR) - Final 01/29/21 20:15 Nasal Secretion SARS-CoV-2 Antigen (Rapid) - Final SARS-CoV-2 (COVID 19) Physical Exam Const alert Constitutional Narrative: Good vent synchrony General Appearance: ill appearing Positive for acutely, intubated and patient mechanically ventilated Nutritional Appearance: obese HEENT head/scalp atraumatic Head and Scalp: normocephalic Eyes PERRL, EOMs intact bilaterally and no scleral icterus Neck full ROM Lymph Lymphatic: lymphadenopathy Lymphadenopathy Laterality: bilateral Chest Chest: abnormal inspection of the chest barrel chest and symmetrical chest wall rise; Negative for crepitus Resp no retractions Effort and Inspection: prolonged expiratory phase Auscultation: diminished lung sounds; Negative for rales, rhonchi or wheezes Cardio regular rate, S1 normal heart sound, S2 normal heart sound, no murmurs, no rub and no gallops Rhythm: abnormal rhythm irregularly irregular GI soft to palpation, non-tender and non-distended Inspection: Negative for abdominal distention Palpation: tender suprapubic; Negative for guarding or ascites no CVA tenderness Extremity no clubbing, cyanosis or edema Skin no rashes or lesions noted Skin Narrative: Dermal atrophy appreciated Neuro oriented x3, CN's II-XII intact bilaterally and moves all extremities Psych cooperative Activity / Motor Behavior: restless Mood & Affect: anxious Charges/Coding Procedures Hospitalists Procedures: [id number] Critial Care 1st Hr
[2021-02-05] MEDS: TITRATION PARAMETER CHANGE 1 EACH IV (06:55)
[2021-02-05] MEDS: Chlorhexidine 15 ML PO ×2 (08:31→22:45)
[2021-02-05] MEDS: prednisoLONE eye drops (5 mL) 1 DROP OPTH.BTL 1 DRP LEFT EYE ×4 (08:32→22:47)
[2021-02-05] MEDS: APIXABAN 5 MG TABLET PO ×2 (08:32→22:46)
[2021-02-05] MEDS: Metoprolol(XL)Succ 25 MG Tablet PO (08:33)
[2021-02-05] MEDS: Senna/Docusate Sodium 1 Tablet 2 TABLET PO ×2 (08:33→22:46)
[2021-02-05] MEDS: Propofol 10MG/Ml 1,000 MG/100 ML Bottle 10.9 MG CONT INF ×2 (13:01→21:51)
[2021-02-05] MEDS: Dexmedetomidine 1,000 mcg in 0.9% NS 240 mL 15.8 MCG CONT INF (13:02)
--- NOTE | 2021-02-05 13:31 | PN.HOSP_ITS ---
Subjective Subjective tolerating vent. Objective Data Objective Data Vital Signs: Vital Signs Temp Pulse Resp BP Pulse Ox 37.7 C H 71 18 96/64 95 02/05/21 11:00 02/05/21 12:00 02/05/21 11:00 02/05/21 11:00 02/05/21 11:00 Oxygen Flow Rate (L/min) 60 Oxygen Delivery Method Mechanical Ventilator Weight: 90.5 kg Body Mass Index (BMI) 29.2 Intake & Output: Intake and Output for Last 24 Hours 02/03/21 02/04/21 02/05/21 23:59 23:59 23:59 Intake Total 843.92 / 970.82 1572.18 / 2238.23 1975.58 / 1974.58 Output Total 1350 / 1675 1125 / 1550 2024 Balance -506.08 / -704.18 447.18 / 688.23 -49.42 / -49.42 Medical Nutrition Assessment Dietitian: Malnutrition Criteria Met Start: 01/30/21 12:20 Freq: Status: Active Protocol: Document 02/05/21 10:01 (Rec: 02/05/21 10:01 [id number]) Nutrition Malnutrition Evidence of Malnutrition Exists Yes Malnutrition (severe): Acute Illness/Injury Evidenced By Suboptimal Energy Intake ( Severe),Weight Loss (Severe) Intake Problem Inadequate Oral Intake Etiology r/t resp. 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 As ordered, enteral nutrition support meets 78% of estimated calorie, 100% estimated protein needs Lab / Micro Data Result Diagrams: 02/05/21 02:30 02/05/21 02:30 Labs: Laboratory Results - last 24 hr 02/05/21 02:30: Sodium 141, Potassium 4.6, Chloride 111 H, Carbon Dioxide 25.0, Anion Gap 5, BUN 41 H, Creatinine 1.19, Estim Creat Clear Calc 57.94, Est GFR (MDRD) Af Amer 77, Est GFR (MDRD) Non-Af 64, BUN/Creatinine Ratio 34.5 H, Glucose 242 H, Calcium 8.3 L 02/05/21 02:30: WBC 10.3, RBC 5.37, Hgb 15.2, Hct 48.5, MCV 90.3, MCH 28.3, MCHC 31.3 L, RDW Std Deviation 46.7 H, RDW Coeff of Kaylee 14.2, Plt Count 149 L, MPV 11.2, Immature Gran % (Auto) 1.100 H, Neut % (Auto) 90.5 H, Lymph % (Auto) 2.6 L , [place] % (Auto) 5.7, Eos % (Auto) 0.0, Baso % (Auto) 0.1, Absolute Neuts (auto) 9.3 H, Absolute Lymphs (auto) 0.27 L, Nucleated RBC % 0 Micro: Microbiology 02/03/21 16:10 Sputum, Expectorated/Coughed Gram Stain - Final 02/03/21 16:10 Sputum, Expectorated/Coughed Respiratory Culture - Preliminary Culture exhibits no growth. 01/29/21 18:30 Blood Culture (Wb) - Anticubital Left Blood Culture - Final No growth in 5 days. 01/29/21 18:40 Blood Culture (Wb) - Anticubital Right Blood Culture - Final No growth in 5 days. 01/30/21 10:45 Sputum, Expectorated/Coughed Gram Stain - Final 01/30/21 10:45 Sputum, Expectorated/Coughed Respiratory Culture - Final Streptococcus group G 01/30/21 00:19 Urine, Clean Catch Streptococcus pneumoniae Antigen (M - Emilee l 01/30/21 00:19 Urine, Clean Catch Legionella Antigen - Final 01/30/21 02:00 Mucosa - Nasopharyngeal Respiratory Panel (PCR) - Final 01/29/21 20:15 Nasal Secretion SARS-CoV-2 Antigen (Rapid) - Final SARS-CoV-2 (COVID 19) Physical Exam Const Constitutional Narrative: intubated. sedated Resp normal respiratory effort, no retractions, no use of accessory muscles and clear to auscultation bilaterally Cardio regular rate, regular rhythm, S1 normal heart sound and S2 normal heart sound GI normal to inspection, nondistended, normoactive bowel sounds, soft to palpation, non-tender and non-distended Assessment & Plan Assessment/Plan (1) Pneumonia due to COVID-19 virus: (2) Acute respiratory failure with hypoxia: PLAN: 1. acute hypoxic respiratory failure continues to worsen 2/2 COVID 19 and Strep pneumonia verified code status--DNRCCA, no intubation. I explained to urgency for intubat ion at this time resp panel, strep Ag, leg Ag negative, SCx so far negative. 02/01: transfer to ICU. CCM consult. 02/03: intubted 02/04: requiring propofol, fentanyl and dexmedetomidine gtt for sedation 2. Acute COVID 19 pneumonia unvaccinated onset 01/21, quarantine through 02/09 baricitinib through the remdesivir and dexamethasone completed 3. Streptococcal pneumonia on CTX 4. metabolic encephalopathy resolved 2/2 hypoxia and COVID 19, no additional work up at this time 5. Recent left retinal arterial occlusion may be due pafib 6. Pafib on apixaban metoprolol succinate 7. VTE prophylaxis: not indicated. Charges/Coding Visit Charges Inpatient E&M: 84213 Subs Hosp L2
[2021-02-05] MEDS: Vital High Protein 1,000 ML 65 ML GT (19:54)
--- NOTE | 2021-02-05 21:28 | NURSING ---
Propofol titration charted as running at 20mg/hr during previous shift, actually running at 30mg/hr when this RN started shift
[2021-02-05] MEDS: Acetaminophen 650 MG/20 ML UDC PO (22:46)
[2021-02-05] MEDS: Atorvastatin Calcium 40 MG Tablet PO (22:46)
[2021-02-06] VITALS (56 sets, daily range): BP systolic 69–135; BP diastolic 54–80; PULSE 77–90; RESP 11–23; TEMP 38.4–39.2; O2SAT 85–97
--- NOTE | 2021-02-06 00:58 | RAD_ITS ---
EXAM: XR CHEST, 1 VIEW CLINICAL INDICATION: checking for pneumo TECHNIQUE: Frontal view of the chest. This report was created using [employer] report generation technology. COMPARISON: Chest x-ray 02/03/2021 FINDINGS: See Impression. RAD/Chest 1 View (Portable) IMPRESSION: 1. No convincing evidence for pneumothorax. 2. Stable support devices. 3. Lung volumes are slightly lower in the interval with increasing subsegmental atelectasis at the bases. Bilateral multilobar airspace disease is otherwise grossly unchanged from before. 4. No other changes. Electronically Signed: Kevin Donnelly MD at 1:40 EST Tel , Service support ,
[2021-02-06] MEDS: Ipratropium/Albuterol Sulfate 3 ML AMPUL.NEB INHALATION ×4 (02:14→19:09)
[2021-02-06] MEDS: Propofol 10MG/Ml 1,000 MG/100 ML Bottle 10.9 MG CONT INF (05:13)
[2021-02-06] MEDS: Acetaminophen 650 MG/20 ML UDC PO ×3 (05:18→21:28)
[2021-02-06] MEDS: Dorzolamide 2% 10ml Bottle 1 DRP OPHTHALMIC ×3 (05:22→21:29)
[2021-02-06 05:40] LABS: Absolute Lymphocyte Count 0.57 X10^3/uL (0.83-4.51); Absolute Neutrophil Count 12.7 X10^3/uL (2.0-7.7); Basophil# 0.02 X10^3/uL; Basophil% 0.1 % (0-1); Eosinophil# 0.19 X10^3/uL; Eosinophils% 1.3 % (0-5); Hematocrit 49.3 % (40-54); Hemoglobin 15.4 g/dL (13.0-16.5); Lymphocyte # 0.57 X10^3/ul (0.83-4.51); Mean Corp Hgb Conc 31.2 g/dL (32-36); Mean Corpuscular Hgb 28.5 pg (27.0-32.0); Mean Corpuscular Volume 91.1 fL (80-94); Mean Platelet Vol. 11.4 fl (6.2-12.0); Monocyte# 0.57 X10^3/uL; NRBC Flagged by Analyzer 0 % (0-5); Neutrophil # 12.66 X10^3/uL (2.7-7.7); Neutrophil % 89.5 % (47-70); POSITIVE DIFFERENTIAL YES; Platelet Count 141 K/mm3 (150-450); RBC Distribution Width CV 14.3 % (11.6-14.6); Red Blood Count 5.41 M/mm3 (4.6-6.2); White Blood Count 14.2 K/mm3 (4.4-11.0)
[2021-02-06] MEDS: Dexmedetomidine 1,000 mcg in 0.9% NS 240 mL 18.1 MCG CONT INF (05:47)
[2021-02-06 06:08] LABS: Anion Gap 7 (5-15); BUN 60 mg/dL (7-18); BUN/Creat Ratio 49.2 RATIO (10-20); Calcium,Total 7.8 mg/dL (8.5-10.1); Chloride 110 mmol/L (98-107); Creatinine, Serum 1.22 mg/dL (0.70-1.30); EST Glomerular Filtration Rate 62 mL/min (>60); Est Glom Filt Rate - Afr Amer 75 mL/min (>60); Estimated Creatinine Clearance 56.51 ml/min; Glucose 198 mg/dL (74-106); Potassium 4.2 mmol/L (3.5-5.1); Sodium Level 141 mmol/L (136-145)
--- NOTE | 2021-02-06 06:36 | PCM.PN.INT ---
Assessment & Plan Assessment/Plan (1) Acute respiratory failure with hypoxia: (2) Pneumonia due to COVID-19 virus: (3) Stenosis of left internal carotid artery: (4) Chronic kidney disease (CKD): (5) Obstructive sleep apnea: PLAN: RECOMMENDATIONS: 1. Continue to wean FiO2 and PEEP for saturations greater than 90%. 2. Given tenuous respiratory status, max out sedation regimen. 3. If the patient remains dyssynchronous, consider cis atracurium. 4. If needed, low-dose Levophed can be initiated to maintain hemodynamic stability. 5. Continue baricitinib to complete treatment course. 6. Continue tube feeds as tolerated. 7. Continue Eliquis as ordered. 8. Diuretics as needed to maintain euvolemic state. IMPRESSIONS: 1. Acute hypoxic respiratory failure secondary to COVID-19 pneumonia The patient was initially admitted to the hospital on January 30 with COVID-19 pneumonia. To date, the patient has completed a treatment course of remdesivir and Decadron. He remains on baricitinib. Ultimately, the patient decompensated from a respiratory perspective and required intubation and invasive mechanical ventilatory support. The patient did complete a treatment course of antimicrobials given Streptococcus isolated from sputum. His oxygenation status still remains quite tenuous. Plan to continue baricitinib to complete treatment course. His sedation regimen will be further optimized today. Plan to administer IV diuretics today. Levophed can be utilized, if needed, to maintain hemodynamic stability in the setting of increasing need for sedation. Continue tube feeds as tolerated along with appropriate GI prophylaxis. Continue Eliquis per home regimen. Continue scheduled bronchodilator therapy. 2. Recent retinal artery occlusion/paroxysmal A. fib/nonvaccinated status/advanced age Complicates care, management, recovery and prognosis. Continue home medications as indicated. Continue nutritional support via tube feeds. TIME: 36 minutes of critical care time, independent of procedures, was spent addressing the patient's acute hypoxemic respiratory failure secondary to COVID-19 pneumonia. Subjective Subjective The patient was seen and examined at the bedside this morning. Events from the last 24 hours have been reviewed. Today is vent day #4. The patient is currently febrile with a T-max overnight of 102.2 ?F. The patient's FiO2 and PEEP had to be increased overnight after she decompensated with repositioning in bed. The patient is currently on assist control mode of mechanical ventilation with an FiO2 requirement of 100% and PEEP of 12. He is currently sedated on Precedex, propofol and fentanyl. The patient is currently tolerating tube feeds. He is currently documented to be overall net +4.7 L for the hospitalization. The patient has completed treatment courses of remdesivir and Decadron. He remains on baricitinib and Eliquis. Objective Data Objective Data The patient's most recent lab work, culture data and imaging studies have all been personally reviewed. Surface echocardiogram dated December 30 demonstrated normal LV size and function with an ejection fraction of 55%. Rapid coronavirus antigen testing was positive on January 29. Strep and urine Legionella antigens were negative. Respiratory viral panel was negative. Sputum culture has not demonstrated any growth to date. Vital Signs: Vital Signs Temp Pulse Resp BP Pulse Ox 101.5 F H 82 14 89/59 L 86 02/06/21 06:00 02/06/21 06:00 02/06/21 06:00 02/06/21 06:00 02/06/21 06:00 Oxygen Flow Rate (L/min) 60 Oxygen Delivery Method Mechanical Ventilator Weight: 92.2 kg Body Mass Index (BMI) 29.2 Intake & Output: Intake and Output for Last 24 Hours 02/04/21 02/05/21 02/06/21 23:59 23:59 23:59 Intake Total 1572.18 / 2238.23 4234.39 / 4418.89 522.90 / 522.90 Output Total 1125 / 1550 2175 / 2525 350 / 350 Balance 447.18 / 688.23 2059.39 / 1893.89 172.90 / 172.90 Medical Nutrition Assessment Dietitian: Malnutrition Criteria Met Start: 01/30/21 12:20 Freq: Status: Active Protocol: Document 02/05/21 10:01 (Rec: 02/05/21 10:01 [id number]) Nutrition Malnutrition Evidence of Malnutrition Exists Yes Malnutrition (severe): Acute Illness/Injury Evidenced By Suboptimal Energy Intake ( Severe),Weight Loss (Severe) Intake Problem Inadequate Oral Intake Etiology r/t resp. 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 As ordered, enteral nutrition support meets 78% of estimated calorie, 100% estimated protein needs Lab / Micro Data Attestation: I reviewed the patient's lab results. Result Diagrams: 02/06/21 05:10 02/06/21 05:10 Labs: Laboratory Results - last 24 hr 02/06/21 05:10: Sodium 141, Potassium 4.2, Chloride 110 H, Carbon Dioxide 24.0, Anion Gap 7, BUN 60 H, Creatinine 1.22, Estim Creat Clear Calc 56.51, Est GFR (MDRD) Af Amer 75, Est GFR (MDRD) Non-Af 62, BUN/Creatinine Ratio 49.2 H, Glucose 198 H, Calcium 7.8 L Micro: Microbiology 02/03/21 16:10 Sputum, Expectorated/Coughed Gram Stain - Final 02/03/21 16:10 Sputum, Expectorated/Coughed Respiratory Culture - Preliminary Culture exhibits no growth. 01/29/21 18:30 Blood Culture (Wb) - Anticubital Left Blood Culture - Final No growth in 5 days. 01/29/21 18:40 Blood Culture (Wb) - Anticubital Right Blood Culture - Final No growth in 5 days. 01/30/21 10:45 Sputum, Expectorated/Coughed Gram Stain - Final 01/30/21 10:45 Sputum, Expectorated/Coughed Respiratory Culture - Final Streptococcus group G 01/30/21 00:19 Urine, Clean Catch Streptococcus pneumoniae Antigen (M - Final 01/30/21 00:19 Urine, Clean Catch Legionella Antigen - Final 01/30/21 02:00 Mucosa - Nasopharyngeal Respiratory Panel (PCR) - Final 01/29/21 20:15 Nasal Secretion SARS-CoV-2 Antigen (Rapid) - Final SARS-CoV-2 (COVID 19) Radiography Diagnostic Testing: Radiology Impression Chest X-Ray 02/06/21 00:58 IMPRESSION: 1. No convincing evidence for pneumothorax. 2. Stable support devices. 3. Lung volumes are slightly lower in the interval with increasing subsegmental atelectasis at the bases. Bilateral multilobar airspace disease is otherwise grossly unchanged from before. 4. No other changes. Electronically Signed: Kevin Donnelly MD at 1:40 EST Tel , Service support , Physical Exam Const Constitutional Narrative: Intubated, sedated and mechanically ventilated. Occasional double triggering. HEENT normocephalic and head/scalp atraumatic Mouth: endotracheal tube in place and OG tube in place Eyes PERRL and EOMs intact bilaterally Neck supple General: trachea midline Resp Auscultation: diminished lung sounds Cardio regular rate and regular rhythm GI normal to inspection, nondistended, normoactive bowel sounds Extremity no clubbing, cyanosis or edema Skin no rashes or lesions noted Neuro Sensorium / Orientation: sedated on vent Charges/Coding Procedures Hospitalists Procedures: [id number] Critial Care 1st Hr
[2021-02-06] MEDS: TITRATION PARAMETER CHANGE 1 EACH IV ×2 (07:04→09:43)
[2021-02-06 07:18] LABS: Differential Indicated SCAN CRITERIA MET
--- NOTE | 2021-02-06 07:26 | PCM.PN.HOSP ---
Subjective Subjective Patient is a 71-year-old gentleman who presented with progressive shortness of breath. An assessment of Covid pneumonia made. Patient was started on remdesivir Decadron. His respiratory status deteriorated resulting in patient being intubated. Sputum culture so far positive for Streptococcus species Objective Data Objective Data Vital Signs: Vital Signs Temp Pulse Resp BP Pulse Ox 101.5 F H 86 15 92/61 85 02/06/21 07:00 02/06/21 07:00 02/06/21 07:00 02/06/21 07:00 02/06/21 07:00 Oxygen Flow Rate (L/min) 60 Oxygen Delivery Method Mechanical Ventilator Weight: 92.2 kg Body Mass Index (BMI) 29.2 Intake & Output: Intake and Output for Last 24 Hours 02/04/21 02/05/21 02/06/21 23:59 23:59 23:59 Intake Total 1572.18 / 2238.23 4234.39 / 4418.89 1156.46 / 1156.46 Output Total 1125 / 1550 2175 / 2525 450 / 450 Balance 447.18 / 688.23 2059.39 / 1893.89 706.46 / 706.46 Medical Nutrition Assessment Dietitian: Malnutrition Criteria Met Start: 01/30/21 12:20 Freq: Status: Active Protocol: Document 02/05/21 10:01 (Rec: 02/05/21 10:01 [id number]) Nutrition Malnutrition Evidence of Malnutrition Exists Yes Malnutrition (severe): Acute Illness/Injury Evidenced By Suboptimal Energy Intake ( Severe),Weight Loss (Severe) Intake Problem Inadequate Oral Intake Etiology r/t resp. 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 As ordered, enteral nutrition support meets 78% of estimated calorie, 100% estimated protein needs Lab / Micro Data Result Diagrams: 02/06/21 05:10 02/06/21 05:10 Labs: Laboratory Results - last 24 hr 02/06/21 05:10: Sodium 141, Potassium 4.2, Chloride 110 H, Carbon Dioxide 24.0, Anion Gap 7, BUN 60 H, Creatinine 1.22, Estim Creat Clear Calc 56.51, Est GFR (MDRD) Af Amer 75, Est GFR (MDRD) Non-Af 62, BUN/Creatinine Ratio 49.2 H, Glucose 198 H, Calcium 7.8 L 02/06/21 05:10: WBC 14.2 H, RBC 5.41, Hgb 15.4, Hct 49.3, MCV 91.1, MCH 28.5, MCHC 31.2 L, RDW Std Deviation 48.0 H, RDW Coeff of Kaylee 14.3, Plt Count 141 L, MPV 11.4, Immature Gran % (Auto) 1.100 H, Neut % (Auto) 89.5 H, Lymph % (Auto) 4.0 L, [place] % (Auto) 4.0, Eos % (Auto) 1.3, Baso % (Auto) 0.1, Absolute Neuts (auto) 12.7 H, Absolute Lymphs (auto) 0.57 L, Nucleated RBC % 0 Micro: Microbiology 02/03/21 16:10 Sputum, Expectorated/Coughed Gram Stain - Final 02/03/21 16:10 Sputum, Expectorated/Coughed Respiratory Culture - Preliminary Culture exhibits no growth. 01/29/21 18:30 Blood Culture (Wb) - Anticubital Left Blood Culture - Final No growth in 5 days. 01/29/21 18:40 Blood Culture (Wb) - Anticubital Right Blood Culture - Final No growth in 5 days. 01/30/21 10:45 Sputum, Expectorated/Coughed Gram Stain - Final 01/30/21 10:45 Sputum, Expectorated/Coughed Respiratory Culture - Final Streptococcus group G 01/30/21 00:19 Urine, Clean Catch Streptococcus pneumoniae Antigen (M - Final 01/30/21 00:19 Urine, Clean Catch Legionella Antigen - Final 01/30/21 02:00 Mucosa - Nasopharyngeal Respiratory Panel (PCR) - Final 01/29/21 20:15 Nasal Secretion SARS-CoV-2 Antigen (Rapid) - Final SARS-CoV-2 (COVID 19) Radiography Diagnostic Testing: Radiology Impression Chest X-Ray 02/06/21 00:58 IMPRESSION: 1. No convincing evidence for pneumothorax. 2. Stable support devices. 3. Lung volumes are slightly lower in the interval with increasing subsegmental atelectasis at the bases. Bilateral multilobar airspace disease is otherwise grossly unchanged from before. 4. No other changes. Electronically Signed: Kevin Donnelly MD at 1:40 EST Tel , Service support , Physical Exam Narrative GENERAL: Sedated on the vent HEENT: Atraumatic; EYES; Anicteric, Normal Conjunctiva NECK; supple, normal thyroid, RESPIRATORY: Diminished to auscultation CARDIOVASCULAR: Regular S1 S2, GI: soft, normoactive bowel sounds, : No Renal angle tenderness; EXTREMITIES: No edema, no clubbing, MUSCULOSKELETAL: no muscle waisting NEURO: Sedated on the vent SKIN: No Rash Assessment & Plan Assessment/Plan (1) Pneumonia due to COVID-19 virus: (2) Acute respiratory failure with hypoxia: PLAN: Patient is a 71-year-old gentleman who presented with progressive shortness of breath. An assessment of Covid pneumonia made. Patient was started on remdesivir Decadron. His respiratory status deteriorated resulting in patient being intubated. Sputum culture so far positive for Streptococcus species 1. Acute hypoxic respiratory failure Secondary to COVID-19 pneumonia. Patient hospital status deteriorated resulting in patient being intubated on 02/03/2021 2. COVID-19 pneumonia ?Patient has completed treatment with Decadron and remdesivir had to be intubated due to worsening respiratory status baricitinib was added to patient's therapy 3. Streptococcal pneumonia ?Superimposed on patient COVID 19 pneumonia patient completed treated with 4. Paroxysmal A. fib ?On systemic anticoagulation with apixaban and rate control with metoprolol 5. Recent history of retinal artery occlusion ?Secondary to above 6. Hypertension - Blood pressure controlled, home medications continued with dose adjustment as needed 7. Dyslipidemia ?Patient is on atorvastatin at home 8. Hypothyroidism ?On levothyroxine 9. DVT prophylaxis ?On apixaban Charges/Coding Visit Charges Inpatient E&M: 96869 Subs Hosp L3
--- NOTE | 2021-02-06 07:41 | NURSING ---
Propofol max titrated this morning to 50mg/hr and fentanyl titrated to 200mcg/hr per orders by Dr. Arroyo. Pt's blood pressure dropped drastically so propofol and fentanyl changed back to original settings while waiting for levophed to arrive to floor.
[2021-02-06] MEDS: CHLORHEXIDINE GLUC 2% CLOTH 1 EACH TOWELETTE TOPICAL (07:59)
[2021-02-06] MEDS: Chlorhexidine 15 ML PO ×2 (07:59→21:28)
[2021-02-06] MEDS: Senna/Docusate Sodium 1 Tablet 2 TABLET PO ×2 (08:00→21:27)
[2021-02-06] MEDS: prednisoLONE eye drops (5 mL) 1 DROP OPTH.BTL 1 DRP LEFT EYE ×4 (08:00→21:28)
[2021-02-06] MEDS: APIXABAN 5 MG TABLET PO ×2 (08:00→21:28)
[2021-02-06] MEDS: Levothyroxine 112 MCG Tablet PO (08:00)
[2021-02-06] MEDS: Polyethylene Glycol 3350 17 GM PACKET PO (08:00)
[2021-02-06] MEDS: 0.9% Saline Lock 10 ML Syringe IV (08:01)
[2021-02-06] MEDS: Propofol 10MG/Ml 1,000 MG/100 ML Bottle 27.7 MG CONT INF (08:47)
[2021-02-06] MEDS: Furosemide 40 MG/4 ML Vial IV ×2 (11:19→17:29)
--- NOTE | 2021-02-06 12:06 | CASEMGMT ---
Social Work SW participated in ICU rounds this morning. SW called daughter Kendra, offered support. SW gave Kendra this SW's number, remains available for support to pt's family. TADEO Bain
--- NOTE | 2021-02-06 12:18 | NURSING ---
discussed with dietitian on recommendation for restarting tube feed- will start at 30 ml/hr and increase as previously ordered
[2021-02-06] MEDS: Propofol 10MG/Ml 1,000 MG/100 ML Bottle 24.9 MG CONT INF (12:24)
[2021-02-06] MEDS: Propofol 10MG/Ml 1,000 MG/100 ML Bottle 19.4 MG CONT INF (15:14)
[2021-02-06] MEDS: Propofol 10MG/Ml 1,000 MG/100 ML Bottle 13.8 MG CONT INF (18:23)
[2021-02-06] MEDS: Dexmedetomidine 1,000 mcg in 0.9% NS 240 mL 16.1 MCG CONT INF (20:36)
[2021-02-06] MEDS: Atorvastatin Calcium 40 MG Tablet PO (21:27)
[2021-02-07] VITALS (36 sets, daily range): BP systolic 74–96; BP diastolic 54–68; PULSE 74–90; RESP 12–23; TEMP 37.3–38.8; O2SAT 86–95
[2021-02-07] MEDS: Propofol 10MG/Ml 1,000 MG/100 ML Bottle 11.1 MG CONT INF (02:36)
[2021-02-07] MEDS: Vital High Protein 1,000 ML 65 ML GT (02:36)
[2021-02-07] MEDS: CHLORHEXIDINE GLUC 2% CLOTH 1 EACH TOWELETTE TOPICAL (04:58)
[2021-02-07] MEDS: Propofol 10MG/Ml 1,000 MG/100 ML Bottle 16.6 MG CONT INF (04:59)
[2021-02-07 05:51] LABS: Absolute Lymphocyte Count 0.55 X10^3/uL (0.83-4.51); Absolute Neutrophil Count 10.6 X10^3/uL (2.0-7.7); Basophil# 0.03 X10^3/uL; Basophil% 0.2 % (0-1); Differential Indicated SCAN CRITERIA MET; Eosinophil# 0.24 X10^3/uL; Hematocrit 49.8 % (40-54); Hemoglobin 15.5 g/dL (13.0-16.5); Lymphocyte # 0.55 X10^3/ul (0.83-4.51); Lymphocyte % 4.6 % (19-41); Mean Corp Hgb Conc 31.1 g/dL (32-36); Mean Corpuscular Hgb 28.6 pg (27.0-32.0); Mean Corpuscular Volume 91.9 fL (80-94); Mean Platelet Vol. 12.1 fl (6.2-12.0); Monocyte# 0.44 X10^3/uL; Monocyte% 3.7 % (0-10); NRBC Flagged by Analyzer 0 % (0-5); Neutrophil # 10.64 X10^3/uL (2.7-7.7); Neutrophil % 88.3 % (47-70); POSITIVE DIFFERENTIAL YES; Platelet Count 128 K/mm3 (150-450); RBC Distribution Width CV 14.6 % (11.6-14.6); RBC Distribution Width SD 49.6 fl (35.1-43.9); Red Blood Count 5.42 M/mm3 (4.6-6.2); White Blood Count 12.1 K/mm3 (4.4-11.0)
[2021-02-07 06:05] LABS: AST(SGOT) 34 U/L (15-37); Alanine Aminotransfer ALT/SGPT 21 U/L (16-61); Albumin, Serum 1.6 g/dL (3.2-5.0); Alkaline Phosphatase 80 U/L (45-117); Anion Gap 7 (5-15); BUN 71 mg/dL (7-18); BUN/Creat Ratio 39.7 RATIO (10-20); Bilirubin, Direct 0.52 mg/dL (0.00-0.30); Chloride 108 mmol/L (98-107); Creatinine, Serum 1.79 mg/dL (0.70-1.30); EST Glomerular Filtration Rate 40 mL/min (>60); Est Glom Filt Rate - Afr Amer 48 mL/min (>60); Estimated Creatinine Clearance 38.52 ml/min; Globulin 4.7 g/dL (2.2-4.2); Glucose 155 mg/dL (74-106); Potassium 4.4 mmol/L (3.5-5.1); Protein, Total 6.3 g/dL (6.4-8.2); Sodium Level 141 mmol/L (136-145)
--- NOTE | 2021-02-07 06:10 | PN.CC_ITS ---
Assessment & Plan Assessment/Plan (1) Acute respiratory failure with hypoxia: (2) Pneumonia due to COVID-19 virus: (3) Stenosis of left internal carotid artery: (4) Chronic kidney disease (CKD): (5) Obstructive sleep apnea: PLAN: RECOMMENDATIONS: 1. Continue to wean FiO2 and PEEP for saturations greater than 90%. 2. Continue current sedation regimen. 3. Wean Levophed to maintain a mean arterial pressure at or above 65 mmHg. 4. Continue baricitinib to complete treatment course. 5. Continue tube feeds as tolerated. 6. Continue Eliquis as ordered. 7. Hold diuretics given RENATO. IMPRESSIONS: 1. Acute hypoxic respiratory failure secondary to COVID-19 pneumonia The patient was initially admitted to the hospital on January 30 with COVID-19 pneumonia. To date, the patient has completed a treatment course of remdesivir and Decadron. He remains on baricitinib. Ultimately, the patient decompensated from a respiratory perspective and required intubation and invasive mechanical ventilatory support. The patient did complete a treatment course of antimicrobials given Streptococcus isolated from sputum. His oxygenation status still remains quite tenuous. Plan to continue baricitinib to complete treatment course. Levophed can be utilized, if needed, to maintain hemodynamic stability in the setting of increasing need for sedation. Continue tube feeds as tolerated along with appropriate GI prophylaxis. Continue Eliquis per home r oskarimen. Continue scheduled bronchodilator therapy. 2. Recent retinal artery occlusion/paroxysmal A. fib/nonvaccinated status/advanced age Complicates care, management, recovery and prognosis. Continue home medications as indicated. Continue nutritional support via tube feeds. TIME: 34 minutes of critical care time, independent of procedures, was spent addressing the patient's acute hypoxemic respiratory failure secondary to COVID- 19 pneumonia. Subjective Subjective The patient was seen and examined at the bedside this morning. Events from the last 24 hours have been reviewed. Today is vent day #5. Patient currently has a low-grade fever with a T-max overnight of 101.8 ?F. The patient remains on low-dose Levophed at 2 mcg/min to maintain hemodynamic stability. He remains on assist control mode mechanical ventilation with an FiO2 requirement of 70% and PEEP of 12. The patient is currently sedated on a combination of propofol, fentanyl and Precedex. Nursing staff did report high tube feed residuals overnight. The patient has yet to have a bowel movement. He is currently documented to be overall net +5.8 L for the hospitalization. The patient has completed treatment courses of remdesivir and Decadron. He remains on baricitinib and Eliquis. Creatinine has increased to 1.79. Accordingly, the patient's Lasix was discontinued this morning. Objective Data Objective Data The patient's most recent lab work, culture data and imaging studies have all been personally reviewed. Surface echocardiogram dated December 30 demonstrated normal LV size and function with an ejection fraction of 55%. Rapid coronavirus antigen testing was positive on January 29. Strep and urine Legionella antigens were negative. Respiratory viral panel was negative. Sputum culture has not demonstrated any growth to date. Vital Signs: Vital Signs Temp Pulse Resp BP Pulse Ox 100.8 F H 77 16 85/58 L 89 02/07/21 05:00 02/07/21 05:00 02/07/21 05:00 02/07/21 05:00 02/07/21 05:00 Oxygen Flow Rate (L/min) 60 Oxygen Delivery Method Mechanical Ventilator Weight: 92.2 kg Body Mass Index (BMI) 29.2 Intake & Output: Intake and Output for Last 24 Hours 02/05/21 02/06/21 02/07/21 23:59 23:59 23:59 Intake Total 4234.39 / 4418.89 3004.63 / 3050.63 361.61 / 361.61 Output Total 2175 / 2525 1100 / 1650 550 / 550 Balance 2059.39 / 1893.89 1904.63 / 1400.63 -188.39 / -188.39 Medical Nutrition Assessment Dietitian: Malnutrition Criteria Met Start: 01/30/21 12:20 Freq: Status: Active Protocol: Document 02/06/21 10:30 [facility] (Rec: 02/06/21 10:30 [facility] [id number]) Nutrition Malnutrition Evidence of Malnutrition Exists Yes Malnutrition (severe): Acute Illness/Injury Evidenced By Suboptimal Energy Intake ( Severe),Weight Loss (Severe) Intake Problem Inadequate Oral Intake Etiology r/t resp. 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 As ordered, enteral nutrition support meets 78% of estimated calorie, 100% estimated protein needs Lab / Micro Data Result Diagrams: 02/07/21 05:10 02/07/21 05:10 Labs: Laboratory Results - last 24 hr 02/06/21 05:10: WBC 14.2 H, RBC 5.41, Hgb 15.4, Hct 49.3, MCV 91.1, MCH 28.5, MCHC 31.2 L, RDW Std Deviation 48.0 H, RDW Coeff of Kaylee 14.3, Plt Count 141 L, MPV 11.4, Immature Gran % (Auto) 1.100 H, Neut % (Auto) 89.5 H, Lymph % (Auto) 4.0 L, Waldo % (Auto) 4.0, Eos % (Auto) 1.3, Baso % (Auto) 0.1, Absolute Neuts (auto) 12.7 H, Absolute Lymphs (auto) 0.57 L, Nucleated RBC % 0 02/07/21 05:10: WBC 12.1 H, RBC 5.42, Hgb 15.5, Hct 49.8, MCV 91.9, MCH 28.6, MCHC 31.1 L, RDW Std Deviation 49.6 H, RDW Coeff of Kaylee 14.6, Plt Count 128 L, MPV 12.1 H, Immature Gran % (Auto) 1.200 H, Neut % (Auto) 88.3 H, Lymph % (Auto) 4.6 L, Waldo % (Auto) 3.7, Eos % (Auto) 2.0, Baso % (Auto) 0.2, Absolute Neuts (auto) 10.6 H, Absolute Lymphs (auto) 0.55 L, Nucleated RBC % 0 02/07/21 05:10: Sodium 141, Potassium 4.4, Chloride 108 H, Carbon Dioxide 26.0, Anion Gap 7, BUN 71 H, Creatinine 1.79 H, Estim Creat Clear Calc 38.52, Est GFR (MDRD) Af Amer 48 L, Est GFR (MDRD) Non-Af 40 L, BUN/Creatinine Ratio 39.7 H, Glucose 155 H, Calcium 8.0 L, Total Bilirubin 0.80, Direct Bilirubin 0.52 H, AST 34, ALT 21, Alkaline Phosphatase 80, Total Protein 6.3 L, Albumin 1.6 L, Globulin 4.7 H Micro: Microbiology 02/03/21 16:10 Sputum, Expectorated/Coughed Gram Stain - Final 02/03/21 16:10 Sputum, Expectorated/Coughed Respiratory Culture - Final Culture exhibits no growth. 01/29/21 18:30 Blood Culture (Wb) - Anticubital Left Blood Culture - Final No growth in 5 days. 01/29/21 18:40 Blood Culture (Wb) - Anticubital Right Blood Culture - Final No growth in 5 days. 01/30/21 10:45 Sputum, Expectorated/Coughed Gram Stain - Final 01/30/21 10:45 Sputum, Expectorated/Coughed Respiratory Culture - Final Streptococcus group G 01/30/21 00:19 Urine, Clean Catch Streptococcus pneumoniae Antigen (M - Final 01/30/21 00:19 Urine, Clean Catch Legionella Antigen - Final 01/30/21 02:00 Mucosa - Nasopharyngeal Respiratory Panel (PCR) - Final 01/29/21 20:15 Nasal Secretion SARS-CoV-2 Antigen (Rapid) - Final SARS-CoV-2 (COVID 19) Physical Exam Const Constitutional Narrative: Intubated, sedated and mechanically ventilated. HEENT normocephalic and head/scalp atraumatic Mouth: endotracheal tube in place and OG tube in place Eyes PERRL and EOMs intact bilaterally Neck supple General: trachea midline Resp Auscultation: diminished lung sounds Cardio regular rate and regular rhythm GI normal to inspection, nondistended, normoactive bowel sounds Extremity no clubbing, cyanosis or edema Skin no rashes or lesions noted Neuro Sensorium / Orientation: sedated on vent Charges/Coding Procedures Hospitalists Procedures: 12764 Critial Care 1st Hr
[2021-02-07] MEDS: Dorzolamide 2% 10ml Bottle 1 DRP OPHTHALMIC ×3 (06:23→21:03)
[2021-02-07] MEDS: Ipratropium/Albuterol Sulfate 3 ML AMPUL.NEB INHALATION ×3 (06:42→19:02)
[2021-02-07] MEDS: TITRATION PARAMETER CHANGE 1 EACH IV (07:26)
--- NOTE | 2021-02-07 08:17 | PCM.PN.HOSP ---
Subjective Subjective Patient seen still remains on the vent Objective Data Objective Data Vital Signs: Vital Signs Temp Pulse Resp BP Pulse Ox 100.0 F H 77 18 86/62 L 90 02/07/21 06:00 02/07/21 06:59 02/07/21 06:43 02/07/21 06:00 02/07/21 06:43 Oxygen Flow Rate (L/min) 60 Oxygen Delivery Method Mechanical Ventilator Weight: 93.1 kg Body Mass Index (BMI) 29.2 Intake & Output: Intake and Output for Last 24 Hours 02/05/21 02/06/21 02/07/21 23:59 23:59 23:59 Intake Total 4234.39 / 4418.89 3004.63 / 3050.63 756.21 / 756.21 Output Total 2175 / 2525 1100 / 1650 800 / 800 Balance 2059.39 / 1893.89 1904.63 / 1400.63 -43.79 / -43.79 Medical Nutrition Assessment Dietitian: Malnutrition Criteria Met Start: 01/30/21 12:20 Freq: Status: Active Protocol: Document 02/06/21 10:30 [facility] (Rec: 02/06/21 10:30 [facility] [id number]) Nutrition Malnutrition Evidence of Malnutrition Exists Yes Malnutrition (severe): Acute Illness/Injury Evidenced By Suboptimal Energy Intake ( Severe),Weight Loss (Severe) Intake Problem Inadequate Oral Intake Etiology r/t resp. 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 As ordered, enteral nutrition support meets 78% of estimated calorie, 100% estimated protein needs Lab / Micro Data Result Diagrams: 02/07/21 05:10 02/07/21 05:10 Labs: Laboratory Results - last 24 hr 02/07/21 05:10: WBC 12.1 H, RBC 5.42, Hgb 15.5, Hct 49.8, MCV 91.9, MCH 28.6, MCHC 31.1 L, RDW Std Deviation 49.6 H, RDW Coeff of Kaylee 14.6, Plt Count 128 L, MPV 12.1 H, Immature Gran % (Auto) 1.200 H, Neut % (Auto) 88.3 H, Lymph % (Auto) 4.6 L, [place]hin % (Auto) 3.7, Eos % (Auto) 2.0, Baso % (Auto) 0.2, Absolute Neuts (auto) 10.6 H, Absolute Lymphs (auto) 0.55 L, Nucleated RBC % 0 02/07/21 05:10: Sodium 141, Potassium 4.4, Chloride 108 H, Carbon Dioxide 26.0, Anion Gap 7, BUN 71 H, Creatinine 1.79 H, Estim Creat Clear Calc 38.52, Est GFR (MDRD) Af Amer 48 L, Est GFR (MDRD) Non-Af 40 L, BUN/Creatinine Ratio 39.7 H, Glucose 155 H, Calcium 8.0 L, Total Bilirubin 0.80, Direct Bilirubin 0.52 H, AST 34, ALT 21, Alkaline Phosphatase 80, Total Protein 6.3 L, Albumin 1.6 L, Globulin 4.7 H Micro: Microbiology 02/03/21 16:10 Sputum, Expectorated/Coughed Gram Stain - Final 02/03/21 16:10 Sputum, Expectorated/Coughed Respiratory Culture - Final Culture exhibits no growth. 01/29/21 18:30 Blood Culture (Wb) - Anticubital Left Blood Culture - Final No growth in 5 days. 01/29/21 18:40 Blood Culture (Wb) - Anticubital Right Blood Culture - Final No growth in 5 days. 01/30/21 10:45 Sputum, Expectorated/Coughed Gram Stain - Final 01/30/21 10:45 Sputum, Expectorated/Coughed Respiratory Culture - Final Streptococcus group G 01/30/21 00:19 Urine, Clean Catch Streptococcus pneumoniae Antigen (M - Final 01/30/21 00:19 Urine, Clean Catch Legionella Antigen - Final 01/30/21 02:00 Mucosa - Nasopharyngeal Respiratory Panel (PCR) - Final 01/29/21 20:15 Nasal Secretion SARS-CoV-2 Antigen (Rapid) - Final SARS-CoV-2 (COVID 19) Physical Exam Narrative GENERAL: Sedated on the vent HEENT: Atraumatic; EYES; Anicteric, Normal Conjunctiva NECK; supple, normal thyroid, RESPIRATORY: Diminished to auscultation CARDIOVASCULAR: Regular S1 S2, GI: soft, normoactive bowel sounds, : No Renal angle tenderness; EXTREMITIES: No edema, no clubbing, MUSCULOSKELETAL: no muscle waisting NEURO: Sedated on the vent SKIN: No Rash Assessment & Plan Assessment/Plan (1) Pneumonia due to COVID-19 virus: (2) Acute respiratory failure with hypoxia: PLAN: Patient is a 71-year-old gentleman who presented with progressive shortness of breath. An assessment of Covid pneumonia made. Patient was started on remdesivir Decadron. His respiratory status deteriorated resulting in patient being intubated. Sputum culture so far positive for Streptococcus species 1. Acute hypoxic respiratory failure Secondary to COVID-19 pneumonia. Patient hospital status deteriorated resulting in patient being intubated on 02/03/2021 2. COVID-19 pneumonia ?Patient has completed treatment with Decadron and remdesivir had to be intubated due to worsening respiratory status baricitinib was added to patient's therapy 3. Streptococcal pneumonia ?Superimposed on patient COVID 19 pneumonia patient completed treated with 4. Hypotension ?Secondary to septic shock from COVID-19 pneumonia with superimposed bacterial infection. Treatment as above in addition to patient being on pressors 5. Recent history of retinal artery occlusion ?Secondary to above 6. Hypertension - Blood pressure on hold in view of low blood pressure 7. Dyslipidemia ?Patient is on atorvastatin at home 8. Hypothyroidism ?On levothyroxine 9. Paroxysmal A. fib ?On systemic anticoagulation with apixaban and rate control with metoprolol 10. DVT prophylaxis ?On apixaban Charges/Coding Visit Charges Inpatient E&M: [address] [facility] Hosp L3
[2021-02-07] MEDS: Senna/Docusate Sodium 1 Tablet 2 TABLET PO ×2 (08:22→21:03)
[2021-02-07] MEDS: Polyethylene Glycol 3350 17 GM PACKET PO (08:23)
[2021-02-07] MEDS: prednisoLONE eye drops (5 mL) 1 DROP OPTH.BTL 1 DRP LEFT EYE ×4 (08:23→21:04)
[2021-02-07] MEDS: Levothyroxine 112 MCG Tablet PO (08:23)
[2021-02-07] MEDS: APIXABAN 5 MG TABLET PO ×2 (08:23→21:03)
[2021-02-07] MEDS: Chlorhexidine 15 ML PO ×2 (08:23→21:03)
[2021-02-07] MEDS: Propofol 10MG/Ml 1,000 MG/100 ML Bottle 16.8 MG CONT INF ×4 (10:58→23:50)
[2021-02-07] MEDS: Bisacodyl 10 MG Suppository RC (11:26)
[2021-02-07] MEDS: Dexmedetomidine 1,000 mcg in 0.9% NS 240 mL 14 MCG CONT INF (13:43)
[2021-02-07] MEDS: Atorvastatin Calcium 40 MG Tablet PO (21:03)
[2021-02-08] VITALS (7 sets, daily range): BP systolic 88–106; BP diastolic 63–95; PULSE 89–146; RESP 15; TEMP 38.8–38.9; O2SAT 79–86
[2021-02-08] MEDS: Acetaminophen 650 MG/20 ML UDC PO ×2 (00:13→04:37)
--- NOTE | 2021-02-08 01:49 | EKG12_ITS ---
Test Reason : Blood Pressure : / mmHG Vent. Rate : 124 BPM Atrial Rate : 141 BPM P-R Int : 000 ms QRS Dur : 134 ms QT Int : 316 ms P-R-T Axes : 000 117 -27 degrees QTc Int : 453 ms Atrial fibrillation with rapid ventricular response Right bundle branch block T wave abnormality, consider inferior ischemia Abnormal ECG No previous ECGs available Confirmed by ARPITA MARES, ABEBA ([id number]), script editor TIARA HASTINGS ([id number]) on 02/21/2021 1:41:13 PM Referred By: JAYDON Confirmed By:ABEBA PALM MD
[2021-02-08] MEDS: Digoxin 250 MCG/ML Ampul 500 MCG IV (01:53)
--- NOTE | 2021-02-08 02:15 | NURSING ---
Spoke to family about pt decline in status. Was still full code in computer, but family wishes for him to be DNRCCA with intubation. Called Dr. Lamas to let him know about code status change.
[2021-02-08] MEDS: Metoprolol Tartrate 5 MG/5 ML Vial IV (02:39)
--- NOTE | 2021-02-08 05:18 | PCM.HOSP.N ---
Hospitalist Note I talked with the patient's family who was in his room early this morning, that he desired the patient to be terminally extubated and made comfort care, earlier tonight he went into A. fib with a fast ventricular response, I gave him some IV digoxin and IV metoprolol, it was after this episode that the patient's family decided to make him a comfort care and request terminal extubation. Orders were entered.
[2021-02-08] MEDS: LORazepam 2 MG/ML Syringe IV (05:37)
--- NOTE | 2021-02-08 07:00 | NURSING ---
Per family request, pt terminally extubated at 0545. Family remained at bedside. Time of was 0608. Provider (Adams), lining feller, [employer], and home notified.
--- NOTE | 2021-02-08 07:17 | PCM.DEATH ---
Preliminary Cause of Preliminary Cause of Preliminary Cause of : Acute hypoxic respiratory failure COVID 19 pneumonia Date of Admission: 01/29/21 Date of : 02/08/21 Principle Diagnosis Acute respiratory failure with hypoxia ?COVID 19 pneumonia Problem List: Active and Suspected Problems (Updated 01/30/21 @ 15:[address] Christofer Martínez, DO) Acute respiratory failure with hypoxia (Acute) Pneumonia due to COVID-19 virus (Acute) Hypoxia (Acute) Hospital Course Patient is a 71-year-old gentleman who presented with progressive shortness of breath. An assessment of Covid pneumonia made. Patient was started on remdesivir Decadron. His respiratory status deteriorated resulting in patient being intubated. Sputum culture so far positive for Streptococcus species. Patient clinical condition continues to worsen despite being on optimal medical treatment. Family elected for terminal wean which was performed on the morning of 02/08/2021. Patient was found without spontaneous breathing and without heart tones. He was pronounced on 02/08/2021 on 6:08 AM. Visit Charges Inpatient E&M: 08376 Disch Hosp
== END 2021-02-08 07:40 | DRG 207 ==
LOC: ED 23:28 → PCU 23:43 → ICU 02-01 08:42
PROVIDERS: Internal Medicine Critical Care Medicine; Admitting Provider Internal Medicine; Emergency Provider Emergency Medicine; PCP Nurse Practitioner Family; Visit Provider Internal Medicine
DX: U07.1 COVID-19 (principal); A41.89 Other specified sepsis; J12.82 Pneumonia due to coronavirus disease 2019; J96.01 Acute respiratory failure with hypoxia; R65.21 Severe sepsis with septic shock; E43 Unspecified severe protein-calorie malnutrition; G93.41 Metabolic encephalopathy; J15.4 Pneumonia due to other streptococci; J44.0 Chronic obstructive pulmonary disease with (acute) lower respiratory infection; N17.9 Acute kidney failure, unspecified; I48.0 Paroxysmal atrial fibrillation; I12.9 Hypertensive chronic kidney disease with stage 1 through stage 4 chronic kidney disease, or unspecified chronic kidney disease; N18.32 Chronic kidney disease, stage 3b; I65.01 Occlusion and stenosis of right vertebral artery; I65.22 Occlusion and stenosis of left carotid artery; I45.10 Unspecified right bundle-branch block; E03.9 Hypothyroidism, unspecified; E78.5 Hyperlipidemia, unspecified; H54.62 Unqualified visual loss, left eye, normal vision right eye; G47.33 Obstructive sleep apnea (adult) (pediatric); Z66 Do not resuscitate; Z79.01 Long term (current) use of anticoagulants; Z79.890 Hormone replacement therapy; Z79.899 Other long term (current) drug therapy; Z87.891 Personal history of nicotine dependence
CPT/HCPCS: 31500; 31720; 36415; 36600; 71045; 80048; 80053; 80076; 82550; 82803; 82962; 83605; 83615; 83735; 83880; 84100; 84145; 84478; 85025; 85379; 85384; 86140; 87040; 87070; 87077; 87205; 87426; 87449; 87633; 93005; 94002; 94003; 94640; 94660; 97110; 97162; 97166; 97530; 97802; 97803; 99251; 99285; J7030; J7040; J7050; J7120; A4216; G0463; J0696; J1940; J3010